=== PATIENT | male | born 1960 | race Caucasian/White ===

== ENCOUNTER 2020-06-13 09:24 | Outpatient (REF) | payer MEDICARE, OTHER, SELFPAY ==
--- NOTE | ~2020-06-13 | US_ITS ---
EXAMINATION: US ABDOMEN COMPLETE CLINICAL INFORMATION: Abnormal findings of blood chemistry. COMPARISON: Renal ultrasound 10/16/2009. Ultrasound abdomen 06/19/2009. TECHNIQUE: Real-time imaging of the abdominal viscera. FINDINGS: PANCREAS: The head and the body of pancreas is homogeneous in echotexture. The tail is obscured by overlying gas. ABDOMINAL AORTA: The abdominal aorta is of normal caliber except for nonvisualization of mid segment. INFERIOR VENA CAVA: Visualized portions are normal. LIVER: The liver is normal in size. The liver contour is normal. There is diffuse increased liver echogenicity with coarse echotexture. No focal hepatic lesion. There is no intrahepatic biliary duct dilatation seen. GALLBLADDER: Normal. The gallbladder is physiologically distended without evidence of stones, sludge, polyps, wall thickening or pericholecystic fluid. COMMON BILE DUCT: Normal in caliber measuring 0.4 cm in diameter. RIGHT KIDNEY: Normal. No hydronephrosis. No renal calculi or focal parenchymal lesions. The kidney measures 12.2 cm in maximum dimension. LEFT KIDNEY: There is an anechoic cyst midpole measuring 10.1 x 8.9 x 9.41 cm. No hydronephrosis or renal calculi. The kidney measures 14.5 cm in maximum dimension. SPLEEN: Normal. The spleen measures 11.8 cm in maximum dimension. FREE FLUID: None. US/US abdomen complete IMPRESSION: Coarse echogenic liver with no focal lesion seen. Anechoic cyst midpole left kidney. Rest of the abdominal ultrasound is unremarkable.
== END 2020-06-13 09:25 | disposition home or self-care (01) ==
LOC: HO.US 09:24
PROVIDERS: PCP Internal Medicine; Visit Provider Internal Medicine
DX: R79.89 Other specified abnormal findings of blood chemistry (principal)
CPT/HCPCS: 76700

== ENCOUNTER 2020-09-27 10:19 | Outpatient (REF) | payer MEDICARE, MEDICAID, SELFPAY ==
[2020-09-27 12:40] LABS: Alanine Aminotransferase 34 U/L (0-40); Albumin Level 4.3 g/dL (3.5-5.0); Alkaline Phosphatase 62 U/L (39-117); Anion Gap 12 (12-20); Aspartate Amino Transferase 28 U/L (5-37); Bilirubin Total 0.9 mg/dL (0.0-1.0); Blood Urea Nitrogen 12 mg/dL (9-16); Calcium 8.8 mg/dL (8.4-10.2); Carbon Dioxide 24 mmol/L (22-29); Chloride 104 mmol/L (96-108); Cholesterol 115 mg/dL; Estimated Glomerular Filt Rate > 60; Glucose Random 101 mg/dL (60-115); HDL Cholesterol 30 mg/dL; LDL Cholesterol Calculated 66 mg/dl; Potassium 3.9 mmol/L (3.3-5.1); Sodium 136 mmol/L (135-145); Total Protein 7.4 g/dL (6.5-8.0); Triglycerides 99 mg/dL
[2020-09-27 13:28] LABS: Creatinine Urine 53.72 mg/dL; Microalbum/Creatinine Ratio Ur 44.6 ug/mg cr
[2020-09-28 07:46] LABS: LDL Cholesterol Direct 59 mg/dL (<100)
== END 2020-09-27 10:20 | disposition home or self-care (01) ==
LOC: HO.LAB 10:19
PROVIDERS: PCP Internal Medicine; Visit Provider Internal Medicine
DX: E11.65 Type 2 diabetes mellitus with hyperglycemia (principal); E78.5 Hyperlipidemia, unspecified; E55.9 Vitamin D deficiency, unspecified; I10 Essential (primary) hypertension; Z79.899 Other long term (current) drug therapy
CPT/HCPCS: 36415; 80053; 80061; 82043; 82947; 83036; 83721; 99202

== ENCOUNTER 2021-07-19 08:19 | Outpatient (REF) | payer MEDICARE, MEDICAID, SELFPAY ==
--- NOTE | 2021-07-19 14:59 | MHC.AU.HAS ---
Hearing Aid Evaluation Date of Visit: 07/19/21 Historical Information: Description of Hearing: Right ear- Normal hearing through 1000 Hz, sloping to a mild to moderately-severe SNHL 4407-7958 Hz. Left ear- Mild HL at 250 Hz, rising to normal 500-1000 Hz, then sloping to a mild to moderately-severe SNHL 5784-0380 Hz. Current personal amplification information, if applicable: None Summary: Demetris was recently seen at [facility] and received medical clearance for hearing aid use in both ears from Dr. Vallejo. Binaural amplification is recommended to help facilitate improved communication. He notes difficulties hearing the TV, in background noise, and often asks for repetition. 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 Discussed hearing aid styles and technologies. He is interested in rechargeable ELLIOTT style hearing aids couple with domes. He is interested in Bluetooth connectivity with his Oravel phone and his PC laptop. Hearing Aid Prescription: Based on the individual?s shared listening needs, communication environments, dexterity, desire for connectivity, and personal preferences, the following prescription for amplification has been made: Right ear: Sourcing Associate: Phonak Model: Audeo P70-R Battery Size: Rechargeable Color: H0- Beige Customer Service Sales Associate: Size 2 M Type of Dome: Open Left ear: Left ear prescription to be same as Right Hearing Aid above: Sourcing Associate: Phonak Model: Audeo P70-R Battery Size: Rechargeable Color: H0- Beige Customer Service Sales Associate: Size 2 M Type of Dome: Open Plan of Care: Hearing aids were ordered today. Hearing aid fitting will be scheduled when hearing aids arrive. Primary Diagnosis: H90.3 Bilateral Sensorineural Hearing Loss Signature: Provider: Elana Galo, [facility]
== END 2021-07-19 08:20 | disposition home or self-care (01) ==
LOC: HO.HAP 08:19
PROVIDERS: Visit Provider Internal Medicine
DX: Z46.1 Encounter for fitting and adjustment of hearing aid (principal); H90.3 Sensorineural hearing loss, bilateral
CPT/HCPCS: 92591

== ENCOUNTER 2021-08-03 15:49 | Outpatient (REF) | payer MEDICARE, MEDICAID, SELFPAY | END 2021-08-03 15:50 | disposition home or self-care (01) | LOC: HO.HAP 15:49 | PROVIDERS: Visit Provider Otolaryngology | DX: Z46.1 Encounter for fitting and adjustment of hearing aid (principal); H90.3 Sensorineural hearing loss, bilateral | CPT/HCPCS: V5011; V5020; V5160; V5261 ==

== ENCOUNTER 2021-08-23 08:14 | Outpatient (REF) | payer MEDICARE, MEDICAID, SELFPAY | END 2021-08-23 08:15 | disposition home or self-care (01) | LOC: HO.HAP 08:14 | PROVIDERS: Visit Provider Internal Medicine | DX: Z13.89 Encounter for screening for other disorder (principal) ==

== ENCOUNTER 2022-02-18 07:31 | Outpatient (REF) | payer MEDICARE, MEDICAID, SELFPAY ==
[2022-02-18 10:04] LABS: Alanine Aminotransferase 87 U/L (0-40); Anion Gap 18 (12-20); Aspartate Amino Transferase 51 U/L (5-37); Bilirubin Total 0.9 mg/dL (0.0-1.0); Blood Urea Nitrogen 16 mg/dL (9-16); Calcium 9.6 mg/dL (8.4-10.2); Carbon Dioxide 22 mmol/L (22-29); Chloride 103 mmol/L (96-108); Estimated Glomerular Filt Rate > 60; Glucose Random 173 mg/dL (60-115); Potassium 3.4 mmol/L (3.3-5.1); Sodium 140 mmol/L (135-145); Total Protein 7.8 g/dL (6.5-8.0)
[2022-02-18 10:05] LABS: Albumin Level 4.4 g/dL (3.5-5.0); Alkaline Phosphatase 63 U/L (39-117); Cholesterol 134 mg/dL; HDL Cholesterol 29 mg/dL; LDL Cholesterol Calculated 48 mg/dl; Triglycerides 286 mg/dL
[2022-02-18 10:06] LABS: Creatinine Urine 49.61 mg/dL; Microalbum/Creatinine Ratio Ur 56.4 ug/mg cr
[2022-02-18 10:26] LABS: Free T4 (Free Thyroxine) 1.04 ng/dL (0.71-1.85); Thyroid Stimulating Hormone 2.38 uIU/mL (0.32-4.0)
[2022-02-19 09:02] LABS: LDL Cholesterol Direct 62 mg/dL (<100)
== END 2022-02-18 07:32 | disposition home or self-care (01) ==
LOC: HO.LAB 07:31
PROVIDERS: PCP Internal Medicine; Visit Provider Internal Medicine
DX: E11.65 Type 2 diabetes mellitus with hyperglycemia (principal); E78.5 Hyperlipidemia, unspecified; I10 Essential (primary) hypertension; E04.9 Nontoxic goiter, unspecified
CPT/HCPCS: 36415; 80053; 80061; 82043; 82947; 83036; 83721; 84439; 84443; 99212

== ENCOUNTER 2022-03-25 12:55 | Outpatient (REF) | payer MEDICARE, MEDICAID, SELFPAY ==
--- NOTE | ~2022-03-25 | US_ITS ---
EXAMINATION: US THYROID CLINICAL INFORMATION: Nontoxic goiter, unspecified. COMPARISON: None TECHNIQUE: Linear transducer grayscale and color Doppler examination with attention to the region of the thyroid. FINDINGS: SIZE: Measurements of the thyroid lobes and nodules are given in sagittal, anteroposterior and transverse dimensions respectively. Right Thyroid Lobe: 4.4 x 2.0 x 1.7 cm, volume 7.8 mL. Parenchyma: The gland echotexture is heterogeneous. Thyroid vascularity is normal. Left Thyroid Lobe: 3.8 x 1.4 x 1.5 cm, volume 4.2 mL. Parenchyma: The gland echotexture is heterogeneous. Thyroid vascularity is normal. Isthmus: 0.4 cm in maximum AP dimension. No focal thyroid nodule is seen. NODES: No lymphadenopathy is seen in the tissue surrounding the thyroid gland. US/US thyroid IMPRESSION: 1. No thyroid nodule, altered vascularity or echotexture are seen. 2. There is heterogeneous thyroid echotexture, which can be associated with thyroiditis. ACR TI-RADS RECOMMENDATION REFERENCE: Ultrasound-guided fine-needle aspiration, followup ultrasound, no further follow up. * TR1 (0 point) and TR 2 (2 points): No FNA or follow up. * TR3 (3 points): FNA if more than or equal to 2.5 cm in maximum dimension, followup ultrasound in 1, 3 and 5 years if 1.5 to 2.4 cm in maximum dimension. * TR4 (4-6 points): FNA if more than or equal to 1.5 cm in maximum dimension, followup ultrasound in 1, 2, 3 and 5 years if 1 to 1.4 cm in maximum dimension. * TR5 (more than or equal to 7 points): FNA if more than or equal to 1 cm in maximum dimension, followup ultrasound every year for 5 years if 0.5 to 0.9 cm in maximum dimension. * TR3, TR4 or TR5 nodules that are below the size threshold for followup receive no follow up.
== END 2022-03-25 12:56 | disposition home or self-care (01) ==
LOC: HO.US 12:55
PROVIDERS: Visit Provider Internal Medicine
DX: E04.9 Nontoxic goiter, unspecified (principal)
CPT/HCPCS: 76536

== ENCOUNTER → 2022-04-01 08:15 | Outpatient (BNVA) | payer MEDICARE, MEDICAID, SELFPAY | PROVIDERS: PCP Internal Medicine; Visit Provider Internal Medicine | DX: E11.65 Type 2 diabetes mellitus with hyperglycemia (principal); E78.5 Hyperlipidemia, unspecified; I10 Essential (primary) hypertension; E66.9 Obesity, unspecified; Z68.42 Body mass index [BMI] 45.0-49.9, adult; Z79.84 Long term (current) use of oral hypoglycemic drugs | CPT/HCPCS: 82947; 99212 ==

== ENCOUNTER → 2022-04-05 14:26 | Outpatient (BNVA) | payer MEDICARE, MEDICAID, SELFPAY | PROVIDERS: PCP Internal Medicine; Visit Provider Registered Nurse Diabetes Educator | DX: E11.65 Type 2 diabetes mellitus with hyperglycemia (principal); I10 Essential (primary) hypertension; E78.5 Hyperlipidemia, unspecified; E55.9 Vitamin D deficiency, unspecified | CPT/HCPCS: 99211 ==

== ENCOUNTER → 2022-04-12 09:25 | Outpatient (BNVA) | payer MEDICARE, MEDICAID, SELFPAY | PROVIDERS: PCP Internal Medicine; Visit Provider Physician Assistant | DX: Z13.89 Encounter for screening for other disorder (principal) ==

== ENCOUNTER → 2022-04-22 08:26 | Outpatient (BNVA) | payer MEDICARE, MEDICAID, SELFPAY | PROVIDERS: PCP Internal Medicine; Visit Provider Surgery | DX: E66.01 Morbid (severe) obesity due to excess calories (principal); E11.65 Type 2 diabetes mellitus with hyperglycemia; E29.1 Testicular hypofunction; E78.5 Hyperlipidemia, unspecified; I10 Essential (primary) hypertension; G47.30 Sleep apnea, unspecified; Z68.42 Body mass index [BMI] 45.0-49.9, adult | CPT/HCPCS: Q3014 ==

== ENCOUNTER 2022-04-23 08:54 | Outpatient (REF) | payer MEDICARE, MEDICAID, SELFPAY ==
--- NOTE | ~2022-04-23 | XR_ITS ---
EXAMINATION: XR CHEST CLINICAL INFORMATION: Morbid obesity COMPARISON: None TECHNIQUE: 2 views of the chest were obtained. FINDINGS: Cardiac and mediastinal silhouette is within normal limits. Mild central vascular prominence. No overt pulmonary edema. No focal consolidation, effusion, or pneumothorax. Mild dorsal spine degeneration. XR/XR chest 2V IMPRESSION: Mild central vascular prominence without overt pulmonary edema.
--- NOTE | ~2022-04-23 | US_ITS ---
EXAMINATION: US COMPLETE ABDOMEN WITH LIVER ELASTOGRAPHY CLINICAL INFORMATION: Obesity ultrasound 06/13/2020 COMPARISON: None. TECHNIQUE: Real-time imaging of the abdominal viscera. Noninvasive ultrasound liver fibrosis assessment is performed using Chuyita ElastPQ point quantification shear wave elastography (2D-SWE) with a C5-2 MHz transducer. Multiple elastography samples are obtained. FINDINGS: PANCREAS: Obscured by bowel gas. Partially visualized neck appears unremarkable. ABDOMINAL AORTA: The proximal, middle, and distal aortic segments are normal in caliber. INFERIOR VENA CAVA: Visualized portions are normal. LIVER: Diffuse increased parenchymal echogenicity. No focal lesion or intrahepatic biliary duct dilatation. The right lobe measures 15.2 cm in length. The left lobe measures 12.8 cm in length. Portal flow is hepatopedal Shear wave liver elastography median stiffness is 1.83 m/s (reference: normal median stiffness is 1.3 m/s or less). IQR/median stiffness to assess sampling precision is 0.2 (reference: good quality data set is IQR/median stiffness of 0.15 or less). GALLBLADDER: Normal. The gallbladder is physiologically distended without evidence of stones, sludge, polyps, wall thickening or pericholecystic fluid. COMMON BILE DUCT: Prominent measuring 0.9 cm in diameter. This previously measured 0.4 cm. RIGHT KIDNEY: Normal. No hydronephrosis. No renal calculi or focal parenchymal lesions. The kidney measures 12.8 cm in maximum dimension. LEFT KIDNEY: Normal. No hydronephrosis. No renal calculi. Mid/lower pole 11.1 x 8.2 x 8.9 cm anechoic cyst. The kidney measures 15.4 cm in maximum dimension. SPLEEN: Normal. The spleen measures 12.5 cm in maximum dimension. FREE FLUID: None. US/US abdomen comp w elastography IMPRESSION: 1. . There is generalized increase in hepatic echotexture, consistent with fatty infiltration or hepatocellular disease. Please correlate clinically. No focal hepatic mass or intrahepatic biliary duct dilatation is seen. 2. CBD is prominent measuring 0.9 cm. Correlate with liver function tests. 3. Liver elastography: Liver stiffness 1.8 m/s. As per the guidelines, this is suggestive of of compensated advanced chronic liver disease but need further test for confirmation. 3. Pancreas obscured by bowel gas. 4. Right renal 11.1 cm cyst. REFERENCE: Society of Radiologists in Ultrasound Liver Stiffness Thresholds (2020): LIVER STIFFNESS THRESHOLDS: *Liver Stiffness equal or less than 1.3 m/s: High probability of being normal. *Liver Stiffness less than 1.7 m/s: In the absence of other known clinical signs, rules out compensated advanced chronic liver disease. *Liver Stiffness 1.7-2.1 m/s: Suggestive of compensated advanced chronic liver disease but need further test for confirmation. *Liver Stiffness over 2.1 m/s: Rules in compensated advanced chronic liver disease. *Liver Stiffness over 2.4 m/s: Suggestive of clinically significant portal hypertension. QUALITY OF DATA SET: *IQR/Median value equal or less than 0.15 implies a quality data set. *IQR/Median value over 0.15 implies a poor quality data set. SIGNIFICANT CHANGE FROM PRIOR EXAM: Significant change if liver stiffness measurement is 10% or greater from prior exam. OTHER CONSIDERATIONS: The stage of liver fibrosis may be overestimated in the setting of acute hepatitis, liver inflammation, elevated liver function tests, hepatic vascular congestion, obstructive cholestasis, non-fasting state, and infiltrative diseases such as amyloidosis and lymphoma. In some patients with NAFLD, the liver stiffness thresholds for compensated advanced chronic liver disease may be lower. In causes other than viral hepatitis and NAFLD, liver stiffness thresholds are not well established.
--- NOTE | 2022-04-23 09:01 | ECG_ITS ---
Test Reason : e66.01 Blood Pressure : / mmHG Vent. Rate : 085 BPM Atrial Rate : 085 BPM P-R Int : 178 ms QRS Dur : 100 ms QT Int : 388 ms P-R-T Axes : 052 -22 018 degrees QTc Int : 461 ms Normal sinus rhythm Minimal voltage criteria for LVH, may be normal variant ( R in aVL ) Inferior infarct , age undetermined Abnormal ECG When compared with ECG of 14-SEP-2013 15:03, inferior infarct present Referred By: Bigg Alvarado Electronically Signed By:Ventura Ramires
[2022-04-23 09:22] LABS: MANUAL DIFF FLAG NO
[2022-04-23 09:25] LABS: Basophils Percent Auto 0.3 % (0-2); Eosinophils Absolute Auto 0.2 X10*3/uL (0.0-0.4); Eosinophils Percent Auto 3.6 % (0-4); Hematocrit 43.2 % (42.0-52.0); Hemoglobin 14.9 g/dl (14.0-18.0); Imm Gran Abs Auto 0.05 X10*3/uL (0.00-0.03); Imm Gran Pct Auto 0.8 % (0.0-0.4); Lymphocytes Absolute Auto 2.2 X10*3/uL (1.2-4.9); Lymphocytes Percent Auto 35.3 % (20-40); Mean Corpuscular HGB Conc 34.5 g/dl (31.0-36.0); Mean Corpuscular Hemoglobin 32.3 pg (27.0-33.0); Mean Corpuscular Volume 93.7 fL (80.0-98.0); Mean Platelet Volume 9.4 fL (9.4-12.4); Monocytes Absolute Auto 0.4 X10*3/uL (0.1-1.2); Monocytes Percent Auto 6.8 % (2-11); Neutrophils Absolute Auto 3.4 x10*3/uL (2.0-8.3); Neutrophils Percent Auto 53.2 % (45-73); Platelet Count 199 X10*3/uL (160-400); Red Blood Count 4.61 X10*6/uL (4.60-5.80); Red Cell Distribution Width 13.4 % (11.0-16.0); White Blood Count 6.3 X10*3/uL (4.8-10.8)
[2022-04-23 09:32] LABS: Estimated Average Glucose 163 mg/dL; Hemoglobin A1c % 7.3 %
[2022-04-23 10:08] LABS: Alanine Aminotransferase 81 U/L (0-40); Albumin Level 4.2 g/dL (3.5-5.0); Alkaline Phosphatase 51 U/L (39-117); Anion Gap 12 (12-20); Aspartate Amino Transferase 62 U/L (5-37); Bilirubin Total 0.7 mg/dL (0.0-1.0); Blood Urea Nitrogen 21 mg/dL (9-16); C Reactive Protein 0.58 mg/dL (< or = 0.50); Calcium 8.9 mg/dL (8.4-10.2); Carbon Dioxide 25 mmol/L (22-29); Chloride 107 mmol/L (96-108); Cholesterol 162 mg/dL; Estimated Glomerular Filt Rate > 60; Glucose Random 131 mg/dL (60-115); HDL Cholesterol 26 mg/dL; Iron 63 mcg/dL (45-160); LDL Cholesterol Calculated 101 mg/dl; Percent Iron Saturation 21 % (15-50); Potassium 3.7 mmol/L (3.3-5.1); Sodium 140 mmol/L (135-145); Total Iron Binding Capacity 294 mcg/dL (228-428); Total Protein 7.3 g/dL (6.5-8.0); Triglycerides 178 mg/dL; Unsaturated Iron Binding 231 ug/dL
[2022-04-23 10:17] LABS: Ferritin 203 ng/mL (20-250); Insulin 17 uU/mL (2-29); TSH reflex Free T4 2.41 uIU/mL (0.32-4.0); Vitamin D 25-OH Total 22.5 ng/mL (>30)
[2022-04-23 10:27] LABS: Folate 13.5 ng/mL (> or = 4.0); Vitamin B12 294 pg/mL (200-900)
[2022-04-24 10:48] LABS: Calcium (PTHI) 8.9 mg/dL (8.6-10.3); PTHI 77 pg/mL (16-77)
[2022-04-26 17:47] LABS: Zinc 70 mcg/dL (60-130)
[2022-04-28 17:19] LABS: Vitamin A 51 mcg/dL (38-98); Vitamin B1 11 nmol/L (8-30)
== END 2022-04-23 08:55 | disposition home or self-care (01) ==
LOC: HO.LAB 08:54
PROVIDERS: PCP Internal Medicine; Visit Provider Surgery
DX: E66.01 Morbid (severe) obesity due to excess calories (principal); I10 Essential (primary) hypertension; E11.65 Type 2 diabetes mellitus with hyperglycemia; E78.5 Hyperlipidemia, unspecified; G47.30 Sleep apnea, unspecified
CPT/HCPCS: 36415; 71046; 76705; 76981; 80053; 80061; 82306; 82607; 82728; 82746; 83036; 83525; 83540; 83970; 84425; 84443; 84590; 84630; 85025; 86140; 93005

== ENCOUNTER → 2022-04-29 09:23 | Outpatient (BNVA) | payer MEDICARE, MEDICAID, SELFPAY | PROVIDERS: PCP Internal Medicine; Visit Provider Physician Assistant Surgical | DX: Z11.0 Encounter for screening for intestinal infectious diseases (principal) | CPT/HCPCS: 99211 ==

== ENCOUNTER 2022-04-29 15:22 | Outpatient (REF) | payer MEDICARE, MEDICAID, SELFPAY ==
[2022-05-01 11:30] LABS: H Pylori Breath Test Negative (Negative)
== END 2022-04-29 15:23 | disposition home or self-care (01) ==
LOC: HO.LNP 15:22
PROVIDERS: Visit Provider Surgery
DX: E11.65 Type 2 diabetes mellitus with hyperglycemia (principal); I10 Essential (primary) hypertension; E66.01 Morbid (severe) obesity due to excess calories; E78.5 Hyperlipidemia, unspecified; G47.30 Sleep apnea, unspecified
CPT/HCPCS: 83013

== ENCOUNTER → 2022-04-30 09:00 | Outpatient (BNVA) | payer OTHER, MEDICARE, MEDICAID, SELFPAY | PROVIDERS: PCP Internal Medicine; Visit Provider Counselor Mental Health | DX: F50.81 Binge eating disorder (principal); E66.9 Obesity, unspecified | CPT/HCPCS: 90791 ==

== ENCOUNTER → 2022-05-08 07:49 | Outpatient (REF) | payer MEDICARE, MEDICAID, SELFPAY ==
--- NOTE | 2022-05-08 07:52 | CA_ITS ---
Transthoracic Echocardiogram Patient (Last, First, Middle): Demetris Byrd D Gender: Male Date of : 1960 Age: 62 Procedure Date: 05/08/2022 Procedure Type: Transthoracic Echocardiogram Location: OP Height: 167.64 cm Weight: 126.1 kg BSA: 2.30 m2 Heart Rate: 76 bpm BP: 156 / 76 mmHg Nurse Educator: SB Referring MD: Bigg Alvarado MD Symptoms: I21.19 - ST elevation (STEMI) myocardial infarction involving other juan... Study Quality: Adequate w contrast ECG Rhythm: Sinus Conclusions: - The left ventricular systolic function is normal. The visually estimated ejection fraction is between 55-60%. - No obvious valvular pathology seen on this study. - There is mild dilatation of the ascending aorta measuring 3.90 cm. Findings Procedure Information Contrast agent, definity, is being given per protocol without apparent complications. Left Ventricle Normal left ventricular cavity size. There is normal left ventricular wall thickness. The left ventricular systolic function is normal. The visually estimated ejection fraction is between 55-60%. There is no evidence of regional wall motion abnormalities. Diastolic function is normal for age. Right Ventricle Normal right ventricular cavity size and systolic function. Atria Both atria are normal in size. Aortic Valve There is a normal trileaflet aortic valve. There is no aortic valve stenosis. There is no aortic valve regurgitation. Mitral Valve The mitral valve appears normal. There is no mitral valve regurgitation. There is no mitral valve stenosis. Pulmonic Valve The pulmonic valve is likely normal. Tricuspid Valve There is no tricuspid valve regurgitation. Tricuspid regurgitation envelope is inadequate for calculation of right ventricular systolic pressure. Great Vessels There is mild dilatation of the ascending aorta measuring 3.90 cm. Venous The inferior vena cava is normal in size and collapses greater than 50% with inspiration. Pericardium/Pleural There is no evidence of pericardial effusion. Prior Study Comparison Changes noted compared to prior study dated: 09/18/2018. Change in aortic dimensions, but could also be technical. Recommendations, Care & Conclusions No obvious valvular pathology seen on this study. Measurements 2D Linear Measurements IVSd: 0.85 0.6-0.9/0.6-1.0 cm LVIDd: 5.29 3.9-5.3/4.2-5.9 cm LVIDd Index: 2.30 2.4-3.2/2.2-3.1 cm/m2 LVIDs: 3.71 2.0-3.6 cm LVPWd: 1.08 0.7-1.1 cm LA Diam: 4.00 2.7-3.8/3.0-4.0 cm LAIDs Index: 1.74 1.5-2.3 cm/m2 LV Mass: 238.12 67-162/88-224 g LV Mass Index: 103.53 43-95/49-115 g/m2 LVOT Diam: 2.00 3.0+(-)1.3 cm 2D Systolic Function EF 4C: 58.20 >55% EF 2C: 67.60 >55% EF BiP: 64.00 >55% Mitral Valve MV Pk E: 0.80 MV PK A: 0.96 MV Decel Time: 230.00 E/A: 0.80 E'Lateral: 9.03 E'Medial: 7.83 E/E' Med: 10.20 E/E' Lat: 8.80 PHT: 67.00 MVA PHT: 3.28 Decel Concordia: 3.46 Aortic Valve AoV Pk Pedro: 1.42 AoV Pk Grad: 8.00 ROGER: 2.86 LVOT LVOT Pk Pedro: 1.33 LVOT Mn Pedro: 0.82 LVOT VTI: 0.26 LVOT Pk Grad: 7.00 LVOT Mn Grad: 3.00 LVOT Diam: 2.00 LVOT Area: 3.14 Diastolic Function MV Pk E: 0.80 MV Pk A: 0.96 E/A: 0.80 E'Medial: 7.83 E/E' Med: 10.20 E' Laterial: 9.03 E/E' Lat: 8.80 Right Ventricle TAPSE (mm): 20.70 TVS' Pedro: 14.40 Tricuspid Valve RA Press: 3.00 Great Vessels Aorta Sinus of Valsalva: 3.20 2.0-3.5 cm Ao Asc: 3.90 2.1-3.4 cm Pulmonary Veins Pulm Vein S/D 1.10 Pulmonary Valve PV Pk Pedro: 1.29 Peak PV Grad: 7.00 Updated in Other Vendor System with Status of Final Gabino Colin MD electronically signed on 05/10/2022 12:14:56 PM with status of Final
== END ==
LOC: HO.CARD 07:49
PROVIDERS: Visit Provider Surgery
DX: Z01.818 Encounter for other preprocedural examination (principal); I21.19 ST elevation (STEMI) myocardial infarction involving other coronary artery of inferior wall; R06.02 Shortness of breath; R94.31 Abnormal electrocardiogram [ECG] [EKG]
CPT/HCPCS: 93306; Q9957

== ENCOUNTER → 2022-05-13 09:04 | Outpatient (REF) | payer MEDICARE, MEDICAID, SELFPAY ==
--- NOTE | ~2022-05-13 | NM_ITS ---
Lexiscan Myocardial perfusion study Indication: Preoperative cardiovascular evaluation Technique: The patient was brought in for a Lexiscan perfusion study on 05/13/2022 and was injected 0.4 mg of Lexiscan intravenously. Within a minute of this injection 45 mCi of sestamibi was given intravenously. Images were obtained using the SPECT gamma camera interlaced with the gating device. Images were obtained in supine position. Resting perfusion study was performed on 05/14/2022. Patient was administered 45 mCi of sestamibi intravenously at rest. Images were then obtained in supine position. Total DLP 195mGy-cm. Images were processed with the software and compared side to side in short axis, horizontal long axis and vertical long axis views. Findings: Raw acquisition reviewed. The stress perfusion study showed diminished tracer uptake in the distal part of inferior wall. With CT attenuation correction, there is significant improvement suggestive of diaphragmatic attenuation artifact. There is also subdiaphragmatic tracer uptake that interferes with inferior wall assessment. The gated study shows normal LV systolic function with calculated LVEF of 60%. LV cavity is normal in size. The gated study shows normal wall thickening and contraction of segments. Resting study shows mildly diminished tracer uptake in the distal part of inferior wall. There is improvement with CT attenuation correction suggestive of diaphragmatic attenuation artifact. There is also subdiaphragmatic tracer uptake that interferes with inferior wall assessment. Gating at rest reveals normal wall motion with ejection fraction at 51%. The findings are consistent with no clear reversible defects. The distal inferior defect with some reversible/fixed components but could be related to diaphragmatic attenuation/subdiaphragmatic uptake. NM/NM manisha perf SPECT rest & str Impression: 1. Myocardial perfusion imaging study shows no clear evidence of any ischemia or infarction. Probably normal perfusion. 2. Gated LVEF is 60% during stress and 51% during rest. 3. Transient ischemic dilatation not present. EKG component of the test reported separately.
--- NOTE | 2022-05-13 09:08 | CA_ITS ---
Acquisition Time: 2022-05-13 09:30:43 Total Exercise Time: 00:02:00 Test Indications: Abnormal ECG Medications: SEE H Protocol: LEXISCAN Max HR: 114 BPM 71% of Pred: 160 BPM Max BP: 148/084 mmHG Max Work Load: 1.0 METS Pharmacological stress test with Lexiscan injection, while sitting and kicking his legs, without anginal symptoms, without arrythmia, with normotensive response to injection, with nondiagnostic EKG for ischemia. Nuclear images pending. Test reviewed with Dr Ramires. Referred By: Bigg Alvarado Overread By: BREEZY REDDY
== END ==
LOC: HO.CARD 09:04
PROVIDERS: Visit Provider Surgery
DX: Z01.818 Encounter for other preprocedural examination (principal); I21.19 ST elevation (STEMI) myocardial infarction involving other coronary artery of inferior wall; R06.02 Shortness of breath; R94.31 Abnormal electrocardiogram [ECG] [EKG]; E66.01 Morbid (severe) obesity due to excess calories; E11.9 Type 2 diabetes mellitus without complications
CPT/HCPCS: 78452; 93017; 97802; A9500; J0280; J2785

== ENCOUNTER → 2022-05-20 09:22 | Outpatient (BNVA) | payer MEDICARE, MEDICAID, SELFPAY | PROVIDERS: PCP Internal Medicine; Visit Provider Surgery | DX: F50.81 Binge eating disorder (principal); E66.01 Morbid (severe) obesity due to excess calories; Z68.41 Body mass index [BMI] 40.0-44.9, adult | CPT/HCPCS: 90834; 99212 ==

== ENCOUNTER 2022-05-24 10:01 | Outpatient (REF) | payer MEDICARE, MEDICAID, SELFPAY ==
--- NOTE | ~2022-05-24 | FL_ITS ---
EXAMINATION: XR FLUOROSCOPY UPPER GI WITH AIR CLINICAL INFORMATION: Morbid (severe) obesity due to excess calories. COMPARISON: None TECHNIQUE: Acute upper GI air-contrast study was performed. FINDINGS: Following oral administration of thick barium and effervescent granules there is normal propagation of bolus from the oral cavity through the pharynx and esophagus without any evidence of obstruction, narrowing or stricture. On placing patient supine and prone lying the course, caliber and peristalsis of the stomach and the duodenal bulb is normal. No gastroesophageal reflux or hiatal hernia seen. FLUOROSCOPY TIME: 1.7 minutes DOSE AREA PRODUCT: 70.304 uGy-m2 (microgray-meter squared) FL/FL upper GI w air IMPRESSION: Unremarkable upper GI air-contrast study.
== END 2022-05-24 10:02 | disposition home or self-care (01) ==
LOC: HO.XRAY 10:01
PROVIDERS: PCP Internal Medicine; Visit Provider Surgery
DX: Z01.818 Encounter for other preprocedural examination (principal); E66.01 Morbid (severe) obesity due to excess calories; G47.30 Sleep apnea, unspecified; E78.5 Hyperlipidemia, unspecified; I10 Essential (primary) hypertension; E11.65 Type 2 diabetes mellitus with hyperglycemia; K21.9 Gastro-esophageal reflux disease without esophagitis
CPT/HCPCS: 74246

== ENCOUNTER → 2022-05-30 11:42 | Outpatient (BNVA) | payer MEDICARE, MEDICAID, SELFPAY | PROVIDERS: PCP Internal Medicine; Visit Provider Dietitian, Registered | DX: E66.01 Morbid (severe) obesity due to excess calories (principal); E11.9 Type 2 diabetes mellitus without complications; Z71.3 Dietary counseling and surveillance | CPT/HCPCS: 97803 ==

== ENCOUNTER → 2022-06-10 08:31 | Outpatient (BNVA) | payer MEDICARE, MEDICAID, SELFPAY | PROVIDERS: PCP Internal Medicine; Visit Provider Surgery | DX: F50.81 Binge eating disorder (principal); E66.01 Morbid (severe) obesity due to excess calories; Z68.41 Body mass index [BMI] 40.0-44.9, adult | CPT/HCPCS: 90834; Q3014 ==

== ENCOUNTER → 2022-06-14 12:58 | Outpatient (BNVA) | payer MEDICARE, MEDICAID, SELFPAY | PROVIDERS: PCP Internal Medicine; Visit Provider Surgery | DX: Z13.89 Encounter for screening for other disorder (principal) ==

== ENCOUNTER → 2022-06-17 09:09 | Outpatient (BNVA) | payer MEDICARE, MEDICAID, SELFPAY | PROVIDERS: PCP Internal Medicine; Visit Provider Surgery | DX: E66.01 Morbid (severe) obesity due to excess calories (principal); Z68.41 Body mass index [BMI] 40.0-44.9, adult; E78.5 Hyperlipidemia, unspecified; I10 Essential (primary) hypertension; E11.65 Type 2 diabetes mellitus with hyperglycemia; K21.9 Gastro-esophageal reflux disease without esophagitis; R11.0 Nausea | CPT/HCPCS: Q3014 ==

== ENCOUNTER → 2022-06-27 11:00 | Outpatient (BNVA) | payer OTHER, MEDICARE, MEDICAID, SELFPAY | PROVIDERS: PCP Internal Medicine; Visit Provider Counselor Mental Health | DX: F50.81 Binge eating disorder (principal); E66.9 Obesity, unspecified | CPT/HCPCS: 90834 ==

== ENCOUNTER 2022-07-02 10:16 | Inpatient (IN) | payer MEDICARE, MEDICAID, SELFPAY ==
[2022-06-24 09:38] LABS: MANUAL DIFF FLAG NO
[2022-06-24 09:56] LABS: Basophils Percent Auto 0.3 % (0-2); Eosinophils Absolute Auto 0.2 X10*3/uL (0.0-0.4); Eosinophils Percent Auto 3.3 % (0-4); Hemoglobin 15.6 g/dl (14.0-18.0); Imm Gran Abs Auto 0.02 X10*3/uL (0.00-0.03); Imm Gran Pct Auto 0.3 % (0.0-0.4); Lymphocytes Absolute Auto 1.8 X10*3/uL (1.2-4.9); Lymphocytes Percent Auto 23.8 % (20-40); Mean Corpuscular HGB Conc 34.7 g/dl (31.0-36.0); Mean Corpuscular Hemoglobin 31.8 pg (27.0-33.0); Mean Corpuscular Volume 91.8 fL (80.0-98.0); Mean Platelet Volume 9.9 fL (9.4-12.4); Monocytes Absolute Auto 0.5 X10*3/uL (0.1-1.2); Monocytes Percent Auto 6.4 % (2-11); Neutrophils Absolute Auto 4.9 x10*3/uL (2.0-8.3); Neutrophils Percent Auto 65.9 % (45-73); Platelet Count 210 X10*3/uL (160-400); Red Cell Distribution Width 12.5 % (11.0-16.0); White Blood Count 7.4 X10*3/uL (4.8-10.8)
[2022-06-24 09:58] LABS: INTERNATIONAL NORM RATIO 1.1 (0.9-1.1); Prothrombin Time 12.9 SEC (10.0-13.1)
[2022-06-24 10:01] LABS: Partial Thromboplastin Time 30.3 SEC (26.0-36.4)
[2022-06-24 10:20] LABS: Estimated Average Glucose 114 mg/dL; Hemoglobin A1c % 5.6 %
[2022-06-24 11:35] LABS: Alanine Aminotransferase 42 U/L (0-40); Albumin Level 4.1 g/dL (3.5-5.0); Alkaline Phosphatase 66 U/L (39-117); Anion Gap 12 (12-20); Aspartate Amino Transferase 30 U/L (5-37); Bilirubin Total 1.2 mg/dL (0.0-1.0); Blood Urea Nitrogen 20 mg/dL (9-16); C Reactive Protein 1.62 mg/dL (< or = 0.50); Calcium 8.9 mg/dL (8.4-10.2); Carbon Dioxide 29 mmol/L (22-29); Chloride 103 mmol/L (96-108); Cholesterol 74 mg/dL; Estimated Glomerular Filt Rate > 60; Glucose Random 99 mg/dL (60-115); HDL Cholesterol 23 mg/dL; LDL Cholesterol Calculated 37 mg/dl; Potassium 3.4 mmol/L (3.3-5.1); Sodium 141 mmol/L (135-145); Total Protein 7.3 g/dL (6.5-8.0); Triglycerides 72 mg/dL
[2022-06-24 11:59] LABS: TSH reflex Free T4 1.33 uIU/mL (0.32-4.0)
[2022-06-24 12:46] LABS: Insulin 12 uU/mL (2-29)
[2022-06-24 13:02] VITALS: BMI 41.9
--- NOTE | 2022-06-27 23:21 | MHC.SHP ---
Pre-Procedural Eval Section A Date of Service: 06/27/22 The patient is an INPATIENT: Yes The History & Physical has been completed within 30 days and I have reviewed it.: Yes Section B Chief Complaint: obesity Relevant Family History (Specify if Yes): No Relevant Social History: None Present Medications: None Medical History: No relevant PMH History of Previous Operations: No relevant previous surgery Allergies: Allergies Allergy/AdvReac Type Severity Reaction Status Date / Time No Known Allergies Allergy Verified 06/24/22 13:00 Review of Systems Sugical H&P ROS: Negative: Constitution, Cardiovascular, Respiratory, Neurological, Psychiatric, Hem-Onc, Allergic/Immunologic, Gastrointestinal, Genitourinary, Musculoskeletal, Integumentary, Endocrine and Eyes/Ears/Nose/Throat Exam Surgical H&P Exam: Normal: HEENT, Normal: Heart, Normal: Lungs, Normal: Extremities, Normal: Abdomen, Normal: Skin and Normal: Neurological Plan Diagnosis/Plan: Unchanged I have reviewed the history and physical and performed a pertinent physical examination on my patient. No changes have occurred unless specified. Time Spent With Patient Time: Total time managing care of this patient today ____ minutes.
--- NOTE | 2022-07-01 09:25 | P.CONAN_ITS ---
Documented by User: Lety Mosquera NP 07/01/22 09:27 HPI - Anesthesia Eval Consult details Narrative: 62yo M for Gastrectomy Sleeve,EGD,Possible diaphragmatic hernia,possible ventral hernia,possible open PMFSH Active Problems Active Problems: All Active Problems (Updated 04/30/22 @ 17:31 by Bigg Alvarado MD) Inferior myocardial infarction (Acute) Vitamin B12 deficiency (Acute) Binge-eating disorder, in partial remission, mild (Acute) DJD (degenerative joint disease) (Acute) Sleep apnea with use of continuous positive airway pressure (CPAP) (Acute) Morbid obesity (Acute) Obesity (Acute) Goiter (Acute) Hypogonadism male (Acute) Vitamin D deficiency (Acute) HLD (hyperlipidemia) (Acute) HTN (hypertension) (Acute) T2DM (type 2 diabetes mellitus) (Acute) Past Medical History Medical History (Updated 07/02/22 @ 10:21 by Bigg Alvarado MD) DJD (degenerative joint disease) Goiter HLD (hyperlipidemia) HTN (hypertension) Hypogonadism male Morbid obesity Obesity Sleep apnea with use of continuous positive airway pressure (CPAP) T2DM (type 2 diabetes mellitus) Vitamin D deficiency Family History Family History Father Coronary artery disease Hypertension Mother Coronary artery disease Hypertension Stroke Brother Cancer Surgical History Surgical History (Updated 07/02/22 @ 10:18 by Cherise Edwards PA-C) H/O arthroscopy of left knee Hx of appendectomy Social History Social History (Updated 06/24/22 @ 13:58 by Shama Leon RN) Household Members: Family Housing: House Are you a primary small animal caretaker to a significant other at home: No Do you presently have visiting nurse or other home services: No Alcohol intake: current Alcohol intake frequency: holidays/special occasions only Alcohol type: wine Patient Tobacco Use Status: Never used Tobacco Use of substances other than those prescribed or required for medical reasons: No Currently Displaying Signs/Symptoms of Drug Intoxication Withdrawal: No Have you been hit, kicked, punched, or otherwise hurt by someone within the past year? If so, by whom?: No Do you feel safe in your current relationship?: Yes Is there a partner from a previous relationship who is making you feel unsafe no w?: No Are you made to feel afraid or neglected: No Are you DNR?: No Advance Directives: No Advance Directives Information Provided: Yes Advance Directives on File: No Do you have thoughts of harming others: None Do you have a plan to hurt others: No Plan Recently lost weight without trying: No Nutrition Risks: No Nutritional Risk Poor oral hygiene: No Meds Allergies Allergy/AdvReac Type Severity Reaction Status Date / Time No Known Allergies Allergy Verified 07/02/22 06:16 Home Medications Medication Instructions Recorded Confirmed Last Taken Type amlodipine 10 mg tablet 10 mg PO DAILY 09/27/20 07/02/22 07/02/22 04:30 History aspirin 81 mg tablet,delayed 81 mg PO DAILY 09/27/20 07/02/22 06/18/22 History release blood pressure test kit-large #1 ea 09/27/20 07/02/22 Unknown History metoprolol succinate 100 mg 100 mg PO DAILY 09/27/20 07/02/22 07/02/22 04:30 History tablet,extended release 24 hr syringe with needle 3 mL 22 gauge #1 ea 09/27/20 07/02/22 Unknown History x 1 syringe with needle 3 mL 25 gauge #1 ea 09/27/20 07/02/22 Unknown History x 1 testosterone cypionate 200 mg/mL 80 mg IM QWEEK 09/27/20 07/02/22 06/18/22 History intramuscular oil tramadol 50 mg tablet 50 mg PO Q8H PRN Pain 09/27/20 07/02/22 07/01/22 History baclofen 10 mg tablet 10 mg PO DAILY PRN Pain 02/18/22 07/02/22 06/18/22 History cetirizine 10 mg tablet 10 mg PO DAILY PRN Allergy Symptoms 02/18/22 07/02/22 05/04/22 History diclofenac sodium 75 mg 75 mg PO BID PRN pain 02/18/22 07/02/22 06/18/22 History tablet,delayed release hydrochlorothiazide 25 mg tablet 25 mg PO DAILY 02/18/22 07/02/22 07/01/22 History lisinopril 40 mg tablet 40 mg PO DAILY 02/18/22 07/02/22 07/02/22 04:30 History dulaglutide 1.5 mg/0.5 mL 1.5 mg subcut Q7D 07/02/22 07/02/22 Unknown History subcutaneous pen injector (Trulicity) metformin 500 mg tablet 2 tab BID 07/02/22 07/02/22 Unknown History ondansetron HCl 4 mg tablet 1 tab PO Q12H PRN nausea/vomiting 07/02/22 07/02/22 Unknown History Exam Exam Date and Time: July 01, 2022 0925 Height,Weight and Vital Signs: Height 5 ft 6 in Weight 117.934 kg Pertinent Lab Results Pertinent Lab Results: Laboratory Tests 06/24/22 06/24/22 06/24/22 09:35 09:35 09:35 WBC 7.4 RBC 4.90 Hgb 15.6 Hct 45.0 MCV 91.8 MCH 31.8 MCHC 34.7 RDW 12.5 Plt Count 210 MPV 9.9 Immature Gran % (Auto) 0.3 Neut % (Auto) 65.9 Lymph % (Auto) 23.8 [place] % (Auto) 6.4 Eos % (Auto) 3.3 Baso % (Auto) 0.3 Lymph # (Auto) 1.8 [place] # (Auto) 0.5 Eos # (Auto) 0.2 Baso # (Auto) 0.0 Abs Immat Gran (auto) 0.02 Absolute Neuts (auto) 4.9 Absolute Nucleated RBC 0.000 Nucleated RBC % (auto) 0.0 PT 12.9 INR 1.1 APTT 30.3 Sodium 141 Potassium 3.4 Chloride 103 Carbon Dioxide 29 Anion Gap 12 BUN 20 H Creatinine 0.94 Estim Creat Clear Calc TNP Estimated GFR > 60 Random Glucose 99 Estimat Average Glucose Hemoglobin A1c % Insulin Level 12 Calcium 8.9 Total Bilirubin 1.2 H AST 30 ALT 42 H Alkaline Phosphatase 66 C-Reactive Protein 1.62 H Total Protein 7.3 Albumin 4.1 Triglycerides 72 Cholesterol 74 LDL Cholesterol, Calc 37 HDL Cholesterol 23 TSH 1.33 Blood Type Antibody Screen 06/24/22 06/24/22 09:35 09:35 WBC RBC Hgb Hct MCV MCH MCHC RDW Plt Count MPV Immature Gran % (Auto) Neut % (Auto) Lymph % (Auto) [place] % (Auto) Eos % (Auto) Baso % (Auto) Lymph # (Auto) [place] # (Auto) Eos # (Auto) Baso # (Auto) Abs Immat Gran (auto) Absolute Neuts (auto) Absolute Nucleated RBC Nucleated RBC % (auto) PT INR APTT Sodium Potassium Chloride Carbon Dioxide Anion Gap BUN Creatinine Estim Creat Clear Calc Estimated GFR Random Glucose Estimat Average Glucose 114 Hemoglobin A1c % 5.6 Insulin Level Calcium Total Bilirubin AST ALT Alkaline Phosphatase C-Reactive Protein Total Protein Albumin Triglycerides Cholesterol LDL Cholesterol, Calc HDL Cholesterol TSH Blood Type A Positive Antibody Screen NEGATIVE Narrative Narrative: EKG 04/2022 Vent. Rate : 085 BPM ? ? Atrial Rate : 085 BPM ?? P-R Int : 178 ms? QRS Dur : 100 ms ? ? QT Int : 388 ms ? ? ? P-R-T Axes : 052 -22 018 degrees ?? QTc Int : 461 ms ? Normal sinus rhythm Minimal voltage criteria for LVH, may be normal variant ( R in aVL ) Inferior infarct , age undetermined Abnormal ECG When compared with ECG of 14-SEP-2013 15:03, inferior infarct present ECHO 04/2022 Conclusions: - The left ventricular systolic function is normal.? The visually estimated ejection fraction is between 55-60%. ? - No obvious valvular pathology seen on this study.? - There is mild dilatation of the ascending aorta measuring 3.90 cm.? ?? NM manisha perf SPECT rest & str 04/2022 Impression: ? 1.? Myocardial perfusion imaging study shows no clear evidence of any ischemia or infarction. Probably normal perfusion. 2.? Gated LVEF is 60% during stress and 51% during rest. 3. Transient ischemic dilatation not present. ? EKG component of the test reported separately. Assessment and Plan Assessment Anesthesia Assessment: Chart Reviewed Documented by User: Gordo Diaz MD 07/02/22 16:23 HPI - Anesthesia Eval Consult details Narrative: 62yo M for Gastrectomy Sleeve,EGD,Possible diaphragmatic hernia,possible ventral hernia,possible open functional status greater than 4 mets [facility] Past Medical History Medical History (Updated 07/02/22 @ 10:21 by Bigg Alvarado MD) DJD (degenerative joint disease) Goiter HLD (hyperlipidemia) HTN (hypertension) Hypogonadism male Morbid obesity Obesity Sleep apnea with use of continuous positive airway pressure (CPAP) T2DM (type 2 diabetes mellitus) Vitamin D deficiency Functional capacity: independent ambulation Family History Family History Father Coronary artery disease Hypertension Mother Coronary artery disease Hypertension Stroke Brother Cancer Family history of problems with anesthesia: No Surgical History Surgical History (Updated 07/02/22 @ 10:18 by Cherise Edwards PA-C) H/O arthroscopy of left knee Hx of appendectomy History of Problems with Anesthesia: No Social History Social History (Updated 06/24/22 @ 13:58 by Shama Leon RN) Household Members: Family Housing: House Are you a primary small animal caretaker to a significant other at home: No Do you presently have visiting nurse or other home services: No Alcohol intake: current Alcohol intake frequency: holidays/special occasions only Alcohol type: wine Patient Tobacco Use Status: Never used Tobacco Use of substances other than those prescribed or required for medical reasons: No Currently Displaying Signs/Symptoms of Drug Intoxication Withdrawal: No Have you been hit, kicked, punched, or otherwise hurt by someone within the past year? If so, by whom?: No Do you feel safe in your current relationship?: Yes Is there a partner from a previous relationship who is making you feel unsafe now?: No Are you made to feel afraid or neglected: No Are you DNR?: No Advance Directives: No Advance Directives Information Provided: Yes Advance Directives on File: No Do you have thoughts of harming others: None Do you have a plan to hurt others: No Plan Recently lost weight without trying: No Nutrition Risks: No Nutritional Risk Poor oral hygiene: No Meds Allergies Allergy/AdvReac Type Severity Reaction Status Date / Time No Known Allergies Allergy Verified 07/02/22 06:16 Home Medications Medication Instructions Recorded Confirmed Last Taken Type amlodipine 10 mg tablet 10 mg PO DAILY 09/27/20 07/02/22 07/02/22 04:30 History aspirin 81 mg tablet,delayed 81 mg PO DAILY 09/27/20 07/02/22 06/18/22 History release blood pressure test kit-large #1 ea 09/27/20 07/02/22 Unknown History metoprolol succinate 100 mg 100 mg PO DAILY 09/27/20 07/02/22 07/02/22 04:30 History tablet,extended release 24 hr syringe with needle 3 mL 22 gauge #1 ea 09/27/20 07/02/22 Unknown History x 1 syringe with needle 3 mL 25 gauge #1 ea 09/27/20 07/02/22 Unknown History x 1 testosterone cypionate 200 mg/mL 80 mg IM QWEEK 09/27/20 07/02/22 06/18/22 History intramuscular oil tramadol 50 mg tablet 50 mg PO Q8H PRN Pain 09/27/20 07/02/22 07/01/22 History baclofen 10 mg tablet 10 mg PO DAILY PRN Pain 02/18/22 07/02/22 06/18/22 History cetirizine 10 mg tablet 10 mg PO DAILY PRN Allergy Symptoms 02/18/22 07/02/22 05/04/22 History diclofenac sodium 75 mg 75 mg PO BID PRN pain 02/18/22 07/02/22 06/18/22 History tablet,delayed release hydrochlorothiazide 25 mg tablet 25 mg PO DAILY 02/18/22 07/02/22 07/01/22 History lisinopril 40 mg tablet 40 mg PO DAILY 02/18/22 07/02/22 07/02/22 04:30 History dulaglutide 1.5 mg/0.5 mL 1.5 mg subcut Q7D 07/02/22 07/02/22 Unknown History subcutaneous pen injector (Trulicity) metformin 500 mg tablet 2 tab BID 07/02/22 07/02/22 Unknown History ondansetron HCl 4 mg tablet 1 tab PO Q12H PRN nausea/vomiting 07/02/22 07/02/22 Unknown History Exam Airway Mallampati Class: III TM Dist: >3cm Neck ROM: Full Loose/Missing/Broken Teeth: Yes (Chipped left upper , poor dentition overall ) Heart: S1,S2 Lungs: distant breath sounds Assessment and Plan Final Anesthetic Review Family History of Problems with Anesthesia: No History of Problems with Anesthesia: No NPO: Yes ASA Class: III Final Preanesthetic Review: Meds/Allgs Chart Reviewed, Consent Obtained/Reviewed and Anes Risks/Benef Reviewed Patient Risk: Intermediate Procedure Risk: Intermediate Anesthetic Plan Anesthetic Plan: GA and Agree w/ Assess. and Plan Disposition: Standard PACU and Inp. Admit - Standard Bed
[2022-07-01 13:39] LABS: COVID-19 Test Negative (Negative); IDNOW Serial# 08D9AD1C
[2022-07-02] VITALS (18 sets, daily range): BP systolic 132–183; BP diastolic 63–94; PULSE 75–97; RESP 13–20; TEMP 36.5–37.4; O2SAT 93–99
[2022-07-02 06:26] LABS: Glucose, Whole Blood 101 mg/dL (60-115)
[2022-07-02] MEDS: Lactated Ringers 1,000 ML 100 ML IVCONT ×3 (06:52→23:16)
[2022-07-02] MEDS: Lactated Ringers 1,000 ML 999 ML IV (06:53)
--- NOTE | 2022-07-02 07:37 | PM.OP ---
Brief Operative Note Date of Service: 07/02/22 Pre-op diagnosis: Morbid obesity with comorbidities (see below) Post-op diagnosis: same Procedure: INITIAL PATIENT BMI ON PRESENTATION AT OUR OFFICE: 47.3 kg/m2 LAST BMI BEFORE SURGERY: 42.5 kg/m2 COMORBIDITIES: sleep apnea on CPAP, hyperlipidemia, non-insulin dependent diabetes, hypertension, DJD, liver steatosis, liver fibrosis, aortic dilation ?The patient presented to the Weight Management Program with significant obesity that was negatively impacting the patient's comorbidities as listed above.? The program is a phased program with a special focus on preoperative medical weight management to promote substantial weight loss and prepare the patients for the second phase of the program: bariatric surgery. The patient participated in an intensive weekly lifestyle ?intervention and exercise program during which the patient ?has lost between the initial office visit and the last preoperative visit 31.6lbs, or 10.79% of initial actual body weight. It was deemed appropriate for the patient to now have bariatric surgery. In light of the current Covid-19 pandemic and the well documented strong association of obesity and increased risk of worse outcomes if infected with Covid-19 (REFERENCES:https://pubmed.ncbi.nlm.nih.gov/24311415/,?https://pubmed.ncbi.nlm.nih.gov/39563033/), any delay in undergoing bariatric surgery may lead to the patient's worsening health condition and increased?risk of more severe Covid-19 disease if infected. In addition a recent?study from [facility] published in [facility] on 04/09/2021 ([email or web address]) found that, among patients with obesity, substantial weight loss achieved with surgery was associated with improved outcomes of COVID-19 infection. The findings suggest that obesity can be a modifiable risk factor for the severity of COVID-19 infection. In addition, the patient met the BMI-criteria for bariatric surgery based on the BMI on initial presentation. The patient should not be penalized for achieving such weight loss because ?it is not sustainable long-term without surgical intervention and it was achieved in preparation for bariatric surgery ?under my direction and based on my published research ([email or web address] and?[email or web address].soard.org/article/[email or web address])27799-X/pdf) ?that a 10% preoperative weight loss improves long-term weight loss after surgery and reduces perioperative complications.? Insurance carriers such as [facility] have endorsed my recommendations ?and have included in their policies criteria to include a 10% preoperative weight loss requirement. PROCEDURE: Esophago-gastroscopy, laparoscopic repair of incarcerated diaphragmatic hernia, laparoscopic lysis of adhesions, laparoscopic sleeve gastrectomy and laparoscopic gastropexy INDICATIONS: This is a 62 year-old male who was electively scheduled for laparoscopic, possibly open sleeve gastrectomy. The risks and complications of the procedure were discussed with the patient in advance, particularly the possibility of ; pulmonary embolism; staple line leak; bleeding; GERD; cardiac, pulmonary, or renal complications; as well as long-term problems such as insufficient weight loss, vitamin deficiency, strictures, or ulcers. The patient understood all the risks, and was in agreement to proceed with surgery. DESCRIPTION OF PROCEDURE: After informed consent was obtained from the patient, the patient was given preoperative antibiotics, and was transferred to the operating room. After successful induction of general anesthesia, pneumatic compression devices were placed on both lower extremities. An upper endoscopy was performed next. The oropharynx and esophagus appeared to be within normal limits. There was a diaphragmatic hernia present of moderate size consistent with the findings of the preoperative upper GI. The stomach was entered. Then after all fluid and air were suctioned and the stomach was fully decompressed, the scope was withdrawn and secured in the mid esophagus. The patient was then prepped and draped in the usual sterile manner, and abdominal access was established at the right upper quadrant with the Lilian technique. A 12 mm blunt port was inserted, and the abdomen was insufflated with CO2 to a pressure of 15 mmHg. Under direct visualization, additional ports were placed, specifically two 5 mm Versi-step ports to the left upper quadrant, and a 5 mm Versi-Step port to the right upper quadrant. 1% lidocaine plain was used to infiltrate all port sites as well as all fascia defects. Following that, the patient was placed in a steep reverse Trendelenburg position. An additional 5 mm port was placed to the right flank for the Mediflex retractor that was used to retract the left lobe of the liver. The gastro-esophageal fat pad was opened with the ultrasonic device (Thunderbeat, Olympus) and the anterior esophagus and hiatus were exposed. The angle of His was opened with the ultrasonic device the fundus of the stomach from any diaphragmatic and splenic attachments. I then opened the gastrocolic ligament between the transverse colon and the greater curvature of the stomach with the ultrasonic device to enter the lesser sac and facilitate the ligation of the short gastric vessels. I started at a mid-point along the greater curvature and using the Thunderbeat, all short gastric vessels were divided all the way to the angle of His until the left oxana was completely dissected at its entirety. I then divided the gastro-colic ligament distally to a distance of about 3-4 cm proximal to the pylorus. The stomach was then divided transversely with one Endo SAMUEL-45 purple, one SAMUEL-45 orange loads and four SAMUEL-60 articulating orange loads using the AEON stapler and loads. Every effort was made that the gastric sleeve had a tubular shape and an even caliber throughout. Once the sleeve resection was completed, the staple line of the gastric sleeve was reinforced with Hemoclips. The resected stomach was retrieved without difficulty from the Lilian port. A gastropexy was then performed in order to prevent postoperative GERD and partial gastric volvulus. Several interrupted 2.0 Surgidac sutures were placed between the sleeve's staple line and the previously divided greater omentum and gastro-colic ligament using the Endo-Stitch device. ?An upper endoscopy was performed. There was no narrowing at the GE junction. The scope was easily advanced all the way to the pylorus which was clearly visualized. There was no narrowing anywhere and the sleeve's caliber was even throughout. The sleeve's staple line was inspected and there was no evidence of ischemia, bleeding or dehiscence. At that point the gastroscope was withdrawn from the patient?s mouth while we were decompressing the bowel and the stomach from any remaining air. I looked into the lesser sac to see how the sleeve was situating and it was situating well. There was no bleeding from the staple line, spleen, or short gastric vessels. The Mediflex retractor was removed, and the undersurface of the liver was inspected and there was no bleeding. The patient was placed in supine position. I closed the fascial defect of the 12 mm port site with a figure of eight #1 Polysorb suture. Then 30cc Ropivacaine plain with 10 mg of Dexamethasone were used to infiltrate the fascial closure as well as all skin incisions. A total of 4ml Zynrelef was applied in the Lilian wound. At this point, the abdomen was deflated, all ports were removed under direct vision, and no bleeding was noted from any of the port sites. The skin incisions were irrigated with saline and were closed with 4-0 absorbable monofilament sutures. Steri-Strips and OpSites were used to cover all incisions. The patient was extubated and was transferred in stable condition to the recovery room for further care. I was present and performed all sheppard parts of the procedure. Jerry was the first sampler. There were no residents to assist with this case. Dmitriy Alvarado MD, PhD, FACS Surgeon: Bigg Alvarado MD Anesthesia: GETA, local and other (TAP block and 4ml Zynrelef) Was an Gold Layer used for this Procedure?: No Gold Layer: Cherise Edwards Estimated blood loss (mL): 10 IV fluids (mL): 2,500 Urine output (mL): 0 (No García to record output) Pathology: other (Stomach) Condition: stable Disposition: PACU
--- NOTE | 2022-07-02 07:42 | PM.PNGS ---
Subjective Subjective Date of Service: 07/03/22 Interval history: Feels well. Mild incisional pain. He is tolerating phase 1 bariatric diet Physical Exam Vital Signs: Vital Signs: Last Vital Signs Temp 98.0 F 07/02/22 06:24 Pulse 75 07/02/22 06:24 Resp 16 07/02/22 06:24 BP 142/76 H 07/02/22 06:24 Pulse Ox 97 07/02/22 06:24 O2 Del Method 07/02/22 06:24 BMI result Body Mass Index 41.9 GI: Inspection: Yes normal to inspection, Yes incision (clean, dry and intact) and Yes obesity Palpation (GI): Soft to palpation Extrem: Right lower extremity: normal to inspection (no calf tenderness) Left lower extremity: normal to inspection (no calf tenderness) Objective Data Active Medications Lactated Ringer's (Lr) 1,000 mls @ 100 mls/hr IVCONT .Q10H STEFFANY Last Admin: 07/02/22 06:52 Dose: 100 mls/hr Documented By: JOSÉ LUIS Lactated Ringer's (Lr) 1,000 mls @ 999 mls/hr IV .Q1H1M STEFFANY Stop: 07/02/22 08:15 Last Admin: 07/02/22 06:53 Dose: 999 mls/hr Documented By: JOSÉ LUIS Labs 06/24/22 09:35 06/24/22 09:35 Labs: Laboratory Results - last 24 hr 07/01/22 07/02/22 13:20 06:23 POC Glucose 101 COVID-19 (ZACH) Negative COVID-19 Clin Com See Note Procedures Date of Service Date of Service: 07/03/22 Progress Note: A&P Assessment and plan (1) Morbid obesity: Status: Acute Assessment and Plan: s/p laparoscopic sleeve gastrectomy and gastropexy Doing well Will check am labs and if OK the patient will be discharged home (2) HLD (hyperlipidemia): Status: Acute (3) HTN (hypertension): Status: Acute (4) T2DM (type 2 diabetes mellitus): Status: Acute (5) Sleep apnea with use of continuous positive airway pressure (CPAP): Status: Acute (6) DJD (degenerative joint disease): Status: Acute (7) Steatosis, liver: Status: Acute (8) Liver fibrosis: Status: Acute (9) Aortic dilatation: Status: Acute (10) S/P laparoscopic sleeve gastrectomy: Status: Acute (11) Hepatomegaly: Status: Acute Time Spent With Patient Time: Total time managing care of this patient today ____ minutes. Quality Stroke Does the patient have a stroke diagnosis?: No VTE Prior VTE?: No VTE Risk Level:: Surgical - moderate VTE Device Contraindication: N/A - Device Ordered VTE Drug Contraindication: Treatment Not Indicated
--- NOTE | 2022-07-02 10:21 | P.DS_ITS ---
DS: Providers Provider Date of Service: 07/03/22 Primary care physician: Christopher Krishnan MD DS: Diagnosis Discharge Diagnosis (1) Morbid obesity: Status: Acute (2) HLD (hyperlipidemia): Status: Acute (3) HTN (hypertension): Status: Acute (4) T2DM (type 2 diabetes mellitus): Status: Acute (5) Sleep apnea with use of continuous positive airway pressure (CPAP): Status: Acute (6) DJD (degenerative joint disease): Status: Acute (7) Steatosis, liver: Status: Acute (8) Liver fibrosis: Status: Acute (9) Aortic dilatation: Status: Acute (10) S/P laparoscopic sleeve gastrectomy: Status: Acute (11) Hepatomegaly: Status: Acute DS: Summary Hospital Course Hospital Course: ADMITTING DIAGNOSIS: morbid obesity, DM, HTN, HLD, VERONICA DISCHARGE DIAGNOSIS: same, s/p laparoscopic sleeve gastrectomy PAST SURGICAL HISTORY: appendectomy PROCEDURE: upper endoscopy, laparoscopic sleeve gastrectomy DISCHARGE SUMMARY: History of Present Illness: The patient is a 62 year-old man with a BMI of 47.2 kg/m2 and associated co- morbidities as described above. The patient had extensive work-up, lost 22.8 lbs preoperatively and was electively scheduled for laparoscopic, possible open sleeve gastrectomy and gastropexy. Risks and complications of the surgery were discussed with the patient in advance, particularly the possibility of , pulmonary embolism, anastomotic leak, bleeding, bowel injury, GERD, cardiac, renal or pulmonary complications. The patient understood all the risks and was in agreement with the surgical plan. Hospital Course: The patient underwent an uneventful laparoscopic sleeve gastrectomy with gastropexy on the day of admission. Postoperatively, the patient was transferred to the surgical floor. The patient received IV Acetaminophen and IV dilaudid for pain control. Patient was started on bariatric phase 1 diet POD #0. On postoperative day one, the patient was feeling well without nausea, vomiting, fevers, or tachycardia. The patient had some mild incisional pain and the abdomen was soft. On the morning of postoperative day one, the patient was continued on 1 ounce of water or ice every half hour. During the day, the patient did fairly well, having some incisional pain, but able to ambulate adequately and to tolerate liquids well. Since the patient is doing well, we decided that the patient was ready to be discharged. The patient was given instructions to follow-up with me next week and to call my office for any fever over 101, persistent abdominal pain, nausea, vomiting, GERD, symptoms of DVT such as calf tenderness, or leg swelling, or pulmonary embolism such as chest pain or shortness of breath. The patient was also instructed to drink 40-60 ounces of liquids per day using the 1-ounce cups. The patient had been given prescriptions for Tylenol for pain, Zofran prn for nausea, and pantoprazole and carafate previously. The patient was encouraged to ambulate and use the incentive spirometer. The patient was allowed to shower, but no baths, and encouraged to stay active at home. All of these instructions were given to the patient personally. All questions were answered and the patient understood all instructions, the instructions were also given to the patient in print. Time Spent with Patient Time attestation: Total time managing care of this patient today ____ minutes. Discharge coordination time: Less than 30 minutes Quality: Safe Use of Opioids Does Pt have an Active Cancer Diagnosis on the Problem List?: No Quality: Stroke Does the patient have a stroke diagnosis?: No Physical Exam Vital Signs: Vital Signs: Last Vital Signs Temp 98.0 F 07/02/22 06:24 Pulse 75 07/02/22 06:24 Resp 16 07/02/22 06:24 BP 142/76 H 07/02/22 06:24 Pulse Ox 97 07/02/22 06:24 O2 Del Method 07/02/22 06:24 BMI result Body Mass Index 41.9 DS: Data Data Completed and Pending Pending studies at discharge: Pending at discharge 07/02/22 09:33 Surgical [PTH] Routine Labs on day of discharge: Laboratory Results - last 24 hr 07/01/22 07/02/22 13:20 06:23 POC Glucose 101 COVID-19 ([facility]) Negative COVID-19 Clin Com See Note Discharge Plan Discharge Anticipated Discharge Date/Time: 07/03/22 08:14 Patient Disposition: Home, Self-Care Discharge Diagnosis: Morbid obesity Referrals: Christopher Boogie MD [Primary Care Provider] - 1 Week Discharge Medications: Continued docusate sodium [Colace] 100 mg capsule 100 mg PO DAILY Qty: 30 2RF ondansetron HCl 4 mg tablet 1 tab PO Q12H PRN (Reason: nausea/vomiting) (DME) blood pressure test kit-large Kit See Rx Instructions .ROUTE DIRECTED Qty: 1 Rx Instructions: As directed (DME) syringe with needle 3 mL 25 gauge x 1 syringe See Rx Instructions .ROUTE QWEEK Qty: 1 Rx Instructions: As directed (DME) syringe with needle 3 mL 22 gauge x 1 syringe See Rx Instructions .ROUTE QWEEK Qty: 1 Rx Instructions: As directed weekly for testosterone administration tramadol 50 mg tablet 50 mg PO Q8H PRN (Reason: Pain) atorvastatin 40 mg tablet 40 mg PO DAILY 30 Days Qty: 30 11RF pantoprazole 40 mg tablet,delayed release (DR/EC) 40 mg PO DAILY Qty: 30 2RF sucralfate 100 mg/mL suspension 10 ml PO BID Qty: 400 2RF cetirizine 10 mg tablet 10 mg PO DAILY PRN (Reason: Allergy Symptoms) Held amlodipine 10 mg tablet 10 mg PO DAILY Hold Instructions: Resume on 07/04/22. Check your blood pressure every evening and send it to Dr. Alvarado. Do not take the medication before you hear from Dr. Alvarado. Do not take the medication if your blood pressure is below 120/70 mmHg. testosterone cypionate 200 mg/mL oil 80 mg IM QWEEK Hold Instructions: Resume on 08/01/22. metoprolol succinate 100 mg tablet extended release 24 hr 100 mg PO DAILY Hold Instructions: Resume on 07/04/22. Check your blood pressure every evening and send it to Dr. Alvarado. Do not take the medication before you hear from Dr. Alvarado. Do not take the medication if your blood pressure is below 120/70 mmHg. hydrochlorothiazide 25 mg tablet 25 mg PO DAILY Hold Instructions: Resume on 07/04/22. Check your blood pressure every evening and send it to Dr. Alvarado. Do not take the medication before you hear from Dr. Alvarado. Do not take the medication if your blood pressure is below 120/70 mmHg. lisinopril 40 mg tablet 40 mg PO DAILY Hold Instructions: Resume on 07/04/22. Check your blood pressure every evening and send it to Dr. Alvarado. Do not take the medication before you hear from Dr. Alvarado. Do not take the medication if your blood pressure is below 120/70 mmHg. Discontinued cholecalciferol (vitamin D3) 125 mcg (5,000 unit) capsule 125 mcg PO DAILY Qty: 30 2RF cyanocobalamin (vitamin B-12) 500 mcg tablet 500 mcg PO DAILY Qty: 30 2RF folic acid 400 mcg tablet 400 mcg PO DAILY Qty: 30 2RF metformin 500 mg tablet 2 tab BID Trulicity 1.5 mg/0.5 mL pen injector 1.5 mg subcut Q7D aspirin 81 mg tablet,delayed release (DR/EC) 81 mg PO DAILY baclofen 10 mg tablet 10 mg PO DAILY PRN (Reason: Pain) diclofenac sodium 75 mg tablet,delayed release (DR/EC) 75 mg PO BID PRN (Reason: pain) Discharge Orders: Discharge Order (Routine); Ordered 07/03/22 Ordered By: Bigg Alvarado Activity on Discharge: No heavy lifting Care Plan Goals: weight loss Health Concerns: none Plan of Treatment: Discharge home Assessment: seen and examined. Ready for discharge Discharge Date/Time: 07/03/22 10:26
[2022-07-02] MEDS: HYDROmorphone HCl 0.5 MG/0.5 ML SYRINGE 0.25 MG IVPUSH ×4 (10:39→11:49)
[2022-07-02 10:42] LABS: Hemoglobin 15.2 g/dl (14.0-18.0)
[2022-07-02] MEDS: Famotidine/PF 20 MG/2 ML VIAL IVPUSH ×2 (10:59→20:56)
[2022-07-02 11:09] LABS: Anion Gap 17 (12-20); Blood Urea Nitrogen 18 mg/dL (9-16); Calcium 8.7 mg/dL (8.4-10.2); Carbon Dioxide 25 mmol/L (22-29); Chloride 102 mmol/L (96-108); Creatinine Clr Calc Pharmacy 91.2; Estimated Glomerular Filt Rate > 60; Glucose Random 158 mg/dL (60-115); Potassium 3.5 mmol/L (3.3-5.1); Sodium 140 mmol/L (135-145)
[2022-07-02] MEDS: Metoclopramide HCl 10 MG/2 ML VIAL IVPUSH (11:50)
[2022-07-02] MEDS: ceFAZolin Sodium/Dextrose,Iso 2 GM/50 ML PIGGYBACK IV (13:46)
[2022-07-02] MEDS: Acetaminophen 1,000 MG/100 ML PIGGYBACK 16.7 MG IV ×2 (14:44→20:55)
[2022-07-02] MEDS: ondansetron HCL 4 MG/2 ML VIAL IVPUSH ×2 (15:47→23:18)
[2022-07-03] MEDS: Acetaminophen 1,000 MG/100 ML PIGGYBACK 16.7 MG IV (02:21)
[2022-07-03 03:40] VITALS: BP 141/69; PULSE 73; RESP 17; TEMP 36.6; O2SAT 95
[2022-07-03 06:12] LABS: MANUAL DIFF FLAG NO
[2022-07-03 06:26] LABS: Basophils Percent Auto 0.1 % (0-2); Hematocrit 40.1 % (42.0-52.0); Hemoglobin 13.8 g/dl (14.0-18.0); Imm Gran Abs Auto 0.02 X10*3/uL (0.00-0.03); Imm Gran Pct Auto 0.3 % (0.0-0.4); Lymphocytes Absolute Auto 1.4 X10*3/uL (1.2-4.9); Lymphocytes Percent Auto 17.9 % (20-40); Mean Corpuscular HGB Conc 34.4 g/dl (31.0-36.0); Mean Corpuscular Hemoglobin 31.9 pg (27.0-33.0); Mean Corpuscular Volume 92.8 fL (80.0-98.0); Mean Platelet Volume 10.1 fL (9.4-12.4); Monocytes Absolute Auto 0.6 X10*3/uL (0.1-1.2); Neutrophils Absolute Auto 5.9 x10*3/uL (2.0-8.3); Neutrophils Percent Auto 74.7 % (45-73); Platelet Count 168 X10*3/uL (160-400); Red Blood Count 4.32 X10*6/uL (4.60-5.80); Red Cell Distribution Width 12.6 % (11.0-16.0); White Blood Count 7.9 X10*3/uL (4.8-10.8)
[2022-07-03] MEDS: lisinopriL 40 MG TABLET PO (06:28)
[2022-07-03] MEDS: ondansetron HCL 4 MG/2 ML VIAL IVPUSH (06:29)
[2022-07-03 06:58] LABS: Anion Gap 13 (12-20); Blood Urea Nitrogen 13 mg/dL (9-16); Calcium 8.4 mg/dL (8.4-10.2); Carbon Dioxide 25 mmol/L (22-29); Chloride 108 mmol/L (96-108); Estimated Glomerular Filt Rate > 60; Glucose Random 111 mg/dL (60-115); Potassium 3.8 mmol/L (3.3-5.1); Sodium 142 mmol/L (135-145)
[2022-07-03] MEDS: Famotidine/PF 20 MG/2 ML VIAL IVPUSH (07:05)
[2022-07-03 07:25] LABS: Glucose, Whole Blood 110 mg/dL (60-115)
--- NOTE | 2022-07-03 07:40 | HO.POSTANES ---
Post Anesthesia Evaluation Post Anesthesia Evaluation Vital Signs: Vital Signs Temp Pulse Resp BP Pulse Ox O2 Del Method 07/03/22 03:40 97.8 F 73 17 141/69 H 95 Room Air 07/02/22 23:38 97.7 F 76 17 132/63 93 Room Air 07/02/22 20:00 99.4 F 97 20 148/75 H 95 Room Air Anesthesia: General Endotracheal-GETA Mental Status: Awake Pain Control: Satisfactory Nausea/Vomiting: None Hydration: Adequate Anesthesia-Related Issues: No Anes. Related Issues
[2022-07-03 07:42] VITALS: BP 145/70; PULSE 75; RESP 16; TEMP 36.7; O2SAT 94
--- NOTE | 2022-07-03 09:31 | MHC.CM.PN ---
pt dcd home no skilled servceis ordered by pt lives with and is independent is not covid vax has own ride home
== END 2022-07-03 10:26 | disposition home or self-care (01) | DRG 621 ==
LOC: HO.SSS 10:19 → HO.S3 14:38
PROVIDERS: Physician Assistant Surgical; Surgery; Admitting Provider Physician Assistant; PCP Internal Medicine; Visit Provider Physician Assistant
PROC: 0DB64Z3 Excision of Stomach, Percutaneous Endoscopic Approach, Vertical (ICD-10-PCS; CPT 43845; principal; 2022-07-02 07:30)
DX: E66.01 Morbid (severe) obesity due to excess calories (principal); E78.5 Hyperlipidemia, unspecified; G47.33 Obstructive sleep apnea (adult) (pediatric); E11.9 Type 2 diabetes mellitus without complications; M19.90 Unspecified osteoarthritis, unspecified site; K76.0 Fatty (change of) liver, not elsewhere classified; K74.00 Hepatic fibrosis, unspecified; I77.819 Aortic ectasia, unspecified site; Z68.41 Body mass index [BMI] 40.0-44.9, adult; Z20.822 Contact with and (suspected) exposure to COVID-19; Z79.899 Other long term (current) drug therapy
CPT/HCPCS: 36415; 80048; 80053; 80061; 82947; 83036; 83525; 84443; 85014; 85018; 85025; 85610; 85730; 86140; 86850; 86900; 86901; 87635; 88307; 88342; A4649; J0131; J0690; J1100; J1170; J2250; J2370; J2405; J2550; J2765; J3010

== ENCOUNTER → 2022-07-09 10:21 | Outpatient (BNVA) | payer MEDICARE, MEDICAID, SELFPAY | PROVIDERS: PCP Internal Medicine; Visit Provider Physician Assistant Surgical ==

== ENCOUNTER → 2022-07-25 11:12 | Outpatient (BNVA) | payer MEDICARE, MEDICAID, SELFPAY | PROVIDERS: PCP Internal Medicine; Visit Provider Physician Assistant ==

== ENCOUNTER → 2022-08-08 10:05 | Outpatient (BNVA) | payer MEDICARE, MEDICAID, SELFPAY | PROVIDERS: PCP Internal Medicine; Referring Provider Internal Medicine; Visit Provider Physician Assistant ==

== ENCOUNTER 2022-08-18 08:17 | Emergency (ER) | payer MEDICARE, MEDICAID, SELFPAY ==
--- NOTE | ~2022-08-18 | XR_ITS ---
EXAMINATION: XR LUMBOSACRAL SPINE CLINICAL INFORMATION: Left hip pain. Herniated disc. COMPARISON: None available. TECHNIQUE: AP and lateral views of the lumbar spine and lateral view of the lumbosacral junction. FINDINGS: Mild multilevel degenerative disc disease throughout the lumbar spine, characterized by loss of intervertebral disc height and endplate osteophytes. More moderate degenerative facet arthropathy is present in the lower lumbar spine, right side greater than left. 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 Vertebral body heights are normal. No fracture or spondylolisthesis. Mild osteoarthritis in the SI joints. Bone mineralization is normal. Cholecystectomy clips. No acute soft tissue findings. XR/XR lumbar spine 2-3V IMPRESSION: 1. Mild multilevel degenerative disc disease in the lumbar spine with more moderate degenerative facet arthropathy in the lower lumbar spine. 2. No acute fracture or malalignment.
[2022-08-18 08:22] VITALS: BP 171/77; PULSE 55; RESP 19; TEMP 36.6; O2SAT 98; BMI 35.9
--- NOTE | 2022-08-18 08:48 | ED_ITS ---
HPI - General Adult General Chief complaint: Extremity Injury, Lower Stated complaint: pain R upper hip area Time Seen by Provider: 08/18/22 08:36 Source: patient Mode of arrival: ambulatory Limitations: no limitations History of Present Illness HPI narrative: Patient is a 62-year-old male with history of DJD, HTN, sleeve gastrectomy 6 weeks ago, has had 70lb weight loss in the past 4 months, complaining of right lateral hip pain radiating to right lateral upper leg for the past 2 days. He reports that he awoke with pain on Friday morning and that throughout the day his pain decreased. He states that his pain worsens with movement but improves when stretching with his 's Pilates machine. We then using a cane which she had at home from a prior knee surgery. States he needs the cane in the morning but by the afternoon is able to ambulate independently without the cane. He has been using tramadol and Tylenol with little relief. He does report mild relief from warm baths. He denies any numbness or tingling to his leg, denies any new weakness. He does report a history of herniated lumbar disc which he believes is at the level of L4/L5. He denies any abdominal pain or urinary symptoms, denies any fevers. He denies any saddle anesthesia or bowel or bladder incontinence. He denies any falls, injury, or trauma. He denies any groin or scrotal pain. Related Data Home Medications Medication Instructions Recorded Confirmed blood pressure test kit-large #1 ea 09/27/20 08/08/22 metoprolol succinate 100 mg 100 mg PO DAILY 09/27/20 08/08/22 tablet,extended release 24 hr syringe with needle 3 mL 22 gauge #1 ea 09/27/20 08/08/22 x 1 syringe with needle 3 mL 25 gauge #1 ea 09/27/20 08/08/22 x 1 testosterone cypionate 200 mg/mL 80 mg IM QWEEK 09/27/20 08/08/22 intramuscular oil tramadol 50 mg tablet 50 mg PO Q8H PRN Pain 09/27/20 08/08/22 hydrochlorothiazide 12.5 mg capsule 25 mg PO DAILY 07/25/22 08/08/22 Previous Rx's Medication Instructions Recorded pantoprazole 40 mg tablet,delayed 40 mg PO DAILY #30 tabs 06/16/22 release sucralfate 100 mg/mL oral 10 ml PO BID #400 mL 06/16/22 suspension doxycycline hyclate 100 mg tablet 100 mg PO BID 7 days #14 tabs 08/08/22 cyclobenzaprine 5 mg tablet 5 mg PO TID PRN muscle spasm #10 08/18/22 tabs lidocaine 5 % topical patch 1 patch topical DAILY #15 ea 08/18/22 Allergies Allergy/AdvReac Type Severity Reaction Status Date / Time No Known Allergies Allergy Verified 08/18/22 08:22 Review of Systems Review of Systems: As per HPI Yes all other systems are reviewed and are negative Constitutional: Constitutional: Reports as per HPI [facility] Past Medical History Medical History (Updated 08/18/22 @ 10:30 by Raisa Reddy NP) DJD (degenerative joint disease) Goiter HLD (hyperlipidemia) HTN (hypertension) Hypogonadism male Morbid obesity Obesity Sleep apnea with use of continuous positive airway pressure (CPAP) T2DM (type 2 diabetes mellitus) Vitamin D deficiency Surgical History H/O arthroscopy of left knee Hx of appendectomy Family History Family History Father Coronary artery disease Hypertension Mother Coronary artery disease Hypertension Stroke Brother Cancer Social History Social History Household Members: Family Housing: House Are you a primary child care nurse to a significant other at home: No Do you presently have visiting nurse or other home services: No Alcohol intake: current Alcohol intake frequency: holidays/special occasions only Alcohol type: wine Patient Tobacco Use Status: Never used Tobacco Advance Directives: Yes Advance Directives on File: Yes Advance Directives Date on File: 07/04/22 service: No Physical Exam ED Vital Signs: Vital Signs - 24 hr 08/18/22 08:22 Temperature 98 F Pulse Rate 55 Respiratory Rate 19 Blood Pressure 171/77 H Pulse Oximetry 98 Oxygen Delivery Method Room Air BMI result Body Mass Index 35.9 Const General: cooperative, healthy appearing and no acute distress Orientation/consciousness: oriented to person, oriented to place, oriented to time and patient oriented x3 Limitations: no limitations HENMT Head: Yes normocephalic and Yes atraumatic Ears: external ears normal General nose exam: Normal external nose present Face and sinus: Yes face symmetric Mouth: oropharynx normal and moist mucous membranes Throat: Yes uvula midline Eyes Pupils: Equal, round and reactive pupils present Neck Neck: Yes normal visual inspection and Yes supple Resp Effort & Inspection: normal respiratory effort and able to speak in complete sentences Auscultation: clear to auscultation bilaterally Cardio Rate: regular rate Rhythm: regular rhythm Heart sounds: S1 normal heart sound present and S2 normal heart sound present GI Palpation (GI): Soft to palpation, nontender and no hernias Auscultation: normoactive bowel sounds General: Yes no CVA tenderness Back/Spine/Pelvis Back: no CVA tenderness Cervical Spine: No Cervical spine tenderness Thoracic/Lumbar Spine: thoracic and lumbar spine normal to inspection, thoraco- lumbar ROM normal, straight leg raise negative bilaterally, thoraco-lumbar spasm on the right in the lower lumbar, No thoracic spinal tenderness and No lumbar spinal tenderness Pelvis: no pain with anterior-posterior compression, no pain with lateral compression and sciatic notch tenderness on the left Sacroiliac joints: bilaterally nontender Skin General skin exam: elasticity normal and turgor normal Trauma: no lacerations or abrasions Wounds: no wounds Neuro General: oriented to person, oriented to place, oriented to time, patient oriented x3, moves all extremities, no focal motor deficits, CN's II-XI intact bilaterally and deep tendon reflexes 2+ bilaterally Cranial nerves: Yes Equal, round and reactive pupils present Cognition (Neuro): normal cognition Motor exam (neuro): 5/5 motor strength present throughout Extrem General: Yes full ROM, Yes no pedal edema and Yes no calf tenderness Right lower extremity: normal to inspection, full ROM, normal capillary refill and hip/thigh Details: normal to inspection and normal ROM; no tenderness, no swelling, no ecchymosis, no crepitus, no deformity and no unusual warmth; no edema and joint enlargement noted Psych Mental Status: mental status grossly normal Affect: normal affect Thought process: Normal thought process present Course Course Course Narrative: 10:39 FINDINGS: Mild multilevel degenerative disc disease throughout the lumbar spine, characterized by loss of intervertebral disc height and endplate osteophytes. More moderate degenerative facet arthropathy is present in the lower lumbar spine, right side greater than left. 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 Vertebral body heights are normal. No fracture or spondylolisthesis. Mild osteoarthritis in the SI joints. Bone mineralization is normal. Cholecystectomy clips. No acute soft tissue findings. XR/XR lumbar spine 2-3V IMPRESSION: 1.? Mild multilevel degenerative disc disease in the lumbar spine with more moderate degenerative facet arthropathy in the lower lumbar spine. 2.? No acute fracture or malalignment. Discussed results of x-ray with patient, fell pain is likely related to lumbar radiculopathy which is likely related to his DDD. Feel patient is safe to discharge home. Prescribed Flexeril as needed and topical lidocaine patches, continue with Tylenol. Instructed patient to follow-up with PCP as well as bariatric surgeon for further management of his discomfort. Return precautions discussed at bedside. Medications Administered Discontinued Medications Generic Name Dose Route Start Last Admin Trade Name Freq PRN Reason Stop Dose Admin Ketorolac Tromethamine 30 mg 08/18/22 09:01 08/18/22 09:29 Ketorolac Tromethamine 30 Mg/Ml Vial IM 08/18/22 09:02 30 mg ONCE ONE Administration Lidocaine 1 patch 08/18/22 09:01 08/18/22 09:31 Lidocaine 4 % Patch Adh..Patch TRANSDERMA 08/18/22 09:02 1 patch ONCE ONE Administration Protocol Medical Decision Making Medical Decision Making MDM Narrative: Patient is a 62-year-old male with history of sleeve gastrectomy 6 weeks ago, has had 70lb weight loss in the past 4 months, complaining of right lateral hip pain radiating to right lateral upper leg for the past 2 days. On exam patient is nontoxic appearing, BP elevated, VS otherwise WNL, is afebrile, is without midline thoracic or lumbar tenderness to palpation, has full ROM of right hip and knee. Concern for disc herniation, muscle strain, osteoarthritis, Lower concern for osteomyelitis or septic arthritis, fracture, or neurovascular compromise. Unlikely abscess or cellulitis, DVT, gout. Plan: Will obtain x-ray, pain control Differential Diagnosis Differential Diagnoses: The differential diagnosis associated with the presentation includes As above. Independent Interpretation I performed an independent interpretation of an: Plain X-Ray Interpretation: I independently reviewed the x-ray and agree with the radiologist's interpretation. Radiology Impression Discussion of test interpretation with radiology: I have reviewed the radiologist's reading. Radiologist Impression: FINDINGS: Mild multilevel degenerative disc disease throughout the lumbar spine, characterized by loss of intervertebral disc height and endplate osteophytes. More moderate degenerative facet arthropathy is present in the lower lumbar spine, right side greater than left. 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 Vertebral body heights are normal. No fracture or spondylolisthesis. Mild osteoarthritis in the SI joints. Bone mineralization is normal. Cholecystectomy clips. No acute soft tissue findings. XR/XR lumbar spine 2-3V IMPRESSION: 1.? Mild multilevel degenerative disc disease in the lumbar spine with more moderate degenerative facet arthropathy in the lower lumbar spine. 2.? No acute fracture or malalignment. External Record Review External record reviewed: Inpatient record, Office record and Outpatient record Prescription Management I considered prescription management with: Pain Medication Discharge Plan Discharge Clinical Impression: Degenerative joint disease (DJD) of lumbar spine, Acute lumbar radiculopathy Patient Disposition: Home, Self-Care Instructions: Osteoarthritis (DC), Lumbar Radiculopathy (ED), Lower Back Exercises (ED), Cyclobenzaprine (By mouth), Lidocaine Patch (On the skin) Additional Instructions: You were evaluated in the emergency department today for your right hip and right leg pain. Your x-ray shows evidence of degenerative disc disease and arthritis in your lumbar spine. This is likely causing inflammation to your nerves, causing your pain. You should continue using Tylenol 650 mg every 6 hours as needed for pain. You are also being prescribed 5% topical lidocaine patches which you can wear for up to 12 hours in a 24 hour period. Do not apply heat directly over the patches. You are also being prescribed a muscle relaxer, Flexeril, which you can take every 8 hours as needed for muscle spasms. You should continue to take warm baths and can add Epsom salt for additional relief. Continue performing gentle stretching exercises, avoiding any exercises that cause or increased ear pain. Please schedule a follow-up appointment with your primary care provider this week for further evaluation of your symptoms. Return to the emergency department if you experience worsening pain, difficulty walking, fever, numbness, tingling, incontinence or any other concerning symptoms. Prescriptions: New lidocaine 5 % adhesive patch,medicated 1 patch topical DAILY Qty: 15 0RF Rx Instructions: leave on most painful area for up to 12 hrs cyclobenzaprine 5 mg tablet 5 mg PO TID PRN (Reason: muscle spasm) Qty: 10 0RF No Action testosterone cypionate 200 mg/mL oil 80 mg IM QWEEK Hold Instructions: Resume on 08/01/22. (DME) blood pressure test kit-large Kit See Rx Instructions .ROUTE DIRECTED Qty: 1 Rx Instructions: As directed (DME) syringe with needle 3 mL 25 gauge x 1 syringe See Rx Instructions .ROUTE QWEEK Qty: 1 Rx Instructions: As directed (DME) syringe with needle 3 mL 22 gauge x 1 syringe See Rx Instructions .ROUTE QWEEK Qty: 1 Rx Instructions: As directed weekly for testosterone administration metoprolol succinate 100 mg tablet extended release 24 hr 100 mg PO DAILY Hold Instructions: Resume on 07/04/22. Check your blood pressure every evening and send it to Dr. Alvarado. Do not take the medication before you hear from Dr. Alvarado. Do not take the medication if your blood pressure is below 120/70 mmHg. tramadol 50 mg tablet 50 mg PO Q8H PRN (Reason: Pain) pantoprazole 40 mg tablet,delayed release (DR/EC) 40 mg PO DAILY Qty: 30 2RF sucralfate 100 mg/mL suspension 10 ml PO BID Qty: 400 2RF doxycycline hyclate 100 mg tablet 100 mg PO BID 7 Days Qty: 14 0RF hydrochlorothiazide 12.5 mg capsule 25 mg PO DAILY
[2022-08-18] MEDS: Ketorolac Tromethamine 30 MG/ML VIAL IM (09:29)
[2022-08-18] MEDS: Lidocaine 4 % Patch ADH..PATCH 1 PATCH TRANSDERMA (09:31)
== END 2022-08-18 10:59 | disposition home or self-care (01) ==
PROVIDERS: Emergency Provider Emergency Medicine
DX: M47.896 Other spondylosis, lumbar region (principal); M54.16 Radiculopathy, lumbar region; Z79.899 Other long term (current) drug therapy
CPT/HCPCS: 72100; 96372; 99283; 99284; J1885

== ENCOUNTER → 2022-09-05 09:47 | Outpatient (BNVA) | payer MEDICARE, MEDICAID, SELFPAY | PROVIDERS: PCP Internal Medicine; Visit Provider Physician Assistant | DX: Z48.815 Encounter for surgical aftercare following surgery on the digestive system (principal); Z98.84 Bariatric surgery status | CPT/HCPCS: 99212 ==

== ENCOUNTER 2022-09-25 10:15 | Outpatient (REF) | payer MEDICARE, MEDICAID, SELFPAY ==
--- NOTE | ~2022-09-25 | XR_ITS ---
EXAMINATION: XR HIP, RIGHT CLINICAL INFORMATION: Pain COMPARISON: None available. TECHNIQUE: AP pelvis and 2 views of the right hip. FINDINGS: AP film of the pelvis does not demonstrate any fracture or diastases. Changes of enthesopathy seen. Hip joint spaces appear maintained with some calcifications about both superior labrum. No evidence of widening or fusion of the sacroiliac joints with some mild sclerosis bilaterally. There is facet arthropathy L5-S1. There is a 7 mm low-density lesion seen about the superior aspect of the left pubic bone which may represent subchondral cyst formation. No cortical break is identified. 2 views of the right hip do not demonstrate any evidence of acute fracture or dislocation. Right hip joint space is maintained. There is mild spurring present. No abnormal lytic or sclerotic lesions are identified within the femoral head and there is no evidence of femoral head collapse. There is mild spurring about the greater trochanter. XR/XR hip RT w PEL1V IMPRESSION: Changes of enthesopathy. 7 mm low-density lesion without cortical disruption superior left pubis. Mild degenerative change of the right hip.
== END 2022-09-25 10:16 | disposition home or self-care (01) ==
LOC: HO.XRAY 10:15
PROVIDERS: Visit Provider Physician Assistant
DX: M25.551 Pain in right hip (principal)
CPT/HCPCS: 73502

== ENCOUNTER → 2022-10-03 10:59 | Outpatient (BNVA) | payer MEDICARE, MEDICAID, SELFPAY | PROVIDERS: PCP Internal Medicine; Visit Provider Physician Assistant | DX: E66.9 Obesity, unspecified (principal); Z68.35 Body mass index [BMI] 35.0-35.9, adult; Z98.84 Bariatric surgery status | CPT/HCPCS: 99212 ==

== ENCOUNTER 2022-10-07 15:07 | Outpatient (REF) | payer MEDICARE, MEDICAID, SELFPAY ==
--- NOTE | ~2022-10-07 | MR_ITS ---
EXAMINATION: MR LUMBAR SPINE WITHOUT CONTRAST CLINICAL INFORMATION: Acute right-sided low back pain COMPARISON: Lumbar spine radiographs 08/18/2022 TECHNIQUE: MRI of the lumbar spine was obtained using routine sequences without contrast. FINDINGS: Normal lumbar lordosis is preserved. No significant spondylolisthesis. There is mild chronic height loss of the L5 vertebral body with posterior wedging. Multilevel disc desiccation with preserved disc height. Multilevel degenerative changes with level by level detail as follows: L1-L2: Mild to moderate bilateral facet arthrosis with ligamentum flavum thickening and annular disc bulge. Mild spinal canal narrowing. No significant neural foraminal stenosis. L2-L3: Mild to moderate bilateral facet arthrosis with ligamentum flavum thickening, annular disc bulge with a superimposed superiorly and inferiorly migrated central disc extrusion spanning approximately 1.4 cm in craniocaudal dimension. Moderate to severe spinal canal stenosis with mass effect along the cauda equina nerve roots. Mild to moderate bilateral neural foraminal stenosis with mass effect along the extraforaminal left L2 nerve root. L3-L4: Annular disc bulge with superimposed broad-based paracentral disc protrusion and moderate bilateral facet arthrosis with ligamentum flavum thickening. Mild spinal canal stenosis and asymmetric left subarticular zone narrowing with mass effect along the traversing left L4 nerve root. Encroachment upon the traversing right L4 nerve root. Mild to moderate left and mild right neural foraminal stenosis with mass effect along the extraforaminal left L3 nerve root. L4-L5: Disc osteophyte complex with superimposed broad-based right paracentral disc protrusion with annular fissure, right lateral disc osteophyte, and moderate bilateral facet arthrosis. No spinal canal stenosis, noting asymmetric right subarticular zone narrowing and mass effect along the traversing right L5 nerve root. Moderate right and mild left neural foraminal stenosis. L5-S1: Annular disc bulge with moderate to advanced right greater than left facet arthrosis. No spinal canal stenosis. Moderate bilateral neural foraminal stenosis with mass effect upon the exiting L5 nerve roots. The conus medullaris terminates at the level of L1. The distal spinal cord is normal in appearance. . No epidural fluid collection, hematoma, or mass. No significant abnormalities of the paraspinal musculature. 9.9 cm exophytic left renal cyst as seen on prior abdominal ultrasound. The abdominal aorta is of normal contour and caliber. Ventral osteophytic spurring across the sacroiliac joints. MR/MR lumbar spine wo con IMPRESSION: 1. At L2-L3, a superimposed superiorly and inferiorly migrated central disc extrusion spanning 1.4 cm in craniocaudal dimension contributes to moderate to severe spinal canal stenosis with mass effect along the cauda equina nerve roots. 2. At L3-L4, there is mild spinal canal stenosis and asymmetric left subarticular zone narrowing with mass effect along the traversing left L4 nerve root. 3. At L4-L5, a broad-based right paracentral disc protrusion with annular fissure contributes to asymmetric right subarticular zone narrowing and mass effect on the traversing right L5 nerve root. 4. Additional level by level as above.
== END 2022-10-07 15:08 | disposition home or self-care (01) ==
LOC: HO.MRI 15:07
PROVIDERS: PCP Internal Medicine; Visit Provider Internal Medicine
DX: M54.41 Lumbago with sciatica, right side (principal)
CPT/HCPCS: 72148

== ENCOUNTER → 2022-10-22 09:51 | Outpatient (BNVA) | payer MEDICARE, MEDICAID, SELFPAY | PROVIDERS: PCP Internal Medicine; Visit Provider Dietitian, Registered | DX: E66.01 Morbid (severe) obesity due to excess calories (principal); Z68.33 Body mass index [BMI] 33.0-33.9, adult | CPT/HCPCS: 97803 ==

== ENCOUNTER 2022-11-11 15:17 | Outpatient (AMB) | payer OTHER, MEDICARE, MEDICAID, SELFPAY ==
--- NOTE | 2022-11-19 17:05 | MHC.WMTHER ---
Intake Intake Visit Reasons: (OV) PO LSG 07/02/22 Allergies No Known Allergies Allergy (Verified 10/03/22 11:08) PFSH Medical History (Updated 08/19/22 @ 00:08 by Ely Meraz) DJD (degenerative joint disease) Goiter HLD (hyperlipidemia) HTN (hypertension) Hypogonadism male Morbid obesity Obesity Sleep apnea with use of continuous positive airway pressure (CPAP) T2DM (type 2 diabetes mellitus) Vitamin D deficiency Surgical History H/O arthroscopy of left knee Hx of appendectomy Family History Father Coronary artery disease Hypertension Mother Coronary artery disease Hypertension Stroke Brother Cancer Social History Household Members: Family Housing: House Are you a primary patient care provider to a significant other at home: No Do you presently have visiting nurse or other home services: No Alcohol intake: current Alcohol intake frequency: holidays/special occasions only Alcohol type: wine Patient Tobacco Use Status: Never used Tobacco Advance Directives Date on File: 07/04/22 service: No Behavioral Health Assessment Weight Management Therapy Therapy Notes Details Pt is now a few months post surgery. He was concerned about some old habits coming back. we discussed all the progress he has made and being mindful of what he is eating and why. the 'snacking he described seemed to be healthy choices. Previous session: Pt reported doing well generally. Discussed how he is off of all diabetes medication and A1C is 5.6. Positive reinforcement and motivational interviewing used. Also blood pressure has been improving. he is struggling with back and knee pain since being off anit inflammatory due to surgery scheduled next week. Also head hunger . He talked about using meditation in the past for pain and it had helped me. We discussed some different ones combined with healing frequencies and breathing. Demetris already has some great coping mechanisms and listens to music in that frequency. Assessment & Plan Assessment & Plan (1) Binge-eating disorder, in partial remission, mild: Code(s): F50.81 - Binge eating disorder (2) Obesity: Code(s): E66.9 - Obesity, unspecified Qualifiers: Obesity type: due to excess calories Plan Patient is a pleasent 62 year old male who was joined by his during initial assessment. His expressed concerns about his emotional eating and believes it stems from unresolved issues from childhood. Patient became tearful when talking about his dad and brother. He has used food to cope with often and also has other healthy coping skills that he identified today. He is doing well in the program,motivated, consistent, and is interested in additional therapy to help resolve core issues. He is cleared for surgery and will be seen again. Pt has made great progress since starting the program and does very well in sessions. We disucssed different coping mechanisms that help with healing and dealing with head hunger. He will be seen again after surgery. Coding Level of Care Code Psytx 45 mins (27660) Diagnoses Binge-eating disorder, in partial remission, mild F50.81 Obesity E66.9 Obesity type: due to excess calories Time Spent (min) 45
== END 2022-11-19 17:05 | disposition home or self-care (01) ==
PROVIDERS: PCP Internal Medicine; Visit Provider Counselor Mental Health
DX: F50.81 Binge eating disorder (principal); E66.9 Obesity, unspecified
CPT/HCPCS: 90834

== ENCOUNTER → 2022-11-11 15:17 | Outpatient (BNVA) | payer MEDICARE, MEDICAID, SELFPAY | PROVIDERS: PCP Internal Medicine; Visit Provider Counselor Mental Health ==

== ENCOUNTER 2022-11-25 13:51 | Outpatient (AMB) | payer MEDICARE, MEDICAID, SELFPAY ==
--- NOTE | 2022-11-25 13:05 | A.OFFVIS_ITS ---
Intake VS Expanded 11/25/22 14:03 Height 5 ft 6 in Weight 214 lb 3.2 oz BMI 34.6 BP 154/80 H Blood Pressure Location Rt brachial Blood Pressure Position Sitting Pulse 91 Pulse Source Pulse Oximeter Temp 98.0 F Temperature Source Tympanic Pulse Oximetry 96 Oxygen Delivery Method Room Air Body Fat 57.8 Body Fat Percentage 27.0 Free Fat Mass 156.4 Muscle Mass 148.6 Visceral Mass 16.0 Water Mass 116.6 BMR 2,078 Intake Visit Reasons: (OV) PO LSG 07/02/22 Allergies No Known Allergies Allergy (Verified 11/25/22 14:05) HPI HPI Comments History of Present Illness Details Pt is now 4.5months s/p LSG. [employer] weight of 292.8, weighed 209 at last appt last month with Cynthia, has gained 5 lbs since then. TBWL of 78.6 lbs. Still recovering from injury from a few months ago - can not use treadmill at this time- lifting weights 3-4 d/week only. Had cortsione injection in hip 2 weeks ago and will have another in spine later this month Saw Cynthia on 10/22 - gave him plan but he changed it to: 8am - Celebrate 4:1 - 1 scoop mixed with almond milk (didn't mention option to change to cows milk? at this appt) 11 am - 2 scoops of 4in1 with almond milk 5-6pm - 4 oz protein, and 6oz vegetables? 7-9 pm -? 1 scoops of 4:1 with almond milk 10pm 2 perfect protein bar?- each over 10 minutes [facility] Medical History (Updated 08/19/22 @ 00:08 by Ely Meraz) DJD (degenerative joint disease) Goiter HLD (hyperlipidemia) HTN (hypertension) Hypogonadism male Morbid obesity Obesity Sleep apnea with use of continuous positive airway pressure (CPAP) T2DM (type 2 diabetes mellitus) Vitamin D deficiency Surgical History H/O arthroscopy of left knee Hx of appendectomy Family History Father Coronary artery disease Hypertension Mother Coronary artery disease Hypertension Stroke Brother Cancer Social History (Reviewed 06/22/23 @ 11:08 by VALENTE Alex Household Members: Family Housing: House Are you a primary home care chaplain to a significant other at home: No Do you presently have visiting nurse or other home services: No Alcohol intake: current Alcohol intake frequency: holidays/special occasions only Alcohol type: wine Patient Tobacco Use Status: Never used Tobacco Advance Directives Date on File: 07/04/22 service: No Assessment & Plan Assessment & Plan (1) S/P laparoscopic sleeve gastrectomy: Code(s): Z98.84 - Bariatric surgery status Plan: Post op with 5 lb weigh gain over last month. Continue weights and start sitting Da Clif or TBP 30 minute -5d/ week exercises until can stand and do cardio again. 8am - 4:1 2 scoop 12 p m - - 4:1 shake 1 scoop 3pm - 4:1 1 scoop 6pm - 3 oz protein and 3 oz veg 9pm - bar in 10 pieces Post labs to be done in mid Dec with me. Will continue to see Sheryl and will join peer support group for help with emotional eating next aptp with me in 6 weeks. Patient is obese and is not considered stable at this time. I spent 30 minutes in total with patient reviewing/updating records, examining the patient and counseling the patient on weight management as detailed above. (2) Obesity: Code(s): E66.9 - Obesity, unspecified Qualifiers: Obesity type: due to excess calories (3) Sleep apnea with use of continuous positive airway pressure (CPAP): Code(s): G47.30 - Sleep apnea, unspecified Orders: Orders Vitamin B12 and Folate Today K74.00 - Hepatic fibrosis, unspecified, Z98.84 - Bariatric surgery status Comprehensive Met. Panel Today K74.00 - Hepatic fibrosis, unspecified, Z98.84 - Bariatric surgery status C Reactive Protein Today K74.00 - Hepatic fibrosis, unspecified, Z98.84 - Bariatric surgery status Ferritin Today K74.00 - Hepatic fibrosis, unspecified, Z98.84 - Bariatric surgery status Hemoglobin A1c Today K74.00 - Hepatic fibrosis, unspecified, Z98.84 - Bariatric surgery status Insulin Today K74.00 - Hepatic fibrosis, unspecified, Z98.84 - Bariatric surgery status IRON PROFILE Today K74.00 - Hepatic fibrosis, unspecified, Z98.84 - Bariatric surgery status Lipid Panel Today K74.00 - Hepatic fibrosis, unspecified, Z98.84 - Bariatric surgery status PTHI Today K74.00 - Hepatic fibrosis, unspecified, Z98.84 - Bariatric surgery status TSH reflex Free T4 Today K74.00 - Hepatic fibrosis, unspecified, Z98.84 - Bariatric surgery status Vitamin A Today K74.00 - Hepatic fibrosis, unspecified, Z98.84 - Bariatric surgery status Vitamin B1 Today K74.00 - Hepatic fibrosis, unspecified, Z98.84 - Bariatric surgery status Vitamin D 25-OH Total Today K74.00 - Hepatic fibrosis, unspecified, Z98.84 - Bariatric surgery status Zinc Today K74.00 - Hepatic fibrosis, unspecified, Z98.84 - Bariatric surgery status Complete Blood Count Auto Diff Today K74.00 - Hepatic fibrosis, unspecified, Z98.84 - Bariatric surgery status Coding Level of Care Code Est Pt Level 4 (60689) Diagnoses S/P laparoscopic sleeve gastrectomy Z98.84 Obesity E66.9 Obesity type: due to excess calories Sleep apnea with use of continuous positive airway pressure (CPAP) G47.30
[2022-11-25 14:03] VITALS: BP 154/80; PULSE 91; TEMP 36.7; O2SAT 96; BMI 34.6
== END 2022-11-25 14:37 | disposition home or self-care (01) ==
PROVIDERS: PCP Internal Medicine; Visit Provider Physician Assistant
DX: E66.9 Obesity, unspecified (principal); Z68.34 Body mass index [BMI] 34.0-34.9, adult; Z90.3 Acquired absence of stomach [part of]; Z98.84 Bariatric surgery status
CPT/HCPCS: 99214

== ENCOUNTER → 2022-11-25 13:51 | Outpatient (BNVA) | payer MEDICARE, MEDICAID, SELFPAY | PROVIDERS: PCP Internal Medicine; Visit Provider Physician Assistant | DX: E66.01 Morbid (severe) obesity due to excess calories (principal); G47.30 Sleep apnea, unspecified; Z68.34 Body mass index [BMI] 34.0-34.9, adult; Z98.84 Bariatric surgery status; Z99.89 Dependence on other enabling machines and devices | CPT/HCPCS: 99212 ==

== ENCOUNTER → 2022-12-09 10:15 | Outpatient (BNVA) | payer OTHER, MEDICARE, MEDICAID, SELFPAY | PROVIDERS: PCP Internal Medicine; Visit Provider Counselor Mental Health ==

== ENCOUNTER → 2022-12-09 12:50 | Outpatient (AMB) | payer OTHER, MEDICAID, SELFPAY ==
--- NOTE | 2022-12-09 12:50 | A.OFFWM_ITS ---
Intake Intake Visit Reasons: VIDEO PO LSG 07/02/22 Allergies No Known Allergies Allergy (Verified 11/25/22 14:05) PFSH Medical History (Updated 08/19/22 @ 00:08 by Ely Meraz) DJD (degenerative joint disease) Goiter HLD (hyperlipidemia) HTN (hypertension) Hypogonadism male Morbid obesity Obesity Sleep apnea with use of continuous positive airway pressure (CPAP) T2DM (type 2 diabetes mellitus) Vitamin D deficiency Surgical History H/O arthroscopy of left knee Hx of appendectomy Family History Father Coronary artery disease Hypertension Mother Coronary artery disease Hypertension Stroke Brother Cancer Social History Household Members: Family Housing: House Are you a primary child care centre director to a significant other at home: No Do you presently have visiting nurse or other home services: No Alcohol intake: current Alcohol intake frequency: holidays/special occasions only Alcohol type: wine Patient Tobacco Use Status: Never used Tobacco Advance Directives Date on File: 07/04/22 service: No Behavioral Health Assessment Weight Management Therapy Therapy Notes Details Pt is now a few months post surgery. He was concerned about some old habits coming back. we discussed all the progress he has made and being mindful of what he is eating and why. the 'snacking he described seemed to be healthy choices. Talked about the differences between feeling empty and being hungry, also trying to sit with how he is feeling, going to sleep earlier and getting out of the habit of snacking out of boredome. Previous session: Pt reported doing well generally. Discussed how he is off of all diabetes medication and A1C is 5.6. Positive reinforcement and motivational interviewing used. Also blood pressure has been improving. he is struggling with back and knee pain since being off anit inflammatory due to surgery scheduled next week. Also head hunger . He talked about using meditation in the past for pain and it had helped me. We discussed some different ones combined with healing frequencies and breathing. Demetris already has some great coping mechanisms and listens to music in that frequency. Assessment & Plan Assessment & Plan (1) Binge-eating disorder, in partial remission, mild: Code(s): F50.81 - Binge eating disorder (2) Obesity: Code(s): E66.9 - Obesity, unspecified Qualifiers: Obesity type: due to excess calories Plan Patient is a pleasent 62 year old male who was joined by his during initial assessment. His expressed concerns about his emotional eating and believes it stems from unresolved issues from childhood. Patient became tearful when talking about his dad and brother. He has used food to cope with often and also has other healthy coping skills that he identified today. He is doing well in the program,motivated, consistent, and is interested in additional therapy to help resolve core issues. He is cleared for surgery and will be seen again. Pt has made great progress since starting the program and does very well in sessions. We disucssed different coping mechanisms that help with healing and dealing with head hunger. He will be seen again after surgery. Telehealth Telehealth Location of provider rendering services: other Location of patient: address on file Patient Identification confirmed using: Name, : Yes Telehealth method: voice only Patient verbally consented to treatment: Yes Patient verbally consented to billing insurance company: Yes Patient informed of any privacy concerns related to visit: Yes Minutes spent on Phone/Video with Pt.: 30 Coding Level of Care Code Tele Psytx 30 mins (36610) Diagnoses Binge-eating disorder, in partial remission, mild F50.81 Obesity E66.9 Obesity type: due to excess calories Time Spent (min) 30
== END | disposition home or self-care (01) ==
LOC: HO.HBST 10:15
PROVIDERS: PCP Internal Medicine; Visit Provider Counselor Mental Health
DX: F50.81 Binge eating disorder (principal); E66.9 Obesity, unspecified
CPT/HCPCS: 90832

== ENCOUNTER → 2023-01-27 11:16 | Outpatient (BNVA) | payer OTHER, MEDICARE, MEDICAID, SELFPAY | PROVIDERS: PCP Internal Medicine; Visit Provider Counselor Mental Health ==

== ENCOUNTER 2023-01-27 11:17 | Outpatient (AMB) | payer OTHER, MEDICARE, MEDICAID, SELFPAY ==
--- NOTE | 2023-02-10 11:32 | A.OFFWM_ITS ---
Intake Intake Visit Reasons: (OV) BH F/U Allergies No Known Allergies Allergy (Verified 02/10/23 10:15) PFSH Medical History (Updated 08/19/22 @ 00:08 by Ely Meraz) DJD (degenerative joint disease) Sleep apnea with use of continuous positive airway pressure (CPAP) Morbid obesity Obesity Goiter Hypogonadism male Vitamin D deficiency HLD (hyperlipidemia) HTN (hypertension) T2DM (type 2 diabetes mellitus) Surgical History H/O arthroscopy of left knee Hx of appendectomy Family History Father Coronary artery disease Hypertension Mother Coronary artery disease Hypertension Stroke Brother Cancer Social History Household Members: Family Housing: House Are you a primary care specialist to a significant other at home: No Do you presently have visiting nurse or other home services: No Alcohol intake: current Alcohol intake frequency: holidays/special occasions only Alcohol type: wine Patient Tobacco Use Status: Never used Tobacco Advance Directives Date on File: 07/04/22 service: No Behavioral Health Assessment Weight Management Therapy Therapy Notes Details Pt stated that he is frustrated to have hit a plateau. he discussed snacking behavior, asked multiple questions, and was encouraged to follow up with his provider. He is doing well overall. Previous session: Pt reported doing well generally. Discussed how he is off of all diabetes medication and A1C is 5.6. Positive reinforcement and motivational interviewing used. Also blood pressure has been improving. he is struggling with back and knee pain since being off anit inflammatory due to surgery scheduled next week. Also head hunger . He talked about using meditation in the past for pain and it had helped me. We discussed some different ones combined with healing frequencies and breathing. Demetris already has some great coping mechanisms and listens to music in that frequency. Assessment & Plan Assessment & Plan (1) Binge-eating disorder, in partial remission, mild: Code(s): F50.81 - Binge eating disorder (2) Obesity: Code(s): E66.9 - Obesity, unspecified Qualifiers: Obesity type: due to excess calories Plan Patient is a pleasent 62 year old male who was joined by his during initial assessment. His expressed concerns about his emotional eating and believes it stems from unresolved issues from childhood. Patient became tearful when talking about his dad and brother. He has used food to cope with often and also has other healthy coping skills that he identified today. He is doing well in the program,motivated, consistent, and is interested in additional therapy to help resolve core issues. He is cleared for surgery and will be seen again. Pt has made great progress since starting the program and does very well in sessions. We disucssed different coping mechanisms that help with healing and dealing with head hunger. He will be seen again after surgery. Coding Level of Care Code Psytx 45 mins (41459) Diagnoses Binge-eating disorder, in partial remission, mild F50.81 Obesity E66.9 Obesity type: due to excess calories Time Spent (min) 40
== END 2023-01-27 14:30 | disposition home or self-care (01) ==
PROVIDERS: PCP Internal Medicine; Visit Provider Counselor Mental Health
DX: F50.81 Binge eating disorder (principal); E66.9 Obesity, unspecified
CPT/HCPCS: 90834

== ENCOUNTER 2023-02-04 08:33 | Outpatient (REF) | payer OTHER, MEDICARE, MEDICAID, SELFPAY ==
[2023-02-04 09:01] LABS: MANUAL DIFF FLAG NO
[2023-02-04 09:26] LABS: Basophils Percent Auto 0.5 % (0-2); Eosinophils Absolute Auto 0.2 X10*3/uL (0.0-0.4); Hematocrit 47.1 % (42.0-52.0); Hemoglobin 16.2 g/dl (14.0-18.0); Imm Gran Abs Auto 0.01 X10*3/uL (0.00-0.03); Imm Gran Pct Auto 0.2 % (0.0-0.4); Lymphocytes Absolute Auto 1.9 X10*3/uL (1.2-4.9); Lymphocytes Percent Auto 33.4 % (20-40); Mean Corpuscular HGB Conc 34.4 g/dl (31.0-36.0); Mean Corpuscular Hemoglobin 32.6 pg (27.0-33.0); Mean Corpuscular Volume 94.8 fL (80.0-98.0); Mean Platelet Volume 9.5 fL (9.4-12.4); Monocytes Absolute Auto 0.4 X10*3/uL (0.1-1.2); Monocytes Percent Auto 6.4 % (2-11); Neutrophils Absolute Auto 3.2 x10*3/uL (2.0-8.3); Neutrophils Percent Auto 56.5 % (45-73); Platelet Count 166 X10*3/uL (160-400); Red Blood Count 4.97 X10*6/uL (4.60-5.80); Red Cell Distribution Width 12.8 % (11.0-16.0); White Blood Count 5.7 X10*3/uL (4.8-10.8)
[2023-02-04 10:02] LABS: Estimated Average Glucose 88 mg/dL; Hemoglobin A1c % 4.7 % (<6.0)
[2023-02-04 10:06] LABS: Alanine Aminotransferase 54 U/L (0-40); Alkaline Phosphatase 46 U/L (39-117); Anion Gap 14 (12-20); Aspartate Amino Transferase 37 U/L (5-37); Bilirubin Total 0.8 mg/dL (0.0-1.0); Blood Urea Nitrogen 29 mg/dL (9-16); C Reactive Protein 0.26 mg/dL (< or = 0.50); Calcium 8.9 mg/dL (8.4-10.2); Carbon Dioxide 24 mmol/L (22-29); Chloride 107 mmol/L (96-108); Cholesterol 121 mg/dL (<200); Estimated Glomerular Filt Rate > 60; Glucose Random 92 mg/dL (60-115); HDL Cholesterol 36 mg/dL (>40); Iron 74 mcg/dL (45-160); LDL Cholesterol Calculated 77 mg/dL (<100); Percent Iron Saturation 27 % (15-50); Potassium 3.6 mmol/L (3.3-5.1); Sodium 141 mmol/L (135-145); Total Iron Binding Capacity 273 mcg/dL (228-428); Total Protein 7.2 g/dL (6.5-8.0); Triglycerides 40 mg/dL (<150); Unsaturated Iron Binding 199 ug/dL
[2023-02-04 10:25] LABS: Ferritin 111 ng/mL (20-250); Insulin 4 uU/mL (2-29); TSH reflex Free T4 2.46 uIU/mL (0.32-4.0); Vitamin D 25-OH Total 41.4 ng/mL (>30)
[2023-02-04 10:38] LABS: Vitamin B12 779 pg/mL (200-900)
[2023-02-04 10:50] LABS: Folate 12.5 ng/mL (> or = 4.0)
[2023-02-05 16:34] LABS: Calcium (PTHI) 8.9 mg/dL (8.6-10.3); PTHI 52 pg/mL (16-77)
[2023-02-07 14:39] LABS: Zinc 65 mcg/dL (60-130)
[2023-02-09 06:18] LABS: Vitamin B1 16 nmol/L (8-30)
[2023-02-10 04:14] LABS: Vitamin A 45 mcg/dL (38-98)
== END 2023-02-04 08:34 | disposition home or self-care (01) ==
LOC: HO.LAB 08:33
PROVIDERS: PCP Internal Medicine; Visit Provider Physician Assistant
DX: K74.00 Hepatic fibrosis, unspecified (principal); Z98.84 Bariatric surgery status
CPT/HCPCS: 36415; 80053; 80061; 82306; 82607; 82728; 82746; 83036; 83525; 83540; 83970; 84425; 84443; 84590; 84630; 85025; 86140

== ENCOUNTER 2023-02-10 10:05 | Outpatient (AMB) | payer MEDICARE, MEDICAID, SELFPAY ==
--- NOTE | 2023-02-10 10:12 | MHC.OFFVISWM ---
Intake VS Expanded 02/10/23 10:16 BP 158/83 H Blood Pressure Location Rt brachial Blood Pressure Position Sitting Pulse 72 Pulse Source Pulse Oximeter Temp 97.6 F Temperature Source Tympanic Pulse Oximetry 97 Oxygen Delivery Method Room Air Height 5 ft 6 in Weight 218 lb 3.2 oz BMI 35.2 Body Fat % 27.0 Body Fat Mass 58.8 Fat Free Mass 159.2 Visceral Fat Rating 16.0 Body Water % 54.8 Body Water Mass 119.4 Muscle Mass/Score 151.2 Basal Metabolic Rate/Score 2,119 Intake Visit Reasons: (OV) PO LSG 07/02/22 Allergies No Known Allergies Allergy (Verified 02/10/23 10:15) Medication List - Last Reconciled 02/10/23 by Cherise Edwards PA-C blood pressure test kit-large As directed hydrochlorothiazide 25 mg PO DAILY hydrocodone-acetaminophen 5-325 mg 1 tab PO TID PRN metoprolol succinate ER 100 mg PO DAILY syringe with needle As directed weekly for testosterone administration syringe with needle As directed testosterone cypionate 80 mg IM QWEEK tramadol 50 mg PO Q8H PRN HPI HPI Comments History of Present Illness Details Pt is now 7 months s/p LSG.[employer] weight of 292.8, weight at last appt in November was 214.1 - 4 lb weight gain. TBWL of 74.6 lbs or 25.4%. Exercise - now starting stationary bike - every day for 300 calories. Stopped losing weigth about 2 months ago. Meal plan: wakes at 6am 7am - Premier RTD shake with 4 oz coffee - over 30 minutes 1pm - 2 pieces of meat - 2 oz snacks on protein in afternoon 6 pm - 3 oz of meat and 3 of vegetable after dinner second shake Post op complications: none VERONICA: still on CPAP DM resolved HTN: still on meds Hyperlipidemia: none GERD: 0 Satisfaction with present condition - satisfied [facility] Medical History (Updated 08/19/22 @ 00:08 by Ely Meraz) DJD (degenerative joint disease) Sleep apnea with use of continuous positive airway pressure (CPAP) Morbid obesity Obesity Goiter Hypogonadism male Vitamin D deficiency HLD (hyperlipidemia) HTN (hypertension) T2DM (type 2 diabetes mellitus) Surgical History H/O arthroscopy of left knee Hx of appendectomy Family History Father Coronary artery disease Hypertension Mother Coronary artery disease Hypertension Stroke Brother Cancer Social History Household Members: Family Housing: House Are you a primary manager wound care to a significant other at home: No Do you presently have visiting nurse or other home services: No Alcohol intake: current Alcohol intake frequency: holidays/special occasions only Alcohol type: wine Patient Tobacco Use Status: Never used Tobacco Advance Directives Date on File: 07/04/22 service: No Assessment & Plan Assessment & Plan (1) S/P laparoscopic sleeve gastrectomy: Code(s): Z98.84 - Bariatric surgery status Plan: Pt has gained 4 lbs over last few months, he was not exercising and drinking artificial ly sweetened vitamin waater all day long. He will stop this drink, start exercising regualryl bike for 300 caloreis every other day now and increase to daily for 2,000 rafal burned per day. Meal plan 4 oz cofee 7a 9am - shake 1pm - 2 oz and 2 oz 6pm 3 oz and 3 oz shake at night. Labs done - all wnl. Next appt with me in 2 months, ecouraged to text me weekly wweight.s Patient is obese and is not considered stable at this time. I spent minutes in total with patient reviewing/updating records, examining the patient and counseling the patient on weight management as detailed above. Orders: Orders ECG 12 lead EKG Today - Bariatric surgery status FL upper GI w air Today - Bariatric surgery status US abdomen comp w elastography Today - Bariatric surgery status XR chest 2V Today - Bariatric surgery status Referrals Behavioral Health Referral - Bariatric surgery status Nutrition/Dietitian Referral - Bariatric surgery status Coding Level of Care Code Est Pt Level 4 (18118) Diagnoses S/P laparoscopic sleeve gastrectomy Z
[2023-02-10 10:16] VITALS: BP 158/83; PULSE 72; TEMP 36.4; O2SAT 97; BMI 35.2
== END 2023-02-10 10:57 | disposition home or self-care (01) ==
PROVIDERS: PCP Internal Medicine; Visit Provider Physician Assistant
DX: E66.09 Other obesity due to excess calories (principal); Z68.35 Body mass index [BMI] 35.0-35.9, adult; Z90.3 Acquired absence of stomach [part of]; Z98.84 Bariatric surgery status
CPT/HCPCS: 99214

== ENCOUNTER → 2023-02-10 10:05 | Outpatient (BNVA) | payer MEDICARE, MEDICAID, SELFPAY | PROVIDERS: PCP Internal Medicine; Visit Provider Physician Assistant | DX: E66.9 Obesity, unspecified (principal); Z98.84 Bariatric surgery status; Z68.35 Body mass index [BMI] 35.0-35.9, adult | CPT/HCPCS: 99212 ==

== ENCOUNTER 2023-02-24 11:11 | Outpatient (AMB) | payer MEDICARE, MEDICAID, SELFPAY ==
--- NOTE | 2023-02-24 15:05 | A.OFFWM_ITS ---
Intake Intake Visit Reasons: (OV) BH F/U Allergies No Known Allergies Allergy (Verified 02/10/23 10:15) PFSH Medical History (Updated 08/19/22 @ 00:08 by Ely Meraz) DJD (degenerative joint disease) Sleep apnea with use of continuous positive airway pressure (CPAP) Morbid obesity Obesity Goiter Hypogonadism male Vitamin D deficiency HLD (hyperlipidemia) HTN (hypertension) T2DM (type 2 diabetes mellitus) Surgical History H/O arthroscopy of left knee Hx of appendectomy Family History Father Coronary artery disease Hypertension Mother Coronary artery disease Hypertension Stroke Brother Cancer Social History Household Members: Family Housing: House Are you a primary school child care attendant to a significant other at home: No Do you presently have visiting nurse or other home services: No Alcohol intake: current Alcohol intake frequency: holidays/special occasions only Alcohol type: wine Patient Tobacco Use Status: Never used Tobacco Advance Directives Date on File: 07/04/22 service: No Behavioral Health Assessment Weight Management Therapy Therapy Notes Details Pt stated his recent struggles and last appointment progress. He stated that he often snacks on night but on salad with dressing or meat. Previous session: Pt reported doing well generally. Discussed how he is off of all diabetes medication and A1C is 5.6. Positive reinforcement and motivational interviewing used. Also blood pressure has been improving. he is struggling with back and knee pain since being off anit inflammatory due to surgery scheduled next week. Also head hunger . He talked about using meditation in the past for pain and it had helped me. We discussed some different ones combined with healing frequencies and breathing. Demetris already has some great coping mechanisms and listens to music in that frequency. Assessment & Plan Assessment & Plan (1) Binge-eating disorder, in partial remission, mild: Code(s): F50.81 - Binge eating disorder (2) Obesity: Code(s): E66.9 - Obesity, unspecified Qualifiers: Obesity type: due to excess calories Plan Patient is a pleasent 62 year old male who was joined by his during initial assessment. His expressed concerns about his emotional eating and believes it stems from unresolved issues from childhood. Patient became tearful when talking about his dad and brother. He has used food to cope with often and also has other healthy coping skills that he identified today. He is doing well in the program,motivated, consistent, and is interested in additional therapy to help resolve core issues. He is cleared for surgery and will be seen again. Pt has made great progress since starting the program and does very well in sessions. We disucssed different coping mechanisms that help with healing and dealing with head hunger. He will be seen again after surgery. Coding Level of Care Code Psytx 45 mins (71658) Diagnoses Binge-eating disorder, in partial remission, mild F50.81 Obesity E66.9 Obesity type: due to excess calories Time Spent (min) 40
== END 2023-02-24 15:05 | disposition home or self-care (01) ==
PROVIDERS: PCP Internal Medicine; Visit Provider Counselor Mental Health
DX: F50.81 Binge eating disorder (principal); E66.9 Obesity, unspecified
CPT/HCPCS: 90834

== ENCOUNTER → 2023-02-24 11:11 | Outpatient (BNVA) | payer OTHER, MEDICARE, MEDICAID, SELFPAY | PROVIDERS: PCP Internal Medicine; Visit Provider Counselor Mental Health ==

== ENCOUNTER → 2023-03-12 09:19 | Outpatient (BNVA) | payer MEDICARE, MEDICAID, SELFPAY | PROVIDERS: PCP Internal Medicine; Visit Provider Physician Assistant ==

== ENCOUNTER 2023-03-24 11:13 | Outpatient (AMB) | payer OTHER, MEDICARE, MEDICAID, SELFPAY ==
--- NOTE | 2023-03-24 13:04 | MHC.WMTHER ---
Intake Intake Visit Reasons: (OV) PO LSG 07/02/22 Allergies No Known Allergies Allergy (Verified 03/12/23 09:28) PFSH Medical History (Updated 03/13/23 @ 10:02 by Jazlyn Cristobal PA-C) DJD (degenerative joint disease) Sleep apnea with use of continuous positive airway pressure (CPAP) Morbid obesity Obesity Goiter Hypogonadism male Vitamin D deficiency HLD (hyperlipidemia) HTN (hypertension) T2DM (type 2 diabetes mellitus) Surgical History H/O arthroscopy of left knee Hx of appendectomy Family History Father Coronary artery disease Hypertension Mother Coronary artery disease Hypertension Stroke Brother Cancer Social History Household Members: Family Housing: House Are you a primary career center director to a significant other at home: No Do you presently have visiting nurse or other home services: No Alcohol intake: current Alcohol intake frequency: holidays/special occasions only Alcohol type: wine Patient Tobacco Use Status: Never used Tobacco Advance Directives Date on File: 07/04/22 service: No Behavioral Health Assessment Weight Management Therapy Therapy Notes Details Pt stated his recent struggles and last appointment progress. He stated that he often snacks on night but on salad with dressing or meat. He feels comfortable with his weight/body at its current state but understands that he should loose a little but more weight. He does not understand why he is not as he is eating a low calorie diet. He would like to exercise more but cannot because of his hip and back. Recently went to salt water float and sauna which helped and might go back to chiropractor. Previous session: Pt reported doing well generally. Discussed how he is off of all diabetes medication and A1C is 5.6. Positive reinforcement and motivational interviewing used. Also blood pressure has been improving. he is struggling with back and knee pain since being off anit inflammatory due to surgery scheduled next week. Also head hunger . He talked about using meditation in the past for pain and it had helped me. We discussed some different ones combined with healing frequencies and breathing. Demetris already has some great coping mechanisms and listens to music in that frequency. Assessment & Plan Assessment & Plan (1) Binge-eating disorder, in partial remission, mild: Code(s): F50.81 - Binge eating disorder (2) Obesity: Code(s): E66.9 - Obesity, unspecified Qualifiers: Obesity type: due to excess calories Plan Patient is a pleasent 62 year old male who was joined by his during initial assessment. His expressed concerns about his emotional eating and believes it stems from unresolved issues from childhood. Patient became tearful when talking about his dad and brother. He has used food to cope with often and also has other healthy coping skills that he identified today. He is doing well in the program,motivated, consistent, and is interested in additional therapy to help resolve core issues. He is cleared for surgery and will be seen again. Pt has made great progress since starting the program and does very well in sessions. We disucssed different coping mechanisms that help with healing and dealing with head hunger. He will be seen again after surgery. Coding Level of Care Code Psytx 45 mins (45637) Diagnoses Binge-eating disorder, in partial remission, mild F50.81 Obesity E66.9 Obesity type: due to excess calories Time Spent (min) 40
== END 2023-03-24 13:03 | disposition home or self-care (01) ==
PROVIDERS: PCP Internal Medicine; Visit Provider Counselor Mental Health
DX: F50.81 Binge eating disorder (principal); E66.9 Obesity, unspecified
CPT/HCPCS: 90834

== ENCOUNTER → 2023-03-24 11:13 | Outpatient (BNVA) | payer OTHER, MEDICARE, MEDICAID, SELFPAY | PROVIDERS: PCP Internal Medicine; Visit Provider Counselor Mental Health ==

== ENCOUNTER 2023-04-29 13:11 | Outpatient (REF) | payer MEDICARE, OTHER, MEDICAID, SELFPAY ==
[2023-04-29 14:44] LABS: MANUAL DIFF FLAG NO
[2023-04-29 14:48] LABS: Basophils Percent Auto 0.3 % (0-2); Eosinophils Absolute Auto 0.1 X10*3/uL (0.0-0.4); Hemoglobin 17.2 g/dl (14.0-18.0); Imm Gran Abs Auto 0.03 X10*3/uL (0.00-0.03); Imm Gran Pct Auto 0.4 % (0.0-0.4); Lymphocytes Absolute Auto 2.6 X10*3/uL (1.2-4.9); Lymphocytes Percent Auto 36.8 % (20-40); Mean Corpuscular HGB Conc 35.1 g/dl (31.0-36.0); Mean Corpuscular Hemoglobin 32.8 pg (27.0-33.0); Mean Corpuscular Volume 93.5 fL (80.0-98.0); Mean Platelet Volume 9.8 fL (9.4-12.4); Monocytes Absolute Auto 0.4 X10*3/uL (0.1-1.2); Monocytes Percent Auto 6.2 % (2-11); Neutrophils Absolute Auto 3.8 x10*3/uL (2.0-8.3); Neutrophils Percent Auto 54.3 % (45-73); Platelet Count 206 X10*3/uL (160-400); Red Blood Count 5.24 X10*6/uL (4.60-5.80); Red Cell Distribution Width 12.7 % (11.0-16.0)
[2023-04-29 15:00] LABS: Estimated Average Glucose 94 mg/dL; Hemoglobin A1c % 4.9 % (<6.0)
[2023-04-29 15:08] LABS: Alanine Aminotransferase 52 U/L (0-40); Alkaline Phosphatase 46 U/L (39-117); Anion Gap 11 (12-20); Aspartate Amino Transferase 33 U/L (5-37); Bilirubin Total 0.9 mg/dL (0.0-1.0); Blood Urea Nitrogen 36 mg/dL (9-16); Carbon Dioxide 28 mmol/L (22-29); Chloride 103 mmol/L (96-108); Estimated Glomerular Filt Rate > 60; Glucose Random 98 mg/dL (60-115); Potassium 3.2 mmol/L (3.3-5.1); Sodium 139 mmol/L (135-145); Total Protein 7.5 g/dL (6.5-8.0)
[2023-04-29 15:23] LABS: TSH reflex Free T4 2.77 uIU/mL (0.32-4.0)
[2023-04-30 08:20] LABS: ~HepC Num1 0.13 S/CO (0.00-0.79); ~Hepatitis C Antibody Nonreactive (Nonreactive)
[2023-05-01 19:44] LABS: HIV RNA PCR Qn Copies Not Detected Copies/mL; HIV RNA PCR Qn Log Copies Not Detected Log cps/mL
== END 2023-04-29 13:12 | disposition home or self-care (01) ==
LOC: HO.CHCLDS 13:11
PROVIDERS: Visit Provider Internal Medicine
DX: I10 Essential (primary) hypertension (principal)
CPT/HCPCS: 36415; 80053; 83036; 84443; 85025; 86803; 87536; 87900

== ENCOUNTER 2023-05-01 09:59 | Outpatient (AMB) | payer MEDICARE, MEDICAID, SELFPAY ==
--- NOTE | 2023-05-01 10:03 | A.OFFVIS_ITS ---
Intake VS Expanded 05/01/23 10:08 BP 144/81 H Blood Pressure Location Rt brachial Blood Pressure Position Sitting Pulse 85 Pulse Source Pulse Oximeter Temp 98.6 F Temperature Source Tympanic Pulse Oximetry 94 Oxygen Delivery Method Room Air Height 5 ft 4 in Weight 218 lb 9.6 oz BMI 37.5 Body Fat % 33.9 Body Fat Mass 74.0 Fat Free Mass 144.4 Visceral Fat Rating 11.0 Body Water % 46.8 Body Water Mass 102.2 Muscle Mass/Score 137.2 Basal Metabolic Rate/Score 1,945 Intake Visit Reasons: (OV) PO LSG 07/02/22 Allergies No Known Allergies Allergy (Verified 03/12/23 09:28) Medication List - Last Reconciled 05/01/23 by Cherise Edwards PA-C bisacodyl (Dulcolax (bisacodyl)) 20 mg (4 x 5 mg) PO ONCE 1 day blood pressure test kit-large As directed cetirizine 10 mg PO DAILY diclofenac sodium 1% 2 ea topical BID PRN diclofenac sodium 75 mg PO BID PRN docusate sodium (Colace) 200 mg (2 x 100 mg) PO BEDTIME hydrochlorothiazide 25 mg PO DAILY losartan 50 mg PO DAILY metoprolol succinate ER 100 mg PO DAILY syringe with needle As directed weekly for testosterone administration syringe with needle As directed testosterone cypionate 80 mg IM QWEEK tramadol 50 mg PO Q8H PRN HPI HPI Comments History of Present Illness Details Now 10 months s/p LSG, [employer] weight of 292.8 lbs, weight at appt 02/10 - 218 lbs (had regained 4 lbs). No weight loss since then, TBWL is 78 lbs. We had discussed meal plan of 2 shakes and 2 meals of 3/2 oz per day and regular exercise. Now has new med for HTN follow up with PCP. Had labs with PCP yesterday - all reviewed does not repeat in 2 months. Exercise- this week had nerve block for back pain. Treadmill - 3 d/week - speed 3, incline 6 - ?calories burned. Meal plan: 6am - Premier RTD adds 4 oz coffee and i ce = over 30 minutes 12 pm - another shake 6pm - yesterday 1 pork chop (4-6 oz) and 1/2 vegetables After dinner 3 rd shake 1 hour later protein bar Has cut back on splenda - now monk fruit Second coffee with half and half. [facility] Medical History (Updated 03/13/23 @ 10:02 by Jazlyn Cristobal PA-C) DJD (degenerative joint disease) Sleep apnea with use of continuous positive airway pressure (CPAP) Morbid obesity Obesity Goiter Hypogonadism male Vitamin D deficiency HLD (hyperlipidemia) HTN (hypertension) T2DM (type 2 diabetes mellitus) Surgical History H/O arthroscopy of left knee Hx of appendectomy Family History Father Coronary artery disease Hypertension Mother Coronary artery disease Hypertension Stroke Brother Cancer Social History Household Members: Family Housing: House Are you a primary career center director to a significant other at home: No Do you presently have visiting nurse or other home services: No Alcohol intake: current Alcohol intake frequency: holidays/special occasions only Alcohol type: wine Patient Tobacco Use Status: Never used Tobacco Advance Directives Date on File: 07/04/22 service: No Physical Exam Vital Signs: BMI result Body Mass Index 37.5 Assessment & Plan Assessment & Plan (1) Obesity: Code(s): E66.9 - Obesity, unspecified Qualifiers: Obesity type: due to excess calories Plan: no weight loss in 6 months, still not exercising. I recommend the same thisn at eaach visit and he does not do it. Meal plan 2 sahkes 1 meal of 4 oz nad 4 oz bar at night -- no more snakcing Exercise - start now with 250 rafal -- treadmill 10 rafal/minute - goal of 300 rafal 7 d/ week Does not need labs at 12 months. Next appt end of June with me Patient is obese and is not considered stable at this time. I spent 30 minutes in total with patient reviewing/updating records, examining the patient and counseling the patient on weight management as detailed above. (2) S/P laparoscopic sleeve gastrectomy: Code(s): Z98.84 - Bariatric surgery status Plan see above Coding Level of Care Code Est Pt Level 4 (62045) Diagnoses Obesity E66.9 Obesity type: due to excess calories S/P laparoscopic sleeve gastrectomy Z98.84
[2023-05-01 10:08] VITALS: BP 144/81; PULSE 85; TEMP 37; O2SAT 94; BMI 37.5
== END 2023-05-01 10:47 | disposition home or self-care (01) ==
PROVIDERS: PCP Internal Medicine; Referring Provider Internal Medicine; Visit Provider Physician Assistant
DX: E66.9 Obesity, unspecified (principal); Z98.84 Bariatric surgery status
CPT/HCPCS: 99214

== ENCOUNTER → 2023-05-01 09:59 | Outpatient (BNVA) | payer OTHER, MEDICARE, MEDICAID, SELFPAY | PROVIDERS: PCP Internal Medicine; Visit Provider Physician Assistant | DX: E66.9 Obesity, unspecified (principal); Z68.37 Body mass index [BMI] 37.0-37.9, adult; Z98.84 Bariatric surgery status | CPT/HCPCS: 99212 ==

== ENCOUNTER → 2023-05-05 10:53 | Outpatient (BNVA) | payer OTHER, MEDICARE, MEDICAID, SELFPAY | PROVIDERS: PCP Internal Medicine; Visit Provider Counselor Mental Health ==

== ENCOUNTER → 2023-05-05 10:53 | Outpatient (BNVA) | payer MEDICARE, OTHER, MEDICAID, SELFPAY | PROVIDERS: PCP Internal Medicine; Visit Provider Counselor Mental Health ==

== ENCOUNTER 2023-07-07 11:33 | Outpatient (AMB) | payer MEDICARE, MEDICAID, SELFPAY ==
--- NOTE | 2023-07-07 11:35 | A.OFFVIS_ITS ---
Intake VS Expanded 07/07/23 11:48 BP 150/75 H Blood Pressure Location Rt brachial Blood Pressure Position Sitting Pulse 96 Pulse Source Pulse Oximeter Temp 97.6 F Temperature Source Tympanic Pulse Oximetry 96 Oxygen Delivery Method Room Air Height 5 ft 6 in Weight 225 lb BMI 36.3 Body Fat % 31.7 Body Fat Mass 71.2 Fat Free Mass 153.6 Visceral Fat Rating 20.0 Body Water % 51.9 Body Water Mass 116.6 Muscle Mass/Score 146.2 Basal Metabolic Rate/Score 2,064 Intake Visit Reasons: (OV) PO LSG 07/02/22 Allergies No Known Allergies Allergy (Verified 03/12/23 09:28) Medication List - Last Reconciled 07/07/23 by Cherise Edwards PA-C blood pressure test kit-large As directed cetirizine 10 mg PO DAILY docusate sodium (Colace) 200 mg (2 x 100 mg) PO BEDTIME hydrochlorothiazide 25 mg PO DAILY losartan 100 mg PO DAILY metoprolol succinate ER 100 mg PO DAILY polyethylene glycol 3350 (Miralax) 17 grams PO DAILY syringe with needle As directed weekly for testosterone administration syringe with needle As directed testosterone cypionate 80 mg IM QWEEK tramadol 50 mg PO Q8H PRN HPI HPI Comments History of Present Illness Details 63 yo man now 1 year s/p LSG, 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 He has now had a 24 lb weight regain. Now suing a cane for ambulation. Has R hip worsening pain and now has L sided hip pain. He is still not exercising. I recommend the same things at each visit but he does not make these necessary changes. Meal plan - wakes a t5 - 5:30 am. Started this plan 3 weeks ago and has lost 2 lbs. 6am - Celebrate 4:1 2 scoops with UAM, w mi balck coffee 1-2 pm - 4 oz meat and 6 forks vegetable 5pm - same as earlier meal 7:30 am - Premeir shake Exercise - was using recumbent bike with out knee pain, none for 6 weeks due to hip pain. Post op complications: none VERONICA: still using CPAP, SS ordered DM: resolved HTN: still on meds Hyperlipidemia: none GERD: 0, Satisfaction with present condition - satisfied PENDING SALE TO [facility] Medical History (Updated 03/13/23 @ 10:02 by Jazlyn Cristobal PA-C) DJD (degenerative joint disease) Sleep apnea with use of continuous positive airway pressure (CPAP) Morbid obesity Obesity Goiter Hypogonadism male Vitamin D deficiency HLD (hyperlipidemia) HTN (hypertension) T2DM (type 2 diabetes mellitus) Surgical History (Updated 07/07/23 @ 11:45 by Crystal Veliz CMA) Hx of laparoscopic partial gastrectomy H/O arthroscopy of left knee Hx of appendectomy Family History Father Coronary artery disease Hypertension Mother Coronary artery disease Hypertension Stroke Brother Cancer Social History Household Members: Family Housing: House Are you a primary care assistant to a significant other at home: No Do you presently have visiting nurse or other home services: No Alcohol intake: current Alcohol intake frequency: holidays/special occasions only Alcohol type: wine Patient Tobacco Use Status: Never used Tobacco Advance Directives Date on File: 07/04/22 service: No Physical Exam GI Inspection: Yes incision (all completely healed) Palpation (GI): Soft to palpation, nontender, not rigid, no hernias and no masses Assessment & Plan Assessment & Plan (1) Obesity: Code(s): E66.9 - Obesity, unspecified Qualifiers: Obesity type: due to excess calories Plan: Pt plans is to go back to basics with fmela plan to stop and gaining - and continue to lose weight. We discussed that he must maje significanct changes to his lifestyle now or he will gain all of his weight back. Will have either two 4: shakes or Premeir shake with MVI per dya. 6am - shake with psyllium powder 10 am - shake 2pm- yogurt 5pm - 8 forks fo protienaand 6 forks of vegetables if needed at night - will have some raw vegetables - 1/2 cup Exercise - will make appt with Orthopedist. Follow up labs ordered through PCP I have added vitamin levels - Will have next appt cat MADERA in 6 weeks - to make sure that he is losing weight. Patient is obese and is not considered stable at this time. I spent 30 minutes in total with patient reviewing/updating records, examining the patient and counseling the patient on weight management as detailed above. Orders: Orders Vitamin B12 and Folate Today Z98.84 - Bariatric surgery status Vitamin D 25-OH Total Today Z90.3 - Acquired absence of stomach [part of] Vitamin A Today Z98.84 - Bariatric surgery status Vitamin B1 Today Z98.84 - Bariatric surgery status Coding Level of Care Code Est Pt Level 4 (55777) Diagnoses Obesity E66.9 Obesity type: due to excess calories
[2023-07-07 11:48] VITALS: BP 150/75; PULSE 96; TEMP 36.4; O2SAT 96; BMI 36.3
== END 2023-07-07 12:21 | disposition home or self-care (01) ==
PROVIDERS: PCP Internal Medicine; Visit Provider Physician Assistant
DX: E66.9 Obesity, unspecified (principal)
CPT/HCPCS: 99214

== ENCOUNTER → 2023-07-07 11:33 | Outpatient (BNVA) | payer OTHER, MEDICARE, MEDICAID, SELFPAY | PROVIDERS: PCP Internal Medicine; Visit Provider Physician Assistant | DX: E66.9 Obesity, unspecified (principal); Z68.36 Body mass index [BMI] 36.0-36.9, adult; Z98.84 Bariatric surgery status | CPT/HCPCS: 99212 ==

== ENCOUNTER 2023-07-25 06:07 | Outpatient (REF) | payer MEDICARE, SELFPAY ==
[2023-07-25 07:48] LABS: Cholesterol 113 mg/dL (<200); HDL Cholesterol 32 mg/dL (>40); LDL Cholesterol Calculated 69 mg/dL (<100); Potassium 3.9 mmol/L (3.3-5.1); Triglycerides 61 mg/dL (<150)
[2023-07-25 08:31] LABS: Vitamin D 25-OH Total 43.6 ng/mL (>30)
[2023-07-25 08:34] LABS: Vitamin B12 1009 pg/mL (200-900)
[2023-07-30 05:58] LABS: Vitamin A 44 mcg/dL (38-98)
[2023-07-30 20:08] LABS: Testosterone, Free 353.8 pg/mL (35.0-155.0); Testosterone, Total 1330 ng/dL (250-1100)
[2023-07-30 20:48] LABS: Venous Lead 4.3 mcg/dL (<3.5)
[2023-07-31 16:28] LABS: Vitamin B1 28 nmol/L (8-30)
[2023-08-01 09:23] LABS: Follicle Stimulating Hormone <0.7 mIU/mL (1.4-12.8); Lutenizing Hormone <0.2 mIU/mL (1.6-15.2); Prolactin Undiluted 6.3 ng/mL (2.0-18.0)
== END 2023-07-25 06:08 | disposition home or self-care (01) ==
LOC: HO.LAB 06:07
PROVIDERS: Absent Provider Physician Assistant; PCP Internal Medicine; Visit Provider Internal Medicine
DX: Z77.011 Contact with and (suspected) exposure to lead (principal); E87.6 Hypokalemia; I10 Essential (primary) hypertension; R79.89 Other specified abnormal findings of blood chemistry; Z90.3 Acquired absence of stomach [part of]; Z98.84 Bariatric surgery status
CPT/HCPCS: 36415; 80061; 82306; 82607; 82746; 83001; 83002; 83655; 84132; 84146; 84402; 84403; 84425; 84590

== ENCOUNTER 2023-08-18 11:39 | Outpatient (AMB) | payer MEDICARE, MEDICAID, SELFPAY ==
--- NOTE | 2023-08-18 11:41 | MHC.OFFVISWM ---
VS Expanded 08/18/23 11:48 BP 172/84 H Blood Pressure Location Rt brachial Blood Pressure Position Sitting Pulse 66 Pulse Source Pulse Oximeter Temp 97.2 F Temperature Source Temporal Artery Scan Pulse Oximetry 96 Oxygen Delivery Method Room Air Height 5 ft 6 in Weight 221 lb 6.4 oz BMI 35.7 Body Fat % 28.9 Body Fat Mass 64.0 Fat Free Mass 157.4 Visceral Fat Rating 18.0 Body Water % 53.0 Body Water Mass 117.2 Muscle Mass/Score 149.6 Basal Metabolic Rate/Score 2,103 Intake Visit Reasons: (OV) PO LSG 07/02/22 Chief Meteorologist Required: No Allergies No Known Allergies Allergy (Verified 08/18/23 11:57) Medication List - Last Reconciled 08/18/23 by CASSY Ellsworth blood pressure test kit-large As directed cetirizine 10 mg PO DAILY docusate sodium (Colace) 200 mg (2 x 100 mg) PO BEDTIME hydrochlorothiazide 25 mg PO DAILY losartan 100 mg PO DAILY metoprolol succinate ER 100 mg PO DAILY polyethylene glycol 3350 (Miralax) 17 grams PO DAILY syringe with needle As directed weekly for testosterone administration syringe with needle As directed testosterone cypionate 80 mg IM QWEEK tramadol 50 mg PO Q8H PRN HPI Comments Details: This?a?63?yo male who is s/p LSG without hiatal hernia repair on?07/02/2022. Presents for 1 year 2 month post op visit. Weight today is 221.4 pounds, with a BMI of 35.7. There has been a 71.4 pound weight loss,(initial weight 292.8 pounds) since starting the program on 04/22/2022 reflecting a 24.3 % total body weight loss and a weight loss of 37.9 pounds since surgery (operative weight 259.3 pounds) reflecting a 14.6 % TBWL since surgery. No complaints of nausea, emesis, abdominal pain or reflux. Reports infrequent but normal bowel movements every [] days and uses stool softeners regularly. Present meal plan includes: 6am celebrate 4 in 1, 2 scoops in 6 oz almond milk and black coffee 10am premier protein RTD 2pm 3-4 forks protein 6pm 6-7 forks protein and 6-7 veg 9pm czech yogurt, another shake Drinking 80 oz water ? Exercise routine includes: [employer] gym 3 x per week treadmill 30 min, 250 calories. [facility] Medical History (Updated 03/13/23 @ 10:02 by Jazlyn Cristobal PA-C) DJD (degenerative joint disease) Sleep apnea with use of continuous positive airway pressure (CPAP) Morbid obesity Obesity Goiter Hypogonadism male Vitamin D deficiency HLD (hyperlipidemia) HTN (hypertension) T2DM (type 2 diabetes mellitus) Surgical History (Updated 07/07/23 @ 11:45 by Crystal Veliz CMA) Hx of laparoscopic partial gastrectomy H/O arthroscopy of left knee Hx of appendectomy Family History Father Coronary artery disease Hypertension Mother Coronary artery disease Hypertension Stroke Brother Cancer Social History Household Members: Family Housing: House Are you a primary career coach to a significant other at home: No Do you presently have visiting nurse or other home services: No Alcohol intake: current Alcohol intake frequency: holidays/special occasions only Alcohol type: wine Patient Tobacco Use Status: Never used Tobacco Advance Directives Date on File: 07/04/22 service: No Physical Exam Const General: healthy appearing and no acute distress Resp Effort & Inspection: normal respiratory effort Auscultation: clear to auscultation bilaterally Cardio Rate: regular rate Rhythm: regular rhythm GI Auscultation: normal bowel sounds Extrem General: Yes normal to inspection Assessment & Plan Assessment & Plan (1) S/P laparoscopic sleeve gastrectomy: Code(s): Z98.84 - Bariatric surgery status Category: Surgical Plan: Change meal plan and exercise plan Premier protein, ready to drink, +12 oz of unsweetened almond milk to equal 24 oz of liquid split in half 12 oz 69 12 oz 10-1 2 pm 3 forks protein 6 pm 6 forks protein 6 forks veggies 9pmGreek yogurt Gym, [employer], 5 days per week Weight is 20 minutes Swim 6 laps increasing by 1 lap weekly Stationary bike 250 calories Treadmill 150 calories Return to clinic 4 weeks Add bariatric fusion multivitamin chew, 2 daily and calcium chew, 1 daily
[2023-08-18 11:48] VITALS: BP 172/84; PULSE 66; TEMP 36.2; O2SAT 96; BMI 35.7
== END 2023-08-18 12:12 | disposition home or self-care (01) ==
PROVIDERS: PCP Internal Medicine; Referring Provider Internal Medicine; Visit Provider Physician Assistant Surgical
DX: E66.9 Obesity, unspecified (principal); Z68.35 Body mass index [BMI] 35.0-35.9, adult; Z90.3 Acquired absence of stomach [part of]; Z98.84 Bariatric surgery status
CPT/HCPCS: 99213

== ENCOUNTER → 2023-08-18 11:39 | Outpatient (BNVA) | payer MEDICARE, SELFPAY | PROVIDERS: PCP Internal Medicine; Visit Provider Physician Assistant Surgical | DX: Z98.84 Bariatric surgery status (principal) | CPT/HCPCS: 99212 ==

== ENCOUNTER → 2023-09-22 11:25 | Outpatient (BNVA) | payer MEDICARE, SELFPAY | PROVIDERS: PCP Internal Medicine; Visit Provider Physician Assistant Surgical ==

== ENCOUNTER 2024-06-03 08:04 | Outpatient (REF) | payer MEDICARE, SELFPAY ==
--- OUTSIDE RECORDS SUMMARY | 2024-06-03 08:08 | XMS_ITS | Encounter Summary ---
Author Organization [employer] Address [address] [place] [address] Care Team Providers Care Ornamental Iron Erector Name Role Phone Christopher Boogie MD Primary Care Prov ider Encounter Details Date Type Department Care Team (Late st Contact Info) Description 05/07/2024 Telephone [facility] [address], [place] [phone] Christopher Boogie MD [address] [place], [place] [phone] Social History Tobacco Use Types Packs/Day Years Used Date Smoking Tobacco: Never Smokeless Tobacco: Never Alcohol Use Standard Drinks/Week Comments Never 0 (1 standard drink = 0.6 oz pur e alcohol) Depression Answer Date Recorded Patient Health Questionnaire-9 Score 0 07/30/2022 Housing Stability Answer Date Recorded What is your housing situation today? I have devicory rutherford 01/29/[address] you li ve. Do you have problems with any of the following? None of the above 01/29/2023 Food Insecurity Answer Date Recorded Within the past 12 months, y ou worried that your food would run out before you got money to buy more: Never True 01/29/2023 Within the past 12 months,th e food you bought just didn't last and you didn't have enough money to get more: Never True Transportation Answer Date Recorded In the past 12 months, has l ack of transportation kept you from medical appts, meetings, work or from getting things needed for daily living? No 01/29/2023 Utilities Answer Date Recorded In the past 12 months, has t he electric, gas, oil or water company threatened to shut off services in your home? No 01/29/2023 Depression Answer Date Recorded Patient Health Questionnaire-2 Score 0 04/21/2023 Sex and Gender Information Value Date Recorded Sex Assigned at Male 02/11/2022 10:21 AM EDT Legal Sex Male 10:21 AM EDT Gender Identity Choose not to disclose 10:21 AM EDT Sexual Orientation Choose not to disclose 2021 10:21 AM EDT documented as of this encounter Miscellaneous Notes * Telephone Encounter - Lamar Haynes [place] - 05/07/2024 10:35 AM EST Called pt to schedule fu bp appt with Dr. Garcia in may. Pt didn't answer, lvm to call office back. documented in this encounter Plan of Treatment Not on file documented as of this encounter Visit Diagnoses Not on filedocumented in this encounter Additional Health Concerns Assessment Noted Time PHQ-9 Depression Total Score: 0 07/31/19 23 9:56 AM EDT documented as of this encounter Care Teams Ornamental Iron Erector Relationship Specialty Start Date End Date Christopher Boogie MD [address] [place] [address] [place] [address] PCP - General Internal Medicine 09/07/19 documented as of this encounter
--- OUTSIDE RECORDS SUMMARY | 2024-06-03 08:08 | XMS_ITS | Encounter Summary ---
Author Organization [employer] Address [address] [place] [address] Care Team Providers Care Telemetry Registered Nurse Name Role Phone Christopher Boogie MD Primary Care Prov ider Encounter Details Date Type Department Care Team (Latest Contact Info) Description 05/24/2024 Travel Social History Tobacco Use Types Packs/Day Years Used Date Smoking Tobacco: Never Smokeless Tobacco: Never Alcohol Use Standard Drinks/Week Comments Never 0 (1 standard drink = 0.6 oz pur e alcohol) Depression Answer Date Recorded Patient Health Questionnaire-9 Score 0 07/30/2022 Housing Stability Answer Date Recorded What is your housing situation today? I have devi rutherford 05/17/[address] you li ve. Do you have problems with any of the following? None of the above 05/17/2024 Food Insecurity Answer Date Recorded Within the past 12 months, y ou worried that your food would run out before you got money to buy more: Never True 05/17/2024 Within the past 12 months,th e food you bought just didn't last and you didn't have enough money to get more: Never True 06/2024 Transportation Answer Date Recorded In the past 12 months, has l ack of transportation kept you from medical appts, meetings, work or from getting things needed for daily living? No 05/17/2024 Utilities Answer Date Recorded In the past 12 months, has t he electric, gas, oil or water company threatened to shut off services in your home? No 05/17/2024 Depression Answer Date Recorded Patient Health Questionnaire-2 Score 0 04/21/2023 Internet Access Answer Date Recorded Internet Access Q1 Yes 05/17/2024 Internet Access Q2 Not on file 05/17/2024 Sex and Gender Information Value Date Recorded Sex Assigned at Male 02/11/2022 10:21 AM EDT Legal Sex Male 10:21 AM EDT Gender Identity Choose not to disclose 10:21 AM EDT Sexual Orientation Choose not to disclose 2021 10:21 AM EDT documented as of this encounter Plan of Treatment Not on file documented as of this encounter Visit Diagnoses Not on filedocumented in this encounter Additional Health Concerns Assessment Noted Time PHQ-9 Depression Total Score: 0 07/31/19 23 9:56 AM EDT documented as of this encounter Care Teams Telemetry Registered Nurse Relationship Specialty Start Date End Date Christopher Boogie MD [address] [place] [id number] PCP - General Internal Medicine 09/07/19 documented as of this encounter
--- OUTSIDE RECORDS SUMMARY | 2024-06-03 08:08 | XMS_ITS | Encounter Summary ---
Author Organization [employer] Address [address] [facility] [address] [place] [address] Care Team Providers Care Sports Editor Name Role Phone Christopher Boogie MD Primary Care Prov ider Encounter Details Date Type Department Care Team ([facility] st Contact Info) Description 08/20/2022 Orders Only [facility] [address] [place], [place] [phone] Christopher Boogie MD [address] [place], [place] [phone] Chronic midline low back pain with bilateral sciatica (Primary Dx) Social History Tobacco Use Types Packs/Day Years Used Date Smoking Tobacco: Never Assessed Depression Answer Date Recorded Patient Health Questionnaire-9 Score 0 07/30/2022 Depression Answer Date Recorded Patient Health Questionnaire-2 Score 0 07/30/2022 Sex and Gender Information Value Date Recorded Sex Assigned at Male 02/11/2022 10:21 AM EDT Legal Sex Male 10:21 AM EDT Gender Identity Choose not to disclose 10:21 AM EDT Sexual Orientation Choose not to disclose 2021 10:21 AM EDT COVID-19 Exposure Response Date Recorded In the last 10 days, have yo u been in contact with someone who was confirmed or suspected to have Coronavirus/COVID-19? No / Unsure 08/21/2022 8:36 AM EDT documented as of this encounter Plan of Treatment Not on file documented as of this encounter Visit Diagnoses Diagnosis Chronic midline low back pain with bilateral sciatica- Primary documented in this encounter Additional Health Concerns Assessment Noted Time PHQ-9 Depression Total Score: 0 07/31/19 23 9:56 AM EDT documented as of this encounter Care Teams Sports Editor Relationship Specialty Start Date End Date GarciaChristopher Kurtz MD [address] [place] [id number] PCP - General Internal Medicine 09/07/19 documented as of this encounter
--- OUTSIDE RECORDS SUMMARY | 2024-06-03 08:08 | XMS_ITS | Encounter Summary ---
Author Organization [employer] Address [address] [facility] [address] [place] [address] Care Team Providers Care Admissions Assistant Name Role Phone Christopher Boogie MD Primary Care Prov ider Encounter Details Date Type Department Care Team (Latest Contact Info) Description 05/24/2024 9:30 AM EST Office Visit [facility] [address] [place], [place] [phone] Christopher Boogie MD [address] [place] [address] Mixed hyperlipidemia (Primary Dx); Primary hypertension; Dietary counseling; Exercise counseling; Obesity, morbid (CMS/HCC); Uncontrolled type 2 diabetes mellitus with hyperglycemia (CMS/[facility]); Vitamin D deficiency Social History Tobacco Use Types Packs/Day Years [...] AM EDT documented as of this encounter Last Filed Vital Signs Vital Sign Reading Time Taken Comments Blood Pressure 148/92 05/24/2024 9:55 AM EST Pulse 68 05/24/2024 9:55 AM EST Temperature 37.1 ??C (98.7 ??F) 05/24/2024 9:55 AM ES T Respiratory Rate 16 05/24/2024 9:55 AM EST Oxygen Saturation - - Inhaled Oxygen Concentration - - Weight 105 kg (232 lb) 05/24/2024 9:55 AM EST Height 170.2 cm (5' 7 ) 05/24/2024 9:55 AM EST Body Mass Index 36.34 05/24/2024 9:55 AM EST documented in this encounter Progress Notes * Christopher Krishnan MD - 05/24/2024 9:30 AM EST Subjective Patient ID: Demetris Byrd is a 64 y.o. adult who presents for No chief complaint on file.. Hypertension This is a chronic problem. The problem is controlled. Pertinent negatives include no chest pain, headaches, palpitations, peripheral edema or shortness of breath. Review of Systems Respiratory: Negative for shortness of breath. Cardiovascular: Negative for chest pain and palpitations. Neurological: Negative for headaches. Objective Physical Exam Constitutional: Appearance: Normal appearance. Cardiovascular: Rate and Rhythm: Normal rate. Heart sounds: No murmur heard. Pulmonary: Effort: Pulmonary effort is normal. No respiratory distress. Breath sounds: No stridor. No wheezing or rhonchi. Abdominal: General: Abdomen is flat. There is no distension. Tenderness: There is no abdominal tenderness. There is no rebound. Neurological: General: No focal deficit present. Mental Status: He is alert and oriented to person, place, and time. Psychiatric: Mood and Affect: Mood normal. Behavior: Behavior normal. Assessment/Plan Problem List Items Addressed This Visit Hyperlipidemia - Primary RESOLVED: Uncontrolled type 2 diabetes mellitus with hyperglycemia (CMS/HCC) Resolved, he underwent sleeve gastrectomy, his A1c is 5.5%, keep low carb/no sugar diet, continue healthy diet as instructed, Hypertension Above target, but he refers has been off hydrochlorothiazide for the past 3 days, will send new refill, keep bp log, keep low sodium diet, exercise as tolerated, Relevant Medications hydroCHLOROthiazide (HYDRODiuril) 25 MG tablet Other Relevant Orders CBC auto differential Comprehensive Metabolic Panel Iron And Total Iron Binding Capacity Vitamin B12 (Cobalamin) and Folate Panel, Serum Vitamin D, 25-Hydroxy, Total, Immunoassay Lead, Venous TSH W/Reflex to FT4 Testosterone, Free (Dialysis) And Total, MS Lipid Panel, Standard HIV-1/2 Antigen and Antibodies, Fourth Generation, with Reflexes Vitamin D deficiency Obesity, morbid (CMS/HCC) Anish has been stuck in the same weight, he wants to try phentermine with topamax, risk vs benefits discussed, will send rx Other Visit Diagnoses Dietary counseling Exercise counseling documented in this encounter Miscellaneous Notes * Assessment & Plan Note - Christopher Krishnan MD - 05/24/2024 10:37 AM ESTAssociated Problem(s): Obesity, morbid (CMS/HCC) Anish has been stuck in the same weight, he wants to try phentermine with topamax, risk vs benefits discussed, will send rx * Assessment & Plan Note - Christopher Krishnan MD - 05/24/2024 10:37 AM ESTAssociated Problem(s): Uncontrolled type 2 diabetes mellitus with hyperglycemia (CMS/HCC) (Resolved05/24/2024) Resolved, he underwent sleeve gastrectomy, his A1c is 5.5%, keep low carb/no sugar diet, continue healthy diet as instructed, * Assessment & Plan Note - Christopher Krishnan MD - 05/24/2024 10:36 AM ESTAssociated Problem(s): Hypertension Above target, but he refers has been off hydrochlorothiazide for the past 3 days, will send new refill, keep bp log, keep low sodium diet, exercise as tolerated, documented in this encounter Plan of Treatment Scheduled Orders Name Type Priority Associated Diagnoses Orde r Schedule CBC auto differential Lab Routine Primary hypertension Expected: 05/24/2024 (Approximate), Expires: 05/24/2025 Comprehensive Metabolic Panel Lab Routine Primary hypertension Expected: 05/24/2024 (Approximate), Expires: 05/24/2025 Iron And Total Iron Binding Capacity Lab Routine Primary hypertension Expected: 05/24/2024, Expires: 05/24/2025 Vitamin B12 (Cobalamin) and Folate Panel, Serum Lab Routine Primary hypertension Expected: 05/24/2024 (Approximate), Expires: 05/24/2025 Vitamin D, 25-Hydroxy, Total, Immunoassay Lab Routine Primary hypertension Expected: 05/24/2024 (Approximate), Expires: 05/24/2025 Lead, Venous Lab Routine Primary hypertension Expected: 05/24/2024 (Approximate), Expires: 05/24/2025 TSH W/Reflex to FT4 Lab Routine Primary hypertension Expected: 05/24/2024 (Approximate), Expires: 05/24/2025 Testosterone, Free (Dialysis) And Total, MS Lab Routine Primary hypertension Expected: 05/24/2024 (Approximate), Expires: 05/24/2025 Lipid Panel, Standard Lab Routine Primary hypertension Expected: 05/24/2024 (Approximate), Expires: 05/24/2025 HIV-1/2 Antigen and Antibodies, Fourth Generation, with Reflexes Lab Routine Primary hypertension Expected: 05/24/2024 (Approximate), Expires: 05/24/2025 documented as of this encounter Visit Diagnoses Diagnosis Mixed hyperlipidemia- Primary Primary hypertension Unspecified essential hypertension Dietary counseling Dietary surveillance and counseling Exercise counseling Obesity, morbid ([facility]) Morbid obesity Uncontrolled type 2 diabetes mellitus with hyperglycemia ([facility]) Vitamin D deficiency documented in this encounter Additional Health Concerns Assessment Noted Time PHQ-9 Depression Total Score: 0 07/31/19 23 9:56 AM EDT documented as of this encounter Care Teams Admissions Assistant Relationship Specialty Start Date End Date Christopher Boogie MD [address] [place] [id number] PCP - General Internal Medicine 09/07/19 documented as of this encounter
--- OUTSIDE RECORDS SUMMARY | 2024-06-03 08:08 | XMS_ITS | Clinical Summary ---
Author Organization [employer] Address [address] [facility] 7t [place] [address] Care Team Providers Care Employee Adviser Name Role Phone Christopher Boogie MD Primary Care Prov ider Allergies No known active allergies Medications fluticasone (Flonase) 50 MCG/ACT nasal spray inhale 1 spray by intranasal route every day in each nostril as needed for allergies 020 Active traMADol (Ultram) 50 MG tablet take 1 Tablet by Oral route every 6 hours Active Blood Pressure Monitor [facility] Check blood pressure on arm as directed 022 Active pantoprazole (ProtoNix) 40 MG EC tablet TAKE ONE TABLET DAILY 023 Active sucralfate (Carafate) 1 GM/10ML suspension TAKE 10 ml's BY MOUTH TWICE DAILY 023 Active clotrimazole (Lotrimin) 1 % cream apply by topical route 2 times every day to the affected and surrounding areas of skin in the morning and evening as needed for foot rash 60 g 1 024 Active losartan (Cozaar) 100 MG tablet Take 1 tablet (100 mg) by mouth in the morning. 90 tablet 3 024 Active Bisacodyl EC 5 MG EC tablet TAKE FOUR TABLETS BY MOUTH upon awakening followed by large GLASS of WATER ON DAY ONE FOR COLONOSCOPY prep 023 Active cyclobenzaprine (Flexeril) 5 MG tablet TAKE 1 TABLET BY MOUTH 3 TIMES A DAY NEEDED MUSCLE SPASM 023 Active diclofenac (Voltaren) 75 MG EC tablet Take 75 mg by mouth if needed in the morning and at bedtime. 024 Active Diclofenac Sodium 1 % gel APPLY 1 APPLICATION ON THE SKIN TWICE A DAY NEEDED APPLY 2 GRAMS 023 Active docusate sodium (Colace) 100 MG capsule TAKE TWO CAPSULES AT BEDTIME Active polyethylene glycol, PEG, 3350 (Glycolax) 17 GM/SCOOP powder STIR 17GM INTO 8 OUNCES OF WATER, OR JUICE, AND DRINK DAILY NEEDED / DIRECTED 024 Active topiramate (Topamax) 25 MG tablet Take 25 mg by mouth if needed each day. 023 Active cetirizine (ZyrTEC) 10 MG tablet Take 1 tablet (10 mg) by mouth Once per day. 90 tablet 2 024 Active B-D 3CC LUER-ALLYN SYR 22GX1 22G X 1 3 ML misc Use weekly for testosterone administration 14 each Active metoprolol succinate XL (Toprol-XL) 100 MG 24 hr tablet TAKE ONE TABLET EVERY MORNING, DO NOT BREAK, CRUSH, DISSOLVE OR CHEW 90 tablet 3 Active phentermine 15 MG capsule Take 1 capsule (15 mg) by mouth before breakfast. 30 capsule 025 2024 Active topiramate (Topamax) 50 MG tablet Take 1 tablet (50 mg) by mouth 2 times daily. 60 tablet 1 025 Active hydroCHLOROthia zide (HYDRODiuril) 25 MG tabletIndicatio ns:Primary hypertension Take 1 tablet (25 mg) by mouth in the morning. 90 tablet 3 025 Active testosterone cypionate (Depo-Testoster one) 200 MG/ML injectionIndica tions:Hypogonad ism in male INJECT 0.5 ML INTO THE MUSCLES EVERY 14 DAYS 2 mL 2 025 Active testosterone cypionate (Depo-Testoster one) 200 MG/ML injectionIndica tions:Hypogonad ism in male INJECT 0.5 ML INTO THE MUSCLES EVERY 14 DAYS 2 mL 2 024 2024 Discontinued hydroCHLOROthia zide (HYDRODiuril) 25 MG tabletIndicatio ns:Primary hypertension TAKE ONE TABLET EVERY MORNING 90 tablet 3 025 2024 Discontinued(R eorder (will not trigger notification to Pharmacy)) Active Problems Problem Noted Date Diagnosed Date Obesity, morbid 05/24/2024 Assessment & Plan (05/24/2024 10:37 AM EST): Anish has been stuck in the same weight, he wants to try phentermine with topamax, risk vs benefits discussed, will send rx Chronic right shoulder pain 06/10/2023 Overview (06/10/2023): Written consent obtained for ear acupuncture. Ears prepped with alcohol pad. Five ear points needled bilaterally: Sympathetic, Coreas Men, Kidney, Liver and Lung. Treatment duration: 30 minutes. Good hemostasis. Patient tolerated well. Follow up weekly for repeat acupuncture treatments as desired. Hypokalemia 05/29/2023 Assessment & Plan (05/29/2023 10:24 PM EST): Will order new blood work Acute recurrent maxillary sinusitis 04/21/2023 Assessment & Plan (04/21/2023 2:54 PM EST): Will provide augmentin no recent episode of fever, call back if not improving Vaccination refused by patient 04/21/2023 Physical exam 04/21/2023 Assessment & Plan (04/21/2023 2:57 PM EST): Will place new labs order Eye exam scheduled for this week Colonoscopy scheduled for 07/2023 COVID 10/21/2022 Assessment & Plan (10/21/2022 11:14 AM EDT): Symptoms started last Friday, denied shortness of breath, current symptoms are coughing, headache, congestion, itchy throat. Offered paxlovid, risk vs benefits discussed/side effects. Call back or visit er in case of worsening symptoms. Acute cough 10/21/2022 Acute right-sided low back pain with right-sided sciatica 08/21/2022 Assessment & Plan (08/21/2022 9:22 AM EDT): Pain started last , he is chronically on tramadol for his knee, he recently had gastric bypass, denied trauma, no neurologic deficit, no urinary retention/incontinence. Will avoid NSAID/steroids due to recent abdominal surgery, started on oxycodone #15 pills, told to hold tramadol, he has follow up with knee specialist tomorrow. Told to rest apply cold pads. Will order a MRI and will refer to ortho for evaluation Screening for colon cancer 07/30/2022 Assessment & Plan (04/21/2023 2:53 PM EST): Refers has appointment on 07/2023 Assessment & Plan (07/30/2022 10:29 AM EDT): Will refer for screening colonoscopy, no alarm signs Pain 04/04/2022 Hypertension 03/27/2022 Assessment & Plan (05/24/2024 10:36 AM EST): Above target, but he refers has been off hydrochlorothiazide for the past 3 days, will send new refill, keep bp log, keep low sodium diet, exercise as tolerated, Assessment & Plan (05/29/2023 10:23 PM EST): Not at target,, at home has been running above 140/90, will increase losartan to 100mg, follow up in 1 month Assessment & Plan (04/21/2023 2:53 PM EST): Not controlled, will start on losartan 50mg, continue hydrochlorothiazide and metoprolol, will follow up in 1 month Assessment & Plan (07/30/2022 10:31 AM EDT): Controlled, currently on hydrochlorothiazide and metoprolol, target <140/90, no reported chest pain/shorthness of breath episode Assessment & Plan (05/12/2022 7:35 PM EST): Not controlled, he is on multiple antihypertensive medication, referred previously to nephrology, phone number provided for follow up, Will follow up in office in may Vitamin D deficiency 03/27/2022 Sprain of unspecified site of right knee, initia l encounter 03/18/2022 Chronic back pain 01/02/2018 Decreased testosterone level 01/02/2018 Assessment & Plan (05/29/2023 10:23 PM EST): Will order new testosterone levels, Hyperlipidemia 01/02/2018 Assessment & Plan (07/30/2022 10:32 AM EDT): Controlled, off statin therapy, will follow up in 3 months Nonalcoholic steatohepatitis 01/02/2018 Obstructive sleep apnea syndrome 01/02/2018 Assessment & Plan (04/21/2023 2:52 PM EST): Patient has lost almost 90lbs since sleeve gastrectomy, will order new sleep study test to evaluate if cpap still needed and adjustment of parameter if needed Seasonal allergies 01/02/2018 Resolved Problems Problem Noted Date Diagnosed Date Resolved Date Opioid dependence 01/02/2018 05/24/2024 Uncontrolled type 2 diabetes mellitus with hyperglycemia 01/02/2018 05/24/2024 Assessment & Plan (05/24/2024 10:37 AM EST): Resolved, he underwent sleeve gastrectomy, his A1c is 5.5%, keep low carb/no sugar diet, continue healthy diet as instructed, Assessment & Plan (07/30/2022 10:31 AM EDT): Controlled, off DM medications, continue diet and exercise as tolerated, will follow up in 3 months Encounters Date Type Department Care Team Description 05/31/2024 Refill [facility] [address] [place] [address] Christopher Boogie MD Hypogonadism in male 05/24/2024 9:30 AM EST Office Visit [facility] [address] [place] [address] Christopher Boogie MD Mixed hyperlipidemia (Primary Dx); Primary hypertension; Dietary counseling; Exercise counseling; Obesity, morbid (CMS/HCC); Uncontrolled type 2 diabetes mellitus with hyperglycemia (CMS/HCC); Vitamin D deficiency 05/24/2024 Travel 05/17/2024 Patient Outreach [facility] [address] [place] [address] Christopher Boogie MD Pre-visit Planning (SDOH negative, Tobacco screening negative/) 05/07/2024 Telephone [facility] [address] [place] [address] Christopher Boogie MD 05/04/2024 Refill [facility] [address] [place], [place] [phone] Christopher Boogie MD Primary hypertension 03/03/2024 Refill [facility] [address] [place], [place] [phone] Christopher Boogie MD Hypogonadism in male from Last 3 Months Immunizations Name Administration Dates Next Due Influenza, IIV3, injectable 04/16/2011 Influenza, Split (incl. purified surface antigen ) 03/24/2012 Influenza, Unspecified 04/16/2011 Pneumococcal Polysaccharide PPSV23 06/30/2009 TD (adult), 2 Lf tetanus tox oid, preservative free, adsorbed 06/30/2009 Tdap 10/22/2021 Social History Tobacco Use Types Packs/Day Years Used Date Smoking Tobacco: Never Smokeless Tobacco: Never Tobacco Cessation:Counseling Given: Not Answered Alcohol Use Standard Drinks/Week Comments Never 0 (1 standard drink = 0.6 oz pur e alcohol) Depression Answer Date Recorded Patient Health Questionnaire-9 Score 0 07/30/2022 Housing Stability Answer Date Recorded What is your housing situation today? I have devicory rutherford 05/17/[address] you [...] not to disclose 2021 10:21 AM EDT Last Filed Vital Signs Vital Sign Reading [...] Mass Index 36.34 05/24/2024 9:55 AM EST Plan of Treatment Health Maintenance Due Date Last Done Comments CT Colonography 1962 Colonoscopy 1962 Colorectal Cancer Screening 1962 FIT DNA/Cologuard 1962 FIT 1962 FOBT 1962 HIV Screening 1962 Sigmoidoscopy 1962 Diabetes: Foot Exam 02/25/1972 Eye Exam 02/25/1972 Alcohol/Substance Use Screening 1974 Hepatitis A Vaccines (1 of 2 - Risk 2-dose series) 1981 Pneumococcal Vaccine: 50+ Years (2 of 2 - PCV) 06/30/2010 06/30/2009 Zoster Vaccines (1 of 2) 02/25/2012 Hepatitis B Vaccines (1 of 3 - Risk 3-dose series) 2022 RSV Patients and Patients Aged 60 years or older (1 - Risk 60-74 years 1-dose series) 2022 Diabetes: Urine Protein Screening 02/18/2023 02/18/2022, 10/22/2021, 09/27/2020, Additional history exists Diabetes: Hemoglobin A1C 10/28/2023 024, 02/04/2023, 07/30/2022, Additional history exists COVID-19 Vaccine ( season) 2023 Influenza Vaccine (#1) 2023 2, 04/16/2011, 04/16/2011 Depression Screening 04/21/2024 04/21/2023, 07/31/19 23 Tobacco Screening 06/10/2024 06/10/2023 Lipid Panel 07/24/2024 07/25/2023, 01/13, 04/23/2022, Additional history exists SDOH Screening 05/17/2025 05/17/2024 DTaP/Tdap/Td Vaccines (2 - Td or Tdap) 10/23/2031 10/22/2021, 06/30/2009 Hepatitis C Screening Completed 04/29/2023 HIB Vaccines Aged Out No longer eligi ble based on patient's age to complete this topic HPV Vaccines Aged Out No longer eligi ble based on patient's age to complete this topic IPV Vaccines Aged Out No longer eligi ble based on patient's age to complete this topic Meningococcal Vaccine Aged Out No betty kimberlee eligible based on patient's age to complete this topic RSV under 20 months Aged Out No longe r eligible based on patient's age to complete this topic Rotavirus Vaccines Aged Out No longer eligible based on patient's age to complete this topic Procedures Procedure Name Priority Date/Time Associated Diagnosis Comments LIPID PANEL, STANDARD Routine 07/25/2023 6:35 AM EDT Primary hypertension HEMOGLOBIN A1C Routine 04/29/2023 1:17 PM EST Primary hypertension HEPATITIS C AB W/REFL TO HCV RNA, QN, PCR Routine 04/29/2023 1:00 PM EST Primary hypertension ZZZ HISTORICAL MICROALBUMIN/CREATI NINE RATIO, RANDOM URINE Routine 02/18/2022 9:05 AM EST from Last 3 Months or Most Recently Relevant to Health Maintenance Results * (ABNORMAL) Lipid Panel, Standard (07/25/2023 6:35 AM EDT) Triglycerides 61 <150 mg/dL [facility] Comment:Desirable Triglyceri de: less than 150 mg/dLBorderline High Triglyceride 150-199 mg/dLHigh Triglyceride: 200-499 mg/dLVery High Triglyceride: greater than or equal to 5OO mg/dL Cholesterol 113 <200 mg/dL [facility] Comment:Desirable Cholestero l: less than 200 mg/dLBorderline High Cholesterol: 200-239 mg/dLHigh Cholesterol: greater than 239 mg/dL LDL Cholesterol Calculated 69 <100 mg/dL [facility] Comment:Desirable LDL: less than 100 mg/dLNear Optimal/Above Optimal LDL: 110- 129 mg/dLBorderline High LDL: 130-159 mg/dLHigh LDL: 160-189 mg/dLVery High LDL: greater than or equal to 190 mg/dL HDL Cholesterol 32(L) >40 mg/dL [facility] Comment:Desirable HDL: great er than 40 mg/dL Note: This HDL assay may give artificially low results in patients with liver disease. Blood Venous blood specimen / Unknown 07/25/2023 6:35 AM EDT 07/25/2023 6:35 AM EDT us Christopher Krishnan MD LAB BLOOD ORDERABL ES Final Result [facility] [address] [place] [phone] * Hemoglobin A1c (04/29/2023 1:17 PM EST) Hemoglobin A1c 4.9 <6.0 % [facility] Comment:Hemoglobin A1C Refer ence Range Adults: 4.8 - 6.0 % Non diabetic: < 6.0 % Goal: < 7.0 %Additional Action Suggested: > 8.0 %Note: Hemoglobin A1c results are invalid for patients with abnormal amounts of HbF. Blood transfusions may impact the HbA1c concentration in the patient sample. Estimated Average Glucose 94 mg/dL [facility] Comment:eAG = Estimated ave rage glucose which is %A1C expressed asaverage glucose, using the formula of the G6M-HzbjolsNuvihou Glucose study (ADAG), Diabetes Care, Vol.31,#8,2007 Blood Venous blood specimen / Unknown 04/29/2023 1:17 PM EST 04/29/2023 2:42 PM EST Christopher Krishnan MD LAB BLOOD ORDERABL ES Final Result Performing Organization Address [facility] Co de Phone Number [facility] [address] [place] [phone] * Hepatitis C Antibody with Reflex to HCV, RNA, Quantitative, Real-Time PCR (04/29/2023 1:00 PM EST) Hepatitis C Antibody Nonreactive Nonreactive [facility] Comment:Antibodies to HCV no t detected; does not exclude early acuteHCV infection. Blood Venous blood specimen / Unknown 04/29/2023 1:00 PM EST 04/29/2023 2:42 PM EST Christopher Krishnan MD LAB BLOOD ORDERABL ES Final Result Performing Organization Address [facility] de Phone Number [facility] [address] [place] [phone] * MICROALBUMIN/CREATININE RATIO, RANDOM URINE (02/18/2022 9:05 AM EST) Creatinine Urine 49.61 mg/dL [facility] Microalbum/Creati nine Ratio Ur 56.4 ug/mg cr [facility] Comment: ?Albumin/Creatinine Ratio Reference Ranges: ? Normal: < 30 ug/mg creatinine ? Microalbuminuria: ??30 - 300 ug/mg creatinine Clinical Albuminuria: ??> 300 ug/mg creatinine Microalbumin Urine 28.0 mg/L [facility] 02/18/2022 9:05 AM EST us Historical Provider HISTORICAL/NON ORDERABLE LABS Final Result [facility] from Last 3 Months or Most Recently Relevant to Health Maintenance Insurance [facility] MEDICARE ADVANTAGE HMO [facility] Care Teams Employee Adviser Relationship Specialty Start Date End Date Christopher Boogie MD [address] [place] [phone] PCP - General Internal Medicine 09/07/19
--- OUTSIDE RECORDS SUMMARY | 2024-06-03 08:08 | XMS_ITS | Encounter Summary ---
Author Organization [employer] Address [address] [facility] 7[address] [place] [address] Care Team Providers Care Marshmallow Machine Worker Name Role Phone Christopher Boogie MD Primary Care Prov ider Reason for Visit * Reason Comments Pre-visit Planning SDOH negative, Tobac co screening negative Encounter Details Date Type Department Care Team ([facility] st Contact Info) Description 05/17/2024 Patient Outreach [facility] [address] [place], [place] [phone] Christopher Boogie MD [address] [place] [address] Pre-visit Planning (SDOH negative, Tobacco screening negative/) Social History Tobacco Use Types Packs/Day Years [...] AM EDT documented as of this encounter Progress Notes * Maame Gabriel - 05/17/2024 3:33 PM EST CC Maame Ventura placed successful outbound call to patient for pre-visit planning. Patient name and confirmed. Patient confirms appt date and time, and has transportation arrangements. Biggest concern for appointment at this time is no concerns. Appropriate screenings completed in anticipation ofappointment. documented in this encounter Plan of Treatment Not on file documented as of this encounter Visit Diagnoses Not on filedocumented in this encounter Additional Health Concerns Assessment Noted Time PHQ-9 Depression Total Score: 0 07/31/19 23 9:56 AM EDT documented as of this encounter Care Teams Marshmallow Machine Worker Relationship Specialty Start Date End Date Christopher Boogie MD [address] [place] [phone] PCP - General Internal Medicine 09/07/19 documented as of this encounter
--- OUTSIDE RECORDS SUMMARY | 2024-06-03 08:08 | XMS_ITS | Encounter Summary ---
Author Organization [employer] Address [address] [facility] 7t [place] [address] Care Team Providers Care Production Machinist Name Role Phone Christopher Boogie MD Primary Care Prov ider Reason for Visit * Reason Comments Med Refill Encounter Details Date Type Department Care Team ([facility] Contact Info) Description 05/31/2024 Refill [facility] [address] [place], [place] [phone] Christopher Boogie MD [address] [place] [address] Hypogonadism in male Social History Tobacco Use Types Packs/Day Years [...] the past 12 months, has t he [employer], gas, oil or water company threatened to [...] as of this encounter Visit Diagnoses Diagnosis Hypogonadism in male documented in this encounter Additional Health Concerns Assessment Noted Time PHQ-9 Depression Total Score: 0 07/31/19 23 9:56 AM EDT documented as of this encounter Care Teams Production Machinist Relationship Specialty Start Date End Date Christopher Boogie MD [address] [place] [phone] PCP - General Internal Medicine 09/07/19 documented as of this encounter
--- OUTSIDE RECORDS SUMMARY | 2024-06-03 08:08 | XMS_ITS | Encounter Summary ---
Author Organization [employer] Address [address] [facility] 7[address] [place] [address] Care Team Providers Care Tap Builder Name Role Phone Christopher Boogie MD Primary Care Prov ider Encounter Details Date Type Department Care Team (Late st Contact Info) Description 12/05/2022 Orders Only [facility] [address] [place] [address] Christopher Boogie MD [address] [place] [address] Social History Tobacco Use Types Packs/Day Years [...] documented as of this encounter Care Teams Tap Builder Relationship Specialty Start Date End Date Christopher Boogie MD [address] [place] [address] PCP - General Internal Medicine 09/07/19 documented as of this encounter
--- OUTSIDE RECORDS SUMMARY | 2024-06-03 08:08 | XMS_ITS | Encounter Summary ---
Author Organization [employer] Address [address] [facility] [address] [place] [address] Care Team Providers Care Silk Winding Machine Operator Name Role Phone Christopher Boogie MD Primary Care Prov ider Reason for Visit * Reason Comments Med Refill Encounter Details Date Type Department Care Team ([facility] st Contact Info) Description 05/04/2024 Refill [facility] [address] [place], [place] [phone] Christopher Boogie MD [address] [place] [address] Primary hypertension Social History Tobacco Use Types Packs/Day Years [...] t he electric, gas, oil or water [employer] threatened to shut off services in your [...] as of this encounter Visit Diagnoses Diagnosis Primary hypertension Unspecified essential hypertension documented in this encounter Additional Health Concerns Assessment Noted Time PHQ-9 Depression Total Score: 0 07/31/19 23 9:56 AM EDT documented as of this encounter Care Teams Silk Winding Machine Operator Relationship Specialty Start Date End Date Christopher Boogie MD [address] [place] [address] PCP - General Internal Medicine 09/07/19 documented as of this encounter
--- OUTSIDE RECORDS SUMMARY | 2024-06-03 08:08 | XMS_ITS | Encounter Summary ---
Author Organization [employer] Address [address] [facility] 7t [place] [address] Care Team Providers Care Interactive Graphic Designer Name Role Phone Christopher Boogie MD Primary Care Prov ider Reason for Visit * Reason Onset Date Comments Med Refill 08/26/2022 Encounter Details Date Type Department Care Team (Late st Contact Info) Description 08/26/2022 Telephone [facility] [address] [place] [address] Christopher Boogie MD [address] [place], [place] [phone] Med Refill Social History Tobacco Use Types Packs/Day Years [...] encounter Miscellaneous Notes * Telephone Encounter - Jovani Mueller - 08/27/2022 9:45 AM EDT Pt called in irate about not getting his oxycodone . Pt was advised about protocol but did states I dont care I want to speak with a manager product marketing. * Telephone Encounter - Brandon Palmer - 08/26/2022 8:33 AM EDT Tc from pt requesting a refill for oxycodone 5 mg documented in this encounter Plan of Treatment Not on file documented as of this encounter Visit Diagnoses Not on filedocumented in this encounter Additional Health Concerns Assessment Noted Time PHQ-9 Depression Total Score: 0 07/31/19 23 9:56 AM EDT documented as of this encounter Care Teams Interactive Graphic Designer Relationship Specialty Start Date End Date Christopher Boogie MD [address] [place] [phone] PCP - General Internal Medicine 09/07/19 documented as of this encounter
[2024-06-03 14:12] LABS: MANUAL DIFF FLAG NO
[2024-06-03 14:19] LABS: Basophils Percent Auto 0.7 % (0-2); Eosinophils Absolute Auto 0.2 X10*3/uL (0.0-0.4); Eosinophils Percent Auto 4.1 % (0-4); Hematocrit 44.4 % (42.0-52.0); Hemoglobin 15.8 g/dl (14.0-18.0); Imm Gran Abs Auto 0.02 X10*3/uL (0.00-0.03); Imm Gran Pct Auto 0.4 % (0.0-0.4); Lymphocytes Absolute Auto 2.2 X10*3/uL (1.2-4.9); Lymphocytes Percent Auto 39.2 % (20-40); Mean Corpuscular HGB Conc 35.6 g/dl (31.0-36.0); Mean Corpuscular Hemoglobin 33.8 pg (27.0-33.0); Mean Corpuscular Volume 95.1 fL (80.0-98.0); Mean Platelet Volume 10.2 fL (9.4-12.4); Monocytes Absolute Auto 0.4 X10*3/uL (0.1-1.2); Monocytes Percent Auto 6.2 % (2-11); Neutrophils Absolute Auto 2.8 x10*3/uL (2.0-8.3); Neutrophils Percent Auto 49.4 % (45-73); Platelet Count 177 X10*3/uL (160-400); Red Blood Count 4.67 X10*6/uL (4.60-5.80); Red Cell Distribution Width 12.7 % (11.0-16.0); White Blood Count 5.6 X10*3/uL (4.8-10.8)
[2024-06-03 14:35] LABS: Alanine Aminotransferase 34 U/L (0-40); Albumin Level 4.4 g/dL (3.5-5.0); Alkaline Phosphatase 47 U/L (39-117); Anion Gap 13 (12-20); Aspartate Amino Transferase 30 U/L (5-37); Bilirubin Total 1.2 mg/dL (0.0-1.0); Blood Urea Nitrogen 36 mg/dL (9-16); Calcium 9.5 mg/dL (8.4-10.2); Carbon Dioxide 21 mmol/L (22-29); Chloride 110 mmol/L (96-108); Cholesterol 148 mg/dL (<200); Estimated Glomerular Filt Rate > 60; Glucose Random 104 mg/dL (60-115); HDL Cholesterol 34 mg/dL (>40); Iron 114 mcg/dL (45-160); LDL Cholesterol Calculated 94 mg/dL (<100); Percent Iron Saturation 40 % (15-50); Potassium 3.5 mmol/L (3.3-5.1); Sodium 140 mmol/L (135-145); Total Iron Binding Capacity 286 mcg/dL (228-428); Total Protein 8.4 g/dL (6.5-8.0); Triglycerides 100 mg/dL (<150); Unsaturated Iron Binding 172 ug/dL
[2024-06-03 14:53] LABS: TSH reflex Free T4 1.97 uIU/mL (0.32-4.0); Vitamin D 25-OH Total 133.9 ng/mL (>30)
[2024-06-03 15:01] LABS: Folate 15.1 ng/mL (> or = 4.0); Vitamin B12 770 pg/mL (200-900)
[2024-06-04 08:35] LABS: HIV AB/AG Nonreactive (Nonreactive); HIV Num 1 0.05 S/CO (0.00-0.99)
[2024-06-07 03:08] LABS: Venous Lead 3.3 mcg/dL (<3.5)
[2024-06-09 17:37] LABS: Testosterone, Total 455 ng/dL (250-1100)
== END 2024-06-03 08:05 | disposition home or self-care (01) ==
LOC: HO.CHCLDS 08:04
PROVIDERS: Visit Provider Internal Medicine
DX: I10 Essential (primary) hypertension (principal)
CPT/HCPCS: 36415; 80053; 80061; 82306; 82607; 82746; 83540; 83655; 84402; 84403; 84443; 85025; 87389

== ENCOUNTER 2024-09-03 09:26 | Outpatient (AMB) | payer MEDICARE, MEDICAID, SELFPAY ==
--- NOTE | 2024-09-03 09:28 | MHC.OFFVISWM ---
VS Expanded 09/03/24 09:41 BP 168/85 H Blood Pressure Location Rt brachial Blood Pressure Position Sitting Pulse 70 Pulse Source Pulse Oximeter Temp 97.8 F Temperature Source Temporal Artery Scan Pulse Oximetry 98 Oxygen Delivery Method Room Air Height 5 ft 6 in Weight 239 lb BMI 38.6 Body Fat % 33.5 Body Fat Mass 80.0 Fat Free Mass 159.0 Visceral Fat Rating 21.0 Body Water % 49.3 Body Water Mass 117.8 Muscle Mass/Score 151.0 Basal Metabolic Rate/Score 2,150 Intake Visit Reasons: (OV) PO LSG 07/02/22 Shadow Graph Weight Operator Required: No Allergies No Known Allergies Allergy (Verified 09/03/24 09:34) Medication List - Last Reconciled 09/03/24 by CASSY Ellsworth azelastine intranasal bisacodyl (Dulcolax (bisacodyl)) 20 mg (4 x 5 mg) PO ONCE 1 day blood pressure test kit-large As directed hydrochlorothiazide 25 mg PO DAILY losartan 100 mg PO DAILY metoprolol succinate ER 100 mg PO DAILY qqenpiokarqv-rzx-huqa-FA-vit K 45 mg iron- 800 mcg-120 mcg (Bariatric Multivitamins) caps PO syringe with needle As directed weekly for testosterone administration syringe with needle As directed testosterone cypionate 80 mg IM QWEEK tramadol 50 mg PO Q8H PRN HPI Comments Details: This?a?64?yo male who is s/p LSG without hiatal hernia repair on?07/02/2022. Presents for 2 year 2 month post op visit. Weight today is 239 pounds, with a BMI of 38.6. There has been a 53.8 pound weight loss,(initial weight 292.8 pounds) since starting the program on 04/22/2022 reflecting a 18.3 % total body weight loss and a weight loss of 20.3 pounds since surgery (operative weight 259.3 pounds) reflecting a 7.8 % TBWL since surgery. No complaints of nausea, emesis, abdominal pain or reflux. Reports infrequent but normal bowel movements every 2-3 days and uses stool softeners regularly. He has not been seen in approximately a year. He states that he has resumed a meal plan but did not communicate in the last year or so. He has been very busy helping his , work, taking care of things around the house. He would have 2-3 premier protein RTD shakes per day and a 2 meals w 4-5 forks chicken or pork and salad and fried onion rings Drinking 80 oz water ? Exercise routine includes: [employer] gym 3 x per week treadmill speed 3, incline 6-12, 40 min, 250 calories. Any post op complications: none VERONICA: continues DM: resolved HTN: continues Hyperlipidemia: never GERD:?0-5 scale ??0 = no symptoms ??1 = symptoms noticeable but not bothersome 2 =symptoms bothersome but not daily ? 3 = symptoms bothersome and daily 4 = symptoms affect daily activities 5 = symptoms are incapacitating, unable to do daily activities ? How bad is the heartburn: 0 ? Heartburn while lying down: 0 ? Heartburn when standing up: 0 ? Heartburn after meals: 0 ? Does heartburn change your diet: 0 ? Does heartburn wake you up from sleep: 0 ? Do you have difficulty swallowin ? Do you have pain with swallowin ? If you take medicine for your reflux, does this affect your daily life: 0 Satisfaction with present condition - satisfied or not satisfied: dissatisfied [facility] Medical History DJD (degenerative joint disease) Sleep apnea with use of continuous positive airway pressure (CPAP) Morbid obesity Obesity Goiter Hypogonadism male Vitamin D deficiency HLD (hyperlipidemia) HTN (hypertension) T2DM (type 2 diabetes mellitus) Surgical History History of sleeve gastrectomy H/O arthroscopy of left knee Hx of appendectomy Family History Father Coronary artery disease Hypertension Mother Coronary artery disease Hypertension Stroke Brother Cancer Social History Household Members: Family Housing: House Are you a primary career representative to a significant other at home: No Do you presently have visiting nurse or other home services: No Alcohol intake: current Alcohol intake frequency: holidays/special occasions only Alcohol type: wine Patient Tobacco Use Status: Never used Tobacco Advance Directives Date on File: 07/04/22 service: No Physical Exam Vital Signs: Last Vital Signs Temp 97.8 F 09/03/24 09:41 Pulse 70 09/03/24 09:41 BP 168/85 H 09/03/24 09:41 Pulse Ox 98 09/03/24 09:41 Oxygen Delivery Method Room Air 09/03/24 09:41 BMI result Body Mass Index 38.6 Const General: cooperative and no acute distress Orientation/consciousness: patient oriented x3 Resp Effort & Inspection: normal respiratory effort Auscultation: clear to auscultation bilaterally Cardio Rate: regular rate Rhythm: regular rhythm GI Inspection: Yes normal to inspection and Yes incision (well healed) Palpation (GI): Soft to palpation and no masses Neuro General: patient oriented x3 Assessment & Plan Assessment & Plan (1) S/P laparoscopic sleeve gastrectomy: Code(s): Z98.84 - Bariatric surgery status Category: Surgical Plan: Patient given information regarding right BMI. He recently had blood work done 2 months ago and this looked okay. He was instructed to increase his exercise. He does have an exercise bike at home, so he may use the gym 3 days a week, exercise bike at home 3 days a week and walking outside 1 day a week. Goal of burning 2000 calories per week. With a structured meal plan and structured exercise plan, expectation is at weight loss of 2-3 lb per week. Should he have persistent difficulty, consideration for GLP 1 medications. We will have him return to the office in a proximally 1 month.
--- OUTSIDE RECORDS SUMMARY | 2024-09-03 09:37 | XMS_ITS | Clinical Summary ---
Author Organization [employer] Address [address] [place] [address] Care Team Providers Care Painter Supervisor Name Role Phone Christopher Boogie MD Primary Care Prov ider Allergies No known active allergies Medications fluticasone (Flonase) 50 MCG/ACT nasal spray inhale 1 spray by intranasal route every day in each nostril as needed for allergies 020 Active traMADol (Ultram) 50 MG tablet take 1 Tablet by Oral route every 6 hours Active Blood Pressure Monitor [facility] Check blood pressure on arm as directed [...] foot rash 60 g 1 024 Active Bisacodyl EC 5 MG EC [...] MG capsule TAKE TWO CAPSULES AT BEDTIME 023 Active polyethylene glycol, PEG, 3350 (Glycolax) 17 GM/SCOOP powder STIR 17GM INTO 8 OUNCES OF WATER, OR JUICE, AND DRINK DAILY NEEDED / DIRECTED 024 Active B-D 3CC LUER-ALLYN SYR 22GX1 22G X 1 3 ML misc Use weekly for testosterone administration 14 each 024 Active metoprolol succinate XL (Toprol-XL) 100 MG 24 hr tablet TAKE ONE TABLET EVERY MORNING, DO NOT BREAK, CRUSH, DISSOLVE OR CHEW 90 tablet 3 024 Active hydroCHLOROthia zide (HYDRODiuril) 25 MG tabletIndicatio ns:Primary hypertension Take 1 tablet (25 mg) by mouth in the morning. 90 tablet 3 025 Active azelastine (Astelin) 0.1 % nasal spray Administer 1 spray into each nostril 2 times daily. Use in each nostril as directed 30 mL 12 025 2025 Active Tirzepatide-Jarek ght Management (Zepbound) 2.5 MG/0.5ML solution auto-injector Inject 0.5 mL (2.5 mg) under the skin 1 (one) time per week. 3 mL 025 Active cetirizine (ZyrTEC) 10 MG tablet TAKE ONE TABLET DAILY 90 tablet 2 025 Active phentermine 15 MG capsule Take 1 capsule (15 mg) by mouth before breakfast. 30 capsule 025 Active losartan (Cozaar) 100 MG tablet TAKE ONE TABLET EVERY MORNING 90 tablet 3 025 Active topiramate 50 MG tablet TAKE TWO TABLETS TWICE DAILY 60 tablet 1 025 Active testosterone cypionate (Depo-Testoster one) 200 MG/ML injectionIndica tions:Hypogonad ism in male INJECT 0.5 ML INTO THE MUSCLES EVERY 14 DAYS 2 mL 2 025 Active testosterone cypionate (Depo-Testoster one) 200 MG/ML injectionIndica tions:Hypogonad ism in male INJECT 0.5 ML INTO THE MUSCLES EVERY 14 DAYS 2 mL 2 025 2024 Discontinued topiramate (Topamax) 50 MG tablet Take 2 tablets (100 mg) by mouth 2 times daily. 60 tablet 1 025 2024 Discontinued Active Problems Problem Noted Date Diagnosed Date Obesity, morbid 05/24/2024 Assessment & Plan (07/02/2024 1:24 PM EDT): Patient tried phentermine without major weight loss and side effects, will send zepbound for insurance approval Reviewed indications for pharmacotherapy with patient, which is treatment for patient w/ obesity or a patient with a BMI > 27 w/ CV risk factors who have failed lifestyle modifications alone. These are always prescribed in combination with ongoing lifestyle modification; and will be titrated up from the lowest dose. Will start patient on Zepbound, given know efficacy and proven benefits to reduce the risk of cardiovascular events in patients who are overweight or obese and have cardiovascular disease, following of the SELECT trial results. Reviewed mechanism of action with patient. Discussed side effects with patient: nausea, vomiting, diarrhea & risk of pancreatitis. No contraindications identified: , hx of pancreatitis, hx of medullary thyroid cancer or MEN 2. Discussed calorie deficit, recommended reduction of 20-30% of maintenance calories; morgue attendant referral offered. Recommended to decrease soda and sugary beverage consumption. Recommended at least 20 g per meal of protein to assist with satiety. Recommended at least 150 min/week of moderate intensity exercise. Assessment & Plan (05/24/2024 10:37 AM EST): [...] Encounters Date Type Department Care Team Description 08/18/2024 Refill [facility] [address] [place] [phone] Christopher Boogie MD Hypogonadism in male 08/11/2024 Telephone [facility] [address] [place] [address] Christopher Boogie MD Prior Authorization 08/05/2024 Refill [facility] [address] [place] [address] Christopher Boogie MD 07/31/2024 Refill [facility] [address] [place] [address] Christopher Boogie MD 07/26/2024 Refill [facility] [address] [place] [address] Christopher Boogie MD 07/02/2024 11:30 AM EDT Office Visit [facility] [address] [place] [address] Christopher Boogie MD Uncontrolled type 2 diabetes mellitus with hyperglycemia ([facility]) (Primary Dx); Acute non-recurrent maxillary sinusitis; Obesity, morbid ([facility]/H[facility]) 07/02/2024 Refill [facility] [address] [place] [address] Christopher Boogie MD 07/02/2024 Travel 07/02/2024 Telephone [facility] [address] [place] [address] [phone] Christopher Boogie MD Nurse Triage 06/18/2024 Refill [facility] [address] [place] [address] Christopher Boogie MD from Last 3 Months Immunizations Immunization Administration Dates Next Due Influenza, IIV3, injectable [...] Sign Reading Time Taken Comments Blood Pressure 132/77 07/02/2024 11:35 AM EDT Pulse 63 07/02/2024 11:35 AM EDT Temperature 36.9 ??C (98.4 ??F) 07/02/2024 11:35 AM E DT Respiratory Rate 20 07/02/2024 11:35 AM EDT Oxygen Saturation - - Inhaled Oxygen Concentration - - Weight 104 kg (230 lb) 07/02/2024 11:35 AM EDT Height 170.2 cm (5' 7 ) 07/02/2024 11:35 AM EDT Body Mass Index 36.02 07/02/2024 11:35 AM EDT Plan of Treatment Health Maintenance Due Date Last Done Comments CT Colonography 1962 Colonoscopy 1962 Colorectal Cancer Screening 1962 FIT DNA/Cologuard 1962 FIT 1962 FOBT 1962 Sigmoidoscopy 1962 Disability Screening 1962 Diabetes: Foot Exam 02/25/1972 Eye Exam [...] 02/18/2023 02/18/2022, 10/22/2021, 09/27/2020, Additional history exists COVID-19 Vaccine ( season) 2023 Influenza Vaccine (#1) 2023 2, 04/16/2011, 04/16/2011 Depression Screening 04/21/2024 04/21/2023, 07/31/19 23 Diabetes: Hemoglobin A1C 01/02/2025 025, 04/29/2023, 02/04/2023, Additional history exists SDOH Screening 05/17/2025 05/17/2024 Tobacco Screening 05/17/2025 05/17/2024 Lipid Panel 06/03/2025 06/03/2024, 04/05/2023, 02/04/2023, Additional history exists DTaP/Tdap/Td Vaccines (2 - Td or Tdap) 10/23/2031 10/22/2021, 06/30/2009 Hepatitis C Screening Completed 04/29/2023 HIV Screening Completed 06/03/2024 HIB Vaccines Aged Out No longer eligi ble based on patient's age to complete this topic HPV Vaccines Aged Out No longer eligi ble based on patient's age to complete this topic IPV Vaccines Aged Out No longer eligi ble based on patient's age to complete this topic Meningococcal B Vaccine Aged Out No l onger eligible based on patient's age to complete [...] Procedure Name Priority Date/Time Associated Diagnosis Comments POCT GLYCATED HEMOGLOBIN, TOTAL Routine 07/02/2024 11:47 AM EDT Uncontrolled type 2 diabetes mellitus with hyperglycemia (CMS/HCC) POCT GLUCOSE Routine 07/02/2024 11:47 AM EDT Uncontrolled type 2 diabetes mellitus with hyperglycemia (CMS/HCC) HIV 1/2 ANTIGEN/ANTIBODY, FOURTH GENERATION W/RFL Routine 06/03/2024 8:06 AM EST Primary hypertension LIPID PANEL, STANDARD Routine 06/03/2024 8:06 AM EST Primary hypertension HEPATITIS C AB W/REFL TO HCV RNA, QN, PCR Routine 04/29/2023 1:00 PM EST Primary hypertension ZZZ HISTORICAL MICROALBUMIN/CREATI NINE RATIO, RANDOM URINE Routine 02/18/2022 9:05 AM EST from Last 3 Months or Most Recently Relevant to Health Maintenance Results * POCT HGB A1C (07/02/2024 11:47 AM EDT) Hemoglobin A1C 5.7 4.0 - 6.0 % QC Media Lot # [id number] Lot# Expiration Date Blood 07/02/2024 11:4 7 AM EDT us Christopher Krishnan MD POINT OF CARE TEST ENTER/EDIT ORDERABLES Final Result * POCT Glucose (07/02/2024 11:47 AM EDT) Glucose Blood, POC 120 60 - 200 mg/dL QC Media Lot # [id number] Lot# Expiration Date Blood Capillary blood specimen / Unknown 07/02/2024 11:47 AM EDT us Christopher Krishnan MD POINT OF CARE TEST ENTER/EDIT ORDERABLES Final Result * HIV-1/2 Antigen and Antibodies, Fourth Generation, with Reflexes (06/03/2024 8:06 AM EST) Pathologist [facility] HIV AB/AG Nonreactive Nonreactive [facility] Comment:HIV-1 p24 Ag and/or HIV-1/HIV-2 Ab not detected.A test result that is nonreactive does not exclude thepossibility of exposure to or infection with HIV-1 and/orHIV-2. Nonreactive results in this assay for individualswith prior exposure to HIV-1 and/or HIV-2 may be due toantigen and antibody levels that are below the limit ofdetection of this assay.The [employer] HIV Ag/Ab Combo assay result andsupplemental assay results should be interpreted inconjunction with the patient's clinical presentation,history and other laboratory results. If the results areinconsistent with clinical evidence, additional testing issuggested to confirm the result. Blood Venous blood specimen / Unknown 06/03/2024 8:06 AM EST 06/03/2024 2:06 PM EST us Christopher Krishnan MD LAB BLOOD ORDERABL ES Final Result Performing Organization Address [facility] Co de Phone Number [facility] [address] [place] [address] [phone] * (ABNORMAL) Lipid Panel, Standard (06/03/2024 8:06 AM EST) Triglycerides 100 <150 mg/dL [facility] Comment:Desirable Triglyceri de: less than 150 mg/dLBorderline High Triglyceride 150-199 mg/dLHigh Triglyceride: 200-499 mg/dLVery High Triglyceride: greater than or equal to 5OO mg/dL Cholesterol 148 <200 mg/dL [facility] Comment:Desirable Cholestero l: less than 200 mg/dLBorderline High Cholesterol: 200-239 mg/dLHigh Cholesterol: greater than 239 mg/dL LDL Cholesterol Calculated 94 <100 mg/dL [facility] Comment:Desirable LDL: less than 100 mg/dLNear Optimal/Above Optimal LDL: 110- 129 mg/dLBorderline High LDL: 130-159 mg/dLHigh LDL: 160-189 mg/dLVery High LDL: greater than or equal to 190 mg/dL HDL Cholesterol 34(L) >40 mg/dL [facility] Comment:Desirable HDL: great er than 40 mg/dL Note: This HDL assay may give artificially low results in patients with liver disease. Blood Venous blood specimen / Unknown 06/03/2024 8:06 AM EST 06/03/2024 2:06 PM EST Christopher Krishnan MD LAB BLOOD ORDERABL ES Final Result Performing Organization Address City/[facility]/ZIP Co de Phone Number [facility] [address] [place] [address] [phone] * Hepatitis C Antibody with Reflex to HCV, RNA, Quantitative, Real-Time PCR (04/29/2023 1:00 PM EST) Hepatitis C Antibody Nonreactive Nonreactive [facility] Comment:Antibodies to HCV no t detected; does not exclude early acuteHCV infection. Blood Venous blood specimen / Unknown 04/29/2023 1:00 PM EST 04/29/2023 2:42 PM EST Christopher Krishnan MD LAB BLOOD ORDERABL ES Final Result Performing Organization Address City/[facility] Co de Phone Number [facility] [address] [place] [address] [phone] * MICROALBUMIN/CREATININE RATIO, RANDOM URINE (02/18/2022 9:05 AM EST) Creatinine Urine 49.61 mg/dL [facility] Microalbum/Creati nine Ratio Ur 56.4 ug/mg cr [facility] Comment: ?Albumin/Creatinine Ratio Reference Ranges: ? Normal: < 30 ug/mg creatinine ? Microalbuminuria: ??30 - 300 ug/mg creatinine Clinical Albuminuria: ??> 300 ug/mg creatinine Microalbumin Urine 28.0 mg/L [facility] 02/18/2022 9:05 AM EST Historical Provider HISTORICAL/NON ORDERABLE LABS Final Result Performing Organization Address City/[facility]/ZIP Co de Phone Number [facility] from Last 3 Months or Most Recently Relevant to Health Maintenance Insurance [facility] MEDICARE ADVANTAGE Care Teams Painter Supervisor Relationship Specialty Start Date End Date Christopher Boogie MD [address] [place] [phone] PCP - General Internal Medicine 09/07/19
[2024-09-03 09:41] VITALS: BP 168/85; PULSE 70; TEMP 36.6; O2SAT 98; BMI 38.6
== END 2024-09-03 10:14 | disposition home or self-care (01) ==
PROVIDERS: PCP Internal Medicine; Visit Provider Physician Assistant Surgical
DX: E66.9 Obesity, unspecified (principal); E66.812 Obesity, class 2; Z68.38 Body mass index [BMI] 38.0-38.9, adult; Z98.84 Bariatric surgery status
CPT/HCPCS: 99214; G2211

== ENCOUNTER → 2024-09-03 09:26 | Outpatient (BNVA) | payer MEDICARE, SELFPAY | PROVIDERS: PCP Internal Medicine; Visit Provider Physician Assistant Surgical | DX: Z98.84 Bariatric surgery status (principal) | CPT/HCPCS: 99212 ==

== ENCOUNTER 2024-10-11 09:16 | Outpatient (AMB) | payer MEDICARE, MEDICAID, SELFPAY ==
--- NOTE | 2024-10-11 09:23 | A.OFFVIS_ITS ---
VS Expanded 10/11/24 09:33 BP 183/89 H Blood Pressure Location Rt brachial Blood Pressure Position Sitting Pulse 74 Pulse Source Pulse Oximeter Temp 97.6 F Temperature Source Temporal Artery Scan Pulse Oximetry 97 Oxygen Delivery Method Room Air Height 5 ft 6 in Weight 245 lb BMI 39.5 Body Fat % 35.0 Body Fat Mass 85.8 Fat Free Mass 159.2 Visceral Fat Rating 12.0 Body Water % 46.1 Body Water Mass 112.8 Muscle Mass/Score 151.2 Basal Metabolic Rate/Score 2,163 Intake Visit Reasons: (OV) PO LSG 07/02/22 Air Conditioning Supervisor Required: No Allergies No Known Allergies Allergy (Verified 10/11/24 09:27) Medication List - Last Reconciled 10/11/24 by CASSY Ellsworth azelastine intranasal bisacodyl (Dulcolax (bisacodyl)) 20 mg (4 x 5 mg) PO ONCE 1 day blood pressure test kit-large As directed gabapentin 300 mg PO DAILY hydrochlorothiazide 25 mg PO DAILY losartan 100 mg PO DAILY metoprolol succinate ER 100 mg PO DAILY Held on 07/03/22. Instructions: Resume on 07/04/22. Check your blood pressure every evening and send it to Dr. Alvarado. Do not take the medication before you hear from Dr. Alvarado. Do not take the medication if your blood pressure is below 120/70 mmHg. wkjvrswpmxgo-rqi-lkel-FA-vit K 45 mg iron- 800 mcg-120 mcg (Bariatric Multivitamins) caps PO syringe with needle As directed weekly for testosterone administration syringe with needle As directed testosterone cypionate 80 mg IM QWEEK Held on 07/03/22. Instructions: Resume on 08/01/22. tirzepatide (weight loss) (Zepbound) 2.5 mg (0.5 mL) subcut QWEEK tramadol 50 mg PO Q8H PRN HPI Comments Details: This?a?64?yo male who is s/p LSG without hiatal hernia repair on?07/02/2022. Presents for 2 year 3 month post op visit. Weight today is 245 pounds, with a BMI of 39.6. There has been a 47.8 pound weight loss,(initial weight 292.8 pounds) since starting the program on 04/22/2022 reflecting a 16.3 % total body weight loss and a weight loss of 14.3 pounds since surgery (operative weight 259.3 pounds) reflecting a 5.5 % TBWL since surgery. No complaints of nausea, emesis, abdominal pain or reflux. Reports infrequent but normal bowel movements every 2-3 days and uses stool softeners regularly. He had not been seen in approximately a year, last seen in August 2024 and at that time he was given information regarding the right BMI seth. Reports some desire for food when he gets home from work around 2 pm. He has been having salad and at that time with 4 seasons salad dressing. Additionally, he has been having his bars and shakes over a more rapid time. Then the recommended 2 hours. At the bar would be eaten around 10-15 minutes and the shakes her over approximate ly 30-40 minutes. Would like to start GLP 1 medication. Meal plan: 7-9 premier protein rtd 6 oz 10-12 another shake 1-3 pure protein bar 4 pm meal 8 forks protein and 8 forks veg 7-9 pure protein bar Drinking 80 oz water ? Exercise routine includes: stationary bike 4 days per week, 200-250 rafal [employer] 1-2 x per week treadmill speed 3, incline 6-12, 40 min, 350 calories. ON LICENSE OF [facility] Medical History DJD (degenerative joint disease) Sleep apnea with use of continuous positive airway pressure (CPAP) Morbid obesity Obesity Goiter Hypogonadism male Vitamin D deficiency HLD (hyperlipidemia) HTN (hypertension) T2DM (type 2 diabetes mellitus) Surgical History History of sleeve gastrectomy H/O arthroscopy of left knee Hx of appendectomy Family History Father Coronary artery disease Hypertension Mother Coronary artery disease Hypertension Stroke Brother Cancer Social History Household Members: Family Housing: House Are you a primary manager medicare to a significant other at home: No Do you presently have visiting nurse or other home services: No Alcohol intake: current Alcohol intake frequency: holidays/special occasions only Alcohol type: wine Patient Tobacco Use Status: Never used Tobacco Advance Directives Date on File: 07/04/22 service: No Physical Exam Const General: healthy appearing and no acute distress Resp Effort & Inspection: normal respiratory effort Auscultation: clear to auscultation bilaterally Cardio Rate: regular rate Rhythm: regular rhythm GI Auscultation: normal bowel sounds Extrem General: Yes normal to inspection Assessment & Plan Assessment & Plan (1) S/P laparoscopic sleeve gastrectomy: Code(s): Z98.84 - Bariatric surgery status Category: Surgical Plan: Patient was following the meal plan by product however not following the meal plan I time. This was discussed with him and how it directly impacts his feelings of hunger. He additionally wants to start GLP 1 medication and we will initiate Zepbound 2.5 mg weekly. He will resume going to the gym so he may swim 4 laps and walk 4 laps in the pool. He states that he can only swim 4 laps at this time. The next day he will increase swimming laps by 1 and decrease walking laps by 1 until he is able to swim 8 laps, at which point he will swim 8 labs and walk 8 laps and follow the same pattern. We will have him return to the office in approximately 1 month. Encouraged to text weekly with weights and with any questions or concerns. Medications: New tirzepatide (weight loss) (Zepbound) for 4 weeks 2.5 mg (0.5 mL) subcut QWEEK 2 mL 0RF
[2024-10-11 09:33] VITALS: BP 183/89; PULSE 74; TEMP 36.4; O2SAT 97; BMI 39.5
--- OUTSIDE RECORDS SUMMARY | 2024-10-11 09:34 | XMS_ITS | Clinical Summary ---
Author Organization [employer] Address [address] [facility] 7t [place] [address] Care Team Providers Care Stakes Player Name Role Phone Christopher Boogie MD Primary Care Prov ider Allergies No known active allergies Medications fluticasone (Flonase) 50 MCG/ACT nasal spray inhale 1 spray by intranasal route every day in each nostril as needed for allergies 020 Active traMADol (Ultram) 50 MG tablet take 1 Tablet by Oral route every 6 hours Active Blood Pressure Monitor [facility] Check blood pressure on arm as directed [...] DRINK DAILY NEEDED / DIRECTED 024 Active metoprolol succinate XL (Toprol-XL) 100 [...] 14 DAYS 2 mL 2 025 Active Syringe/Needle, Disp, (B-D 3CC LUER-ALLYN SYR 22GX1 ) 22G X 1 3 ML misc USE WEEKLY FOR TESTOSTERONE ADMINISTRATION 14 each 025 Active B-D 3CC LUER-ALLYN SYR 22GX1 22G X 1 3 ML misc Use weekly for testosterone administration 14 each 024 2024 Discontinued(R eorder (will not trigger notification [...] recommended reduction of 20-30% of maintenance calories; beaver trapper referral offered. Recommended to decrease soda and [...] Encounters Date Type Department Care Team Description 09/17/2024 Refill [facility] [address] [place] [address] Christopher Boogie MD 08/18/2024 Refill [facility] [address] [place] [address] Christopher Boogie MD Hypogonadism in male 08/11/2024 Telephone [facility] [address] [place] [address] Christopher Boogie MD Prior Authorization 08/05/2024 Refill [facility] [address] [place] [address] Christopher Boogie MD 07/31/2024 Refill [facility] [address] [place] [address] Christopher Boogie MD 07/26/2024 Refill [facility] [address] [place] [address] Christopher Boogie MD from Last 3 Months [...] 63 07/02/2024 11:35 AM EDT Temperature 36.9 C (98.4 F) 07/02/2024 11:35 AM EDT Respiratory Rate 20 07/02/2024 11:35 AM EDT [...] history exists COVID-19 Vaccine ( season) 2023 Depression Screening 04/21/2024 04/21/2023, 07/31/19 23 Influenza Vaccine (Season Ended) 2024 03/24/2012, 04/16/2011, 04/16/2011 Diabetes: Hemoglobin A1C 01/02/2025 025, 04/29/2023, 02/04/2023, Additional history exists SDOH Screening 05/17/2025 05/17/2024 Tobacco Screening 05/17/2025 05/17/2024 Lipid Panel 06/03/2025 06/03/2024, 04/1 05/2023, 02/04/2023, Additional history exists DTaP/Tdap/Td Vaccines (2 [...] Date Blood 07/02/2024 11:4 7 AM EDT Christopher Krishnan MD POINT OF CARE TEST ENTER/EDIT ORDERABLES Final Result * HIV-1/2 Antigen and Antibodies, Fourth Generation, with Reflexes (06/03/2024 8:06 AM EST) HIV AB/AG Nonreactive Nonreactive [facility] Comment:HIV-1 p24 Ag and/or HIV-1/HIV-2 Ab not detected.A test result that is nonreactive does not exclude thepossibility of exposure to or infection with HIV-1 and/orHIV-2. Nonreactive results in this assay for individualswith prior exposure to HIV-1 and/or HIV-2 may be due toantigen and antibody levels that are below the limit ofdetection of this assay.The [employer] HIV Ag/Ab Combo assay result andsupplemental assay results should be interpreted inconjunction with the patient's clinical presentation,history and other laboratory results. If the results areinconsistent with clinical evidence, additional testing issuggested to confirm the result. Blood Venous blood specimen / Unknown 06/03/2024 8:06 AM EST 06/03/2024 2:06 PM EST us Christopher Krishnan MD LAB BLOOD ORDERABL ES Final Result [facility] [address] [place] [phone] * (ABNORMAL) Lipid Panel, Standard (06/03/2024 8:06 AM EST) Triglycerides 100 <150 mg/dL [facility] Comment:Desirable Triglyceri de: less than 150 mg/dLBorderline High Triglyceride 150-199 mg/dLHigh Triglyceride: 200-499 mg/dLVery High Triglyceride: greater than or equal to 5OO mg/dL Cholesterol 148 <200 mg/dL [facility] Comment:Desirable Cholestero l: less than 200 mg/dLBorderline High Cholesterol: 200-239 mg/dLHigh Cholesterol: greater than 239 mg/dL LDL Cholesterol Calculated 94 <100 mg/dL [facility] Comment:Desirable LDL: less than 100 mg/dLNear Optimal/Above Optimal LDL: 110- 129 mg/dLBorderline High LDL: 130-159 mg/dLHigh LDL: 160-189 mg/dLVery High LDL: greater than or equal to 190 mg/dL HDL Cholesterol 34(L) >40 mg/dL [facility] Comment:Desirable HDL: great er than 40 mg/dL Note: This HDL assay may give artificially low results in patients with liver disease. Blood Venous blood specimen / Unknown 06/03/2024 8:06 AM EST 06/03/2024 2:06 PM EST us Christopher Krishnan MD LAB BLOOD ORDERABL ES Final Result Performing Organization Address [facility] Co de Phone Number [facility] [address] [place] [address] [phone] * Hepatitis C Antibody with Reflex to HCV, RNA, Quantitative, Real-Time PCR (04/29/2023 1:00 PM EST) Hepatitis C Antibody Nonreactive Nonreactive [facility] Comment:Antibodies to HCV no t detected; does not exclude early acuteHCV infection. Blood Venous blood specimen / Unknown 04/29/2023 1:00 PM EST 04/29/2023 2:42 PM EST Christopher Krishnan MD LAB BLOOD ORDERABL ES Final Result Performing Organization Address [facility] Co de Phone Number [facility] [address] [place] [phone] * MICROALBUMIN/CREATININE RATIO, RANDOM URINE (02/18/2022 9:05 AM EST) Creatinine Urine 49.61 mg/dL [facility] Microalbum/Creati nine Ratio Ur 56.4 ug/mg cr [facility] Comment: Albumin/Creatinine Ratio Reference Ranges: Normal: < 30 ug/mg creatinine Microalbuminuria: 30 - 300 ug/mg creatinine Clinical Albuminuria: > 300 ug/mg creatinine Microalbumin Urine 28.0 mg/L [facility] 02/18/2022 9:05 AM EST Historical Provider HISTORICAL/NON ORDERABLE LABS Final Result Performing Organization Address [facility] Co de Phone Number [facility] from Last 3 Months or Most Recently Relevant to Health Maintenance Insurance [facility] [employer] MEDICARE ADVANTAGE Care Teams Stakes Player Relationship Specialty Start Date End Date Christopher Boogie MD [address] [place] [phone] PCP - General Internal Medicine 09/07/19
== END 2024-10-11 09:57 | disposition home or self-care (01) ==
LOC: HO.HBS 09:17
PROVIDERS: PCP Internal Medicine; Visit Provider Physician Assistant Surgical
DX: E66.9 Obesity, unspecified (principal); Z68.39 Body mass index [BMI] 39.0-39.9, adult; Z98.84 Bariatric surgery status; Z90.3 Acquired absence of stomach [part of]
CPT/HCPCS: 99213

== ENCOUNTER → 2024-10-11 09:16 | Outpatient (BNVA) | payer MEDICARE, MEDICAID, SELFPAY | PROVIDERS: PCP Internal Medicine; Visit Provider Physician Assistant Surgical | DX: Z98.84 Bariatric surgery status (principal); Z79.899 Other long term (current) drug therapy | CPT/HCPCS: 99212 ==

== ENCOUNTER 2024-11-08 13:31 | Outpatient (AMB) | payer MEDICARE, MEDICAID, SELFPAY ==
--- NOTE | 2024-11-08 13:36 | A.OFFVIS_ITS ---
VS Expanded 11/08/24 13:41 BP 165/83 H Blood Pressure Location Rt brachial Blood Pressure Position Sitting Pulse 69 Pulse Source Pulse Oximeter Temp 98.4 F Temperature Source Temporal Artery Scan Pulse Oximetry 96 Oxygen Delivery Method Room Air Height 5 ft 6 in Weight 245 lb 12.8 oz BMI 39.7 Body Fat % 33.1 Body Fat Mass 81.4 Fat Free Mass 164.2 Visceral Fat Rating 22.0 Body Water % 50.9 Body Water Mass 125.0 Muscle Mass/Score 156.0 Basal Metabolic Rate/Score 2,226 Intake Visit Reasons: (OV) PO LSG 07/02/22 Allergies No Known Allergies Allergy (Verified 11/08/24 13:37) HPI Comments Details: This?a?64?yo male who is s/p LSG without hiatal hernia repair on?07/02/2022. Presents for 2 year 3 month post op visit. Weight today is 245.8 pounds, with a BMI of 39.7. There has been a 47 pound weight loss,(initial weight 292.8 pounds) since starting the program on 04/22/2022 reflecting a 16 % total body weight loss and a weight loss of 13.5 pounds since surgery (operative weight 259.3 pounds) reflecting a 5 % TBWL since surgery. No complaints of nausea, emesis, abdominal pain or reflux. Reports infrequent but normal bowel movements every 2-3 days and uses stool softeners regularly. He had not been seen in approximately a year, reestablishing in August 2024. He had been given information regarding right BMI seth. also encouraged to exercise regularly as well as follow the meal plan. Patient states that he has been having a little bit more difficulty sleeping at night with his sleep apnea machine since he has gained weight over the last 10 to 12 months. We will repeat his sleep study to ensure his settings are accurate Meal plan: 7-9 premier protein rtd 6 oz 10-12 another shake 1-3 pure protein bar 4 pm meal 8 forks protein and 8 forks veg 7-9 pure protein bar Drinking 80 oz water ? Exercise routine includes: swimming 4 laps swim, walk 2 laps [employer] gym 3 x per week treadmill speed 3, incline 6-12, 40 min, 250-300 calories. [facility] Medical History DJD (degenerative joint disease) Sleep apnea with use of continuous positive airway pressure (CPAP) Morbid obesity Obesity Goiter Hypogonadism male Vitamin D deficiency HLD (hyperlipidemia) HTN (hypertension) T2DM (type 2 diabetes mellitus) Surgical History History of sleeve gastrectomy H/O arthroscopy of left knee Hx of appendectomy Family History Father Coronary artery disease Hypertension Mother Coronary artery disease Hypertension Stroke Brother Cancer Social History Household Members: Family Housing: House Are you a primary career development engineer to a significant other at home: No Do you presently have visiting nurse or other home services: No Alcohol intake: current Alcohol intake frequency: holidays/special occasions only Alcohol type: wine Patient Tobacco Use Status: Never used Tobacco Advance Directives Date on File: 07/04/22 service: No Physical Exam Const General: healthy appearing and no acute distress Resp Effort & Inspection: normal respiratory effort Auscultation: clear to auscultation bilaterally Cardio Rate: regular rate Rhythm: regular rhythm GI Auscultation: normal bowel sounds Extrem General: Yes normal to inspection Assessment & Plan Assessment & Plan (1) S/P laparoscopic sleeve gastrectomy: Code(s): Z98.84 - Bariatric surgery status Category: Surgical Plan: Patient continues to follow the right BMI seth. He did choose the aggressive plan, and we will have him reset this for the recommended plan. Additionally, encouraged to increase his exercise from 3 days to 4 days, increasing time on the bike from 30 minutes to 35 minutes, increasing swimming in the pool from 4 laps 2 5 laps as he is able, increasing consistently once weekly. We will have him return to the office in approximately 6 weeks. His Zepbound has been denied by his insurance company although he is currently in an appeal. (2) Sleep apnea with use of continuous positive airway pressure (CPAP): Code(s): G47.30 - Sleep apnea, unspecified Category: Medical Plan: Patient has been having difficulty with his sleep apnea machine. We will have him repeat his sleep study as the last 1 was done when he was 210 lb. Orders: Orders RT home sleep study Today E66.9 - Obesity, unspecified, G47.30 - Sleep apnea, unspecified
[2024-11-08 13:41] VITALS: BP 165/83; PULSE 69; TEMP 36.9; O2SAT 96; BMI 39.7
--- OUTSIDE RECORDS SUMMARY | 2024-11-08 14:14 | XMS_ITS | Clinical Summary ---
Author Organization [employer] Address [address] [facility] 7[address] [place] [address] Care Team Providers Care Child Nurse Name Role Phone Christopher Boogie MD Primary Care Prov ider Allergies No known active allergies Medications fluticasone (Flonase) 50 MCG/ACT nasal spray inhale 1 spray by intranasal route every day in each nostril as needed for allergies 020 Active traMADol (Ultram) 50 MG tablet take 1 Tablet by Oral route every 6 hours Active Blood Pressure Monitor [facility] Check blood pressure on arm as directed [...] EVERY MORNING 90 tablet 3 025 Active Syringe/Needle, Disp, (B-D 3CC LUER-ALLYN SYR 22GX1 ) 22G X 1 3 ML misc USE WEEKLY FOR TESTOSTERONE ADMINISTRATION 14 each 025 Active testosterone cypionate (Depo-Testoster one) 200 MG/ML injectionIndica tions:Hypogonad ism in male INJECT 0.5 ML INTO THE MUSCLES EVERY 14 DAYS 2 mL 2 025 Active topiramate 50 MG tablet TAKE TWO TABLETS TWICE DAILY 60 tablet 1 025 Active topiramate 50 MG tablet TAKE TWO TABLETS TWICE DAILY 60 tablet 1 025 2024 Discontinued testosterone cypionate (Depo-Testoster one) 200 MG/ML injectionIndica tions:Hypogonad ism in male INJECT 0.5 ML INTO THE MUSCLES EVERY 14 DAYS 2 mL 2 025 2024 Discontinued Active Problems Problem Noted [...] recommended reduction of 20-30% of maintenance calories; family and consumer education teacher referral offered. Recommended to decrease soda and [...] Encounters Date Type Department Care Team Description 11/05/2024 Refill [facility] [address] [place] [address] Christopher Boogie MD 10/20/2024 Refill [facility] [address] [place] [address] Christopher Boogie MD Hypogonadism in male 09/17/2024 Refill [facility] [address] [place] [address] Christopher Boogie MD 08/18/2024 Refill [facility] [address] [place] [address] Christopher Boogie MD Hypogonadism in male 08/11/2024 Telephone [facility] [address] [place] [address] Christopher Boogie MD Prior Authorization from Last 3 Months Immunizations Immunization Administration [...] 09/27/2020, Additional history exists COVID-19 Vaccine ( - season) 2023 Depression Screening 04/21/2024 04/21/2023, 07/31/19 23 Influenza Vaccine (#1) 2024 2, 04/16/2011, 04/16/2011 Diabetes: Hemoglobin A1C 01/02/2025 025, [...] 8:06 AM EST) HIV AB/AG Nonreactive Nonreactive [facility] Comment:HIV-1 p24 Ag and/or HIV-1/HIV-2 Ab not detected.A test result that is nonreactive does not exclude thepossibility of exposure to or infection with HIV-1 and/orHIV-2. Nonreactive results in this assay for individualswith prior exposure to HIV-1 and/or HIV-2 may be due toantigen and antibody levels that are below the limit ofdetection of this assay.The [employer] HIV Ag/Ab Combo assay result andsupplemental assay results should be interpreted inconjunction with the patient's clinical presentation,history and other laboratory results. If the results areinconsistent with clinical evidence, additional testing issuggested to confirm the result. Blood Venous blood specimen / Unknown 06/03/2024 8:06 AM EST 06/03/2024 2:06 PM EST us Christopher Krishnan MD LAB BLOOD ORDERABL ES Final Result [facility] [address] [place] [phone] * (ABNORMAL) Lipid Panel, Standard (06/03/2024 8:06 AM EST) Triglycerides 100 <150 mg/dL [facility] Comment:Desirable Triglyceri de: less than 150 mg/dLBorderline High Triglyceride 150-199 mg/dLHigh Triglyceride: 200-499 mg/dLVery High Triglyceride: greater than or equal to 5OO mg/dL Cholesterol 148 <200 mg/dL [facility] Comment:Desirable Cholestero l: less than 200 mg/dLBorderline High Cholesterol: 200-239 mg/dLHigh Cholesterol: greater than 239 mg/dL LDL Cholesterol Calculated 94 <100 mg/dL [facility] Comment:Desirable LDL: less than 100 mg/dLNear Optimal/Above Optimal LDL: 110- 129 mg/dLBorderline High LDL: 130-159 mg/dLHigh LDL: 160-189 mg/dLVery High LDL: greater than or equal to 190 mg/dL HDL Cholesterol 34(L) >40 mg/dL [facility] Comment:Desirable HDL: great er than 40 mg/dL Note: This HDL assay may give artificially low results in patients with liver disease. Blood Venous blood specimen / Unknown 06/03/2024 8:06 AM EST 06/03/2024 2:06 PM EST Christopher Krishnan MD LAB BLOOD ORDERABL ES Final Result Performing Organization Address [facility] Co de Phone Number [facility] [address] [place] [address] [phone] * Hepatitis C Antibody with Reflex to HCV, RNA, Quantitative, Real-Time PCR (04/29/2023 1:00 PM EST) Hepatitis C Antibody Nonreactive Nonreactive [facility] Comment:Antibodies to HCV no t detected; does not exclude early acuteHCV infection. Blood Venous blood specimen / Unknown 04/29/2023 1:00 PM EST 04/29/2023 2:42 PM EST Christopher Krishnan MD LAB BLOOD ORDERABL ES Final Result Performing Organization Address [facility] Co de Phone Number [facility] [address] [place] [phone] [phone] * MICROALBUMIN/CREATININE RATIO, RANDOM URINE (02/18/2022 [...] ORDERABLE LABS Final Result Performing Organization Address [facility] Co de Phone Number [facility] from Last 3 Months or Most Recently Relevant to Health Maintenance Insurance [facility] MEDICARE ADVANTAGE Care Teams Child Nurse Relationship Specialty Start Date End Date Christopher Boogie MD [address] [place] [phone] PCP - General Internal Medicine 09/07/19
--- OUTSIDE RECORDS SUMMARY | 2024-11-08 14:14 | XMS_ITS | Clinical Summary ---
Author Organization [facility] Address [address] [facility] [address] [place] [address] Phone Care Team Providers Care Solid Waste Manager Name Role Phone Christopher Garcia Primary Care Provider + [phone] Allergies No known active allergies Medications GABAPENTIN PO gabapentin Take No date recorded No form recorded No frequency recorded No route recorded No set duration recorded No set duration amount recorded active No dosage strength recorded No dosage strength units of measure recorded Active METOPROLOL SUCCINATE PO Take 100 mg by mouth 1 (one) time each day Active aspirin (ST DANNY) 81 MG EC tablet take 1 tablet by oral route every day 08/02/19 22 Active atorvastatin (LIPITOR) 40 MG tablet Take 40 mg by mouth in the morning. 04/22/19 23 Active baclofen (LIORESAL) 10 MG tablet prn Active cetirizine (ZyrTEC) 10 MG tablet take 1 tablet by oral route every day 01/30/20 22 Active clotrimazole (LOTRIMIN) 1 % cream apply by topical route 2 times every day to the affected and surrounding areas of skin in the morning and evening as needed for foot rash 06/24/19 21 Active diclofenac (VOLTAREN) 75 MG EC tablet Take 1 tablet by mouth 03/18/20 22 Active fluticasone (FLONASE) 50 MCG/ACT nasal spray inhale 1 spray by intranasal route every day in each nostril as needed for allergies 11/29/19 20 Active hydroCHLOROthi azide 25 MG tablet Take 1 tablet by mouth 1 (one) time each day 04/26/19 23 Active traMADol (ULTRAM) 50 MG tablet Take 50 mg by mouth every 6 (six) hours if needed for moderate pain Active sucralfate (CARAFATE) 1 GM/10ML suspension TAKE 10 ml's BY MOUTH TWICE DAILY 08/02/19 23 Active testosterone cypionate (DEPO-TESTOTER ONE) 200 MG/ML injection INJECT 0.4 ML INTRAMUSCULARLY EVERY WEEK 07/17/19 23 Active pantoprazole (PROTONIX) 40 MG EC tablet Take 1 tablet by mouth 1 (one) time each day 06/18/19 23 Active Active Problems Problem Noted Date Diagnosed Date Hypertension 05/01/2022 Pain 04/04/2022 Sprain of unspecified site of right knee, initia l encounter 03/18/2022 Strain of tendon of foot and ankle 03/14/2022 Seasonal allergy 01/02/2018 Uncontrolled type 2 diabetes mellitus 01/02/2018 Overview (01/13/2024): Last Assessment & Plan: Controlled, off DM medications, continue diet and exercise as tolerated, will follow up in 3 months Replacing diagnoses that were inactivated after the 01/13/24 Regulatory Import Resolved Problems Problem Noted Date Diagnosed Date Resolved Date Type 2 diabetes mellitus 05/01/2022 Vitamin D deficiency 03/27/2022 023 Chronic back pain 01/02/2018 05/01/2022 Testosterone level below reference range 01/02/2018 05/01/2022 Hyperlipidemia 01/02/2018 05/01/2022 Nonalcoholic steatohepatitis (GODINEZ) 01/02/2018 05/01/2022 Obstructive sleep apnea syndrome 01/02/2018 05/01/2022 Opioid dependence 01/02/2018 05/01/2022 Immunizations Immunization Administration Dates Next Due Influenza Split 03/24/2012 Influenza, Unspecified 04/16/2011 Pneumococcal Polysaccharide 06/30/2009 Td 06/30/2009 Tdap 10/22/2021 Social History Tobacco Use Types Packs/Day Years Used Date Smoking Tobacco: Never Smokeless Tobacco: Never Tobacco Cessation:Counseling Given: Not Answered Alcohol Use Standard Drinks/Week Comments Yes 0 (1 standard drink = 0.6 oz pur e alcohol) Sex and Gender Information Value Date Recorded Sex Assigned at Not on file Legal Sex Male 9:04 AM EDT Gender Identity Not on file Sexual Orientation Not on file Last Filed Vital Signs Vital Sign Reading Time Taken Comments Blood Pressure 128/64 08/05/2022 2:55 PM EDT Pulse 74 08/05/2022 2:55 PM EDT Temperature - - Respiratory Rate - - Oxygen Saturation 96% 05/06/2022 3:39 PM EST Inhaled Oxygen Concentration - - Weight 106 kg (233 lb 3.2 oz) 08/05/2022 2:55 PM EDT Height - - Body Mass Index - - Plan of Treatment Health Maintenance Due Date Last Done Comments Pneumococcal Vaccine: 50+ Years (2 of 2 - PCV) 06/30/2010 06/30/2009 Colorectal Cancer Screening: Annual FOBT 2011 Colorectal Cancer Screening: Colonoscopy 2011 Colorectal Cancer Screening: Sigmoidoscopy 2011 Diabetes: Ophthalmology Exam 05/01/2022 Diabetes: Pedal Pulse Checked 05/01/2022 Diabetes: Sensory Foot Exam 05/01/2022 Diabetes: Visual Foot Exam 05/01/2022 Diabetes: Hemoglobin A1C 10/29/2022 023, 04/23/2022 Influenza Vaccine (#1) 2024 2, 04/16/2011 Pneumococcal Vaccine: Peds ( 0 to 5 Years) and At-Risk Patients (6 to 49 Years) Discontinued 06/30/2009 Hepatitis B Vaccine Aged Out No longe r eligible based on patient's age to complete this topic Insurance UHC Medicare Member Subscriber Plan / Payer (Ef fective 2022-Present) Name:Demetris Byrd Relation to Subscriber:Self Name:Demetris Byrd Payer ID:[id number] (NAIC) Type:Not on file Address: [address] [phone] [place] [facility] Medicare Medicaid [place] Care Teams Solid Waste Manager Relationship Specialty Start Date End Date Christopher Garcia PCP - General Internal Medicine 01/30/22
== END 2024-11-08 14:01 | disposition home or self-care (01) ==
LOC: HO.HBS 13:32
PROVIDERS: PCP Internal Medicine; Visit Provider Physician Assistant Surgical
DX: G47.30 Sleep apnea, unspecified (principal); Z98.84 Bariatric surgery status
CPT/HCPCS: 99213; G2211

== ENCOUNTER → 2024-11-08 13:31 | Outpatient (BNVA) | payer MEDICARE, MEDICAID, SELFPAY | PROVIDERS: PCP Internal Medicine; Visit Provider Physician Assistant Surgical | DX: Z98.84 Bariatric surgery status (principal); G47.30 Sleep apnea, unspecified | CPT/HCPCS: 99212 ==

== ENCOUNTER 2024-12-06 10:49 | Outpatient (AMB) | payer MEDICARE, MEDICAID, SELFPAY ==
--- NOTE | 2024-12-06 10:54 | MHC.OFFVISWM ---
VS Expanded 12/06/24 11:05 BP 179/93 H Blood Pressure Location Lt brachial Blood Pressure Position Sitting Pulse 72 Pulse Source Pulse Oximeter Temp 96.7 F L Temperature Source Temporal Artery Scan Pulse Oximetry 96 Oxygen Delivery Method Room Air Height 5 ft 6 in Weight 239 lb 4 oz BMI 38.6 Body Fat % 34.7 Body Fat Mass 82.8 Fat Free Mass 156.4 Visceral Fat Rating 22.0 Body Water % 47.5 Body Water Mass 113.6 Muscle Mass/Score 148.6 Basal Metabolic Rate/Score 2,119 Intake Visit Reasons: (OV) PO LSG 07/02/22 Notching Press Operator Required: No Allergies No Known Allergies Allergy (Verified 11/08/24 13:37) Medication List - Last Reconciled 12/06/24 by CASSY Ellsworth blood pressure test kit-large As directed hydrochlorothiazide 25 mg PO DAILY losartan 100 mg PO DAILY metoprolol succinate ER 100 mg PO DAILY Held on 07/03/22. Instructions: Resume on 07/04/22. Check your blood pressure every evening and send it to Dr. Alvarado. Do not take the medication before you hear from Dr. Alvarado. Do not take the medication if your blood pressure is below 120/70 mmHg. ogermkshqijb-lbw-ydbk-FA-vit K 45 mg iron- 800 mcg-120 mcg (Bariatric Multivitamins) caps PO syringe with needle As directed weekly for testosterone administration syringe with needle As directed testosterone cypionate 80 mg IM QWEEK Held on 07/03/22. Instructions: Resume on 08/01/22. tirzepatide (weight loss) (Zepbound) 2.5 mg (0.5 mL) subcut QWEEK tramadol 50 mg PO Q8H PRN HPI Comments Details: This?a?64?yo male who is s/p LSG without hiatal hernia repair on?07/02/2022. Presents for 2 year 5 month post op visit. Weight today is 239.4 pounds, with a BMI of 38.6. There has been a 53.4 pound weight loss,(initial weight 292.8 pounds) since starting the program on 04/22/2022 reflecting a 22.3 % total body weight loss and a weight loss of 19.9 pounds since surgery (operative weight 259.3 pounds) reflecting a 7.6 % TBWL since surgery. No complaints of nausea, emesis, abdominal pain or reflux. Reports infrequent but normal bowel movements every 2-3 days and uses stool softeners regularly. He had not been seen in approximately a year, reestablishing in August 2024. He had been given information regarding right BMI seth. also encouraged to exercise regularly as well as follow the meal plan. Patient states that he has been having a little bit more difficulty sleeping at night with his sleep apnea machine since he has gained weight over the last 10 to 12 months. He is scheduled for sleep study 12/12/24. Not following meal plan over last 10 days with fasting 16 hours home at 2 pm then has a bar or shake entire bottle mixed with 8 oz black coffee, meal at 6-7 pm 8 forks and 8 forks another bar or shake at 9 pm Meal plan: 7-9 premier protein rtd 6 oz 10-12 another shake 1-3 pure protein bar 4 pm meal 8 forks protein and 8 forks veg 7-9 pure protein bar Drinking 80 oz water ? Exercise routine includes: swimming 4 laps swim, walk 2 laps [employer] [facility] 3 x per week treadmill speed 3, incline 6-12, 20 min, 150 calories. [facility] Medical History DJD (degenerative joint disease) Sleep apnea with use of continuous positive airway pressure (CPAP) Morbid obesity Obesity Goiter Hypogonadism male Vitamin D deficiency HLD (hyperlipidemia) HTN (hypertension) T2DM (type 2 diabetes mellitus) Surgical History History of sleeve gastrectomy H/O arthroscopy of left knee Hx of appendectomy Family History Father Coronary artery disease Hypertension Mother Coronary artery disease Hypertension Stroke Brother Cancer Social History Household Members: Family Housing: House Are you a primary memory care director to a significant other at home: No Do you presently have visiting nurse or other home services: No Alcohol intake: current Alcohol intake frequency: holidays/special occasions only Alcohol type: wine Patient Tobacco Use Status: Never used Tobacco Advance Directives Date on File: 07/04/22 service: No Physical Exam Const General: healthy appearing and no acute distress Resp Effort & Inspection: normal respiratory effort Auscultation: clear to auscultation bilaterally Cardio Rate: regular rate Rhythm: regular rhythm GI Auscultation: normal bowel sounds Extrem General: Yes normal to inspection Assessment & Plan Assessment & Plan (1) S/P laparoscopic sleeve gastrectomy: Code(s): Z98.84 - Bariatric surgery status Category: Surgical Plan: Patient has been doing intermittent fasting. Discussed the negative aspects to this including longevity and his reliance on caffeinated beverages until 2 in the afternoon when he begins his 1st shake. Discussed returning to right [employer] seth as a more sustainable long-term plan. Additionally, regarding his exercise, he has been using the treadmill only 20 minutes because of his ongoing right hip pain. He is being followed by pain management. Discussed utilizing the pool as he had been doing previously, walking in the pool as well as swimming. Discussed moving his while it from his right back pocket to his left front pocket to alleviate additional strain on the SI joint. Return to clinic as scheduled.
[2024-12-06 11:05] VITALS: BP 179/93; PULSE 72; TEMP 35.9; O2SAT 96; BMI 38.6
--- OUTSIDE RECORDS SUMMARY | 2024-12-06 12:04 | XMS_ITS | Clinical Summary ---
Author Organization [facility] Address [address] [facility] [address] [place] [address] Phone Care Team Providers Care Table And Desk Finisher Name Role Phone Christopher Garcia Primary Care Provider + [phone] Allergies No known active allergies Medications GABAPENTIN [...] Payer ID:[id number] (NAIC) Type:Not on file Address: [address] [address] [place] [facility] Medicare Medicaid [place] Care Teams Table And Desk Finisher Relationship Specialty Start Date End Date Christopher Garcia PCP - General Internal Medicine 01/30/22
--- OUTSIDE RECORDS SUMMARY | 2024-12-06 12:04 | XMS_ITS | Clinical Summary ---
Author Organization [employer] Address [address] [facility] 7t [place] [address] Care Team Providers Care Silversmith Apprentice Name Role Phone Christopher Boogie MD Primary Care Prov ider Allergies No known active allergies Medications fluticasone (Flonase) 50 MCG/ACT nasal spray inhale 1 spray by intranasal route every day in each nostril as needed for allergies 020 Active traMADol (Ultram) 50 MG tablet take 1 Tablet by Oral route every 6 hours Active Blood Pressure Monitor [facility] Check blood pressure on arm as directed [...] JUICE, AND DRINK DAILY NEEDED / DIRECTED Active hydroCHLOROthia zide (HYDRODiuril) 25 MG tabletIndicatio [...] TWICE DAILY 60 tablet 1 025 Active metoprolol succinate XL (Toprol-XL) 100 MG 24 hr tablet TAKE ONE TABLET EVERY MORNING, DO NOT BREAK, CRUSH, DISSOLVE OR CHEW 90 tablet 3 025 Active metoprolol succinate XL (Toprol-XL) 100 MG 24 hr tablet TAKE ONE TABLET EVERY MORNING, DO NOT BREAK, CRUSH, DISSOLVE OR CHEW 90 tablet 3 024 2024 Discontinued Active Problems Problem Noted Date [...] recommended reduction of 20-30% of maintenance calories; account services associate referral offered. Recommended to decrease soda and [...] Encounters Date Type Department Care Team Description 11/20/2024 Refill [facility] [address] [place] [address] Jeanette Bean MD 11/05/2024 Refill [facility] [address] [place] [address] Christopher Boogie MD 10/20/2024 Refill [facility] [address] [place] [address] Christopher Boogie MD Hypogonadism in male 09/17/2024 Refill [facility] [address] [place] [address] Christopher Boogie MD from Last 3 Months [...] Media Lot # [id number] Lot# Expiration Date 102 Blood 07/02/2024 11:4 7 AM EDT Christopher Krishnan MD POINT OF CARE TEST ENTER/EDIT ORDERABLES Final Result * HIV-1/2 Antigen and Antibodies, Fourth Generation, with Reflexes (06/03/2024 8:06 AM EST) HIV AB/AG Nonreactive Nonreactive [facility] Comment:HIV-1 p24 Ag and/or HIV-1/HIV-2 Ab not detected.A test result that is nonreactive does not exclude thepossibility of exposure to or infection with HIV-1 and/orHIV-2. Nonreactive results in this assay for individualswith prior exposure to HIV-1 and/or HIV-2 may be due toantigen and antibody levels that are below the limit ofdetection of this assay.The [employer] HIV Ag/Ab Combo assay result andsupplemental assay results should be interpreted inconjunction with the patient's clinical presentation,history and other laboratory results. If the results areinconsistent with clinical evidence, additional testing issuggested to confirm the result. Blood Venous blood specimen / Unknown 06/03/2024 8:06 AM EST 06/03/2024 2:06 PM EST us Christopher Krishnan MD LAB BLOOD ORDERABL ES Final Result Performing Organization Address [facility] Co de Phone Number [facility] [address] [place] [phone] * (ABNORMAL) Lipid Panel, Standard (06/03/2024 8:06 AM EST) Triglycerides 100 <150 mg/dL [facility] Comment:Desirable Triglyceri de: less than 150 mg/dLBorderline High Triglyceride 150-199 mg/dLHigh Triglyceride: 200-499 mg/dLVery High Triglyceride: greater than or equal to 5OO mg/dL Cholesterol 148 <200 mg/dL [facility] Comment:Desirable Cholestero l: less than 200 mg/dLBorderline High Cholesterol: 200-239 mg/dLHigh Cholesterol: greater than 239 mg/dL LDL Cholesterol Calculated 94 <100 mg/dL [facility] Comment:Desirable LDL: less than 100 mg/dLNear Optimal/Above Optimal LDL: 110- 129 mg/dLBorderline High LDL: 130-159 mg/dLHigh LDL: 160-189 mg/dLVery High LDL: greater than or equal to 190 mg/dL HDL Cholesterol 34(L) >40 mg/dL [facility] Comment:Desirable HDL: great er than 40 mg/dL Note: This HDL assay may give artificially low results in patients with liver disease. Blood Venous blood specimen / Unknown 06/03/2024 8:06 AM EST 06/03/2024 2:06 PM EST us Christopher Krishnan MD LAB BLOOD ORDERABL ES Final Result Performing Organization Address City/[facility]/ZIP Co de Phone Number [facility] [address] [place] [phone] * Hepatitis C Antibody with Reflex to HCV, RNA, Quantitative, Real-Time PCR (04/29/2023 1:00 PM EST) Hepatitis C Antibody Nonreactive Nonreactive [facility] Comment:Antibodies to HCV no t detected; does not exclude early acuteHCV infection. Blood Venous blood specimen / Unknown 04/29/2023 1:00 PM EST 04/29/2023 2:42 PM EST Christopher Krishnan MD LAB BLOOD ORDERABL ES Final Result Performing Organization Address City/[facility]/ZIP Co de Phone Number [facility] [address] [place] [phone] * MICROALBUMIN/CREATININE RATIO, RANDOM URINE (02/18/2022 [...] ORDERABLE LABS Final Result Performing Organization Address City/[facility] Co de Phone Number [facility] from Last 3 Months or Most Recently Relevant to Health Maintenance Insurance COUNT INCLUDES THE [facility] MEDICARE ADVANTAGE Care Teams Silversmith Apprentice Relationship Specialty Start Date End Date Christopher Boogie MD [address] [place] [address] [place] [id number] PCP - General Internal Medicine 09/07/19
== END 2024-12-06 11:36 | disposition home or self-care (01) ==
LOC: HO.HBS 10:50
PROVIDERS: PCP Internal Medicine; Visit Provider Physician Assistant Surgical
DX: E66.9 Obesity, unspecified (principal); Z68.38 Body mass index [BMI] 38.0-38.9, adult; Z90.3 Acquired absence of stomach [part of]; Z98.84 Bariatric surgery status
CPT/HCPCS: 99213

== ENCOUNTER → 2024-12-06 10:49 | Outpatient (BNVA) | payer MEDICARE, MEDICAID, SELFPAY | PROVIDERS: PCP Internal Medicine; Visit Provider Physician Assistant Surgical | DX: Z98.84 Bariatric surgery status (principal) | CPT/HCPCS: 99212 ==

== ENCOUNTER → 2024-12-12 19:30 | Outpatient (REF) | payer MEDICARE, MEDICAID, SELFPAY ==
--- OUTSIDE RECORDS SUMMARY | 2024-12-12 21:22 | XMS_ITS | Encounter Summary ---
Author Organization [employer] Address [address] [facility] 7t [place] [address] Care Team Providers Care Mechanical Reliability Engineer Name Role Phone Christopher Boogie MD Primary Care Prov ider Encounter Details Date Type Department Care Team ([facility] st Contact Info) Description 08/20/2022 Orders Only [facility] [address] [place], [place] [phone] Christopher Boogie MD [address] [place], [place] [phone] Chronic midline low back pain with bilateral [...] Recorded In the last 10 days, have nica u been in contact with someone who [...] documented as of this encounter Care Teams Mechanical Reliability Engineer Relationship Specialty Start Date End Date GarciaChristopher Kurtz MD [address] [place] [phone] PCP - General Internal Medicine 09/07/19 documented as of this encounter
--- OUTSIDE RECORDS SUMMARY | 2024-12-12 21:22 | XMS_ITS | Encounter Summary ---
Author Organization [employer] Address [address] [facility] 7t [place] [address] Care Team Providers Care Executive Administrative Asst Name Role Phone Christopher Boogie MD Primary Care Prov ider Encounter Details Date Type Department Care Team (Late st Contact Info) Description 12/05/2022 Orders Only [facility] [address] [place] [address] Christopher Boogie MD [address] [place] [address] Social History Tobacco Use Types Packs/Day Years [...] documented as of this encounter Care Teams Executive Administrative Asst Relationship Specialty Start Date End Date Christopher Boogie MD [address] [place] [address] PCP - General Internal Medicine 09/07/19 documented as of this encounter
--- OUTSIDE RECORDS SUMMARY | 2024-12-12 21:22 | XMS_ITS | Clinical Summary ---
Author Organization [facility] Address [address] [facility] [address] [place] [address] Phone Care Team Providers Care Aviation Project Manager Name Role Phone Christopher Garcia Primary Care Provider + [phone] Allergies No known active allergies Medications GABAPENTIN [...] Payer ID:[id number] (NAIC) Type:Not on file Address: [address] [phone] [place] [facility] [place] [phone] Medicaid [place] Care Teams Aviation Project Manager Relationship Specialty Start Date End Date Christopher Garcia PCP - General Internal Medicine 01/30/22
--- OUTSIDE RECORDS SUMMARY | 2024-12-12 21:22 | XMS_ITS | Clinical Summary ---
Author Organization [employer] Address [address] [facility] 7[address] [place] [address] Care Team Providers Care Lingo Cleaner Name Role Phone Christopher Boogie MD Primary Care Prov ider Allergies No known active allergies Medications fluticasone (Flonase) 50 MCG/ACT nasal spray inhale 1 spray by intranasal route every day in each nostril as needed for allergies 020 Active traMADol (Ultram) 50 MG tablet take 1 Tablet by Oral route every 6 hours Active Blood Pressure Monitor [facility] [place] [place] Check blood pressure on arm as directed [...] recommended reduction of 20-30% of maintenance calories; rags laborer referral offered. Recommended to decrease soda and [...] Type Department Care Team Description 11/20/2024 Refill [facility] [address] [place] [address] Jeanette Bean MD 11/05/2024 Refill [facility] [address] [place] [address] Christopher Boogie MD 10/20/2024 Refill [facility] [address] [place] [address] Christopher Boogie MD Hypogonadism in male 09/17/2024 Refill [facility] [address] [place] [address] Christopher Boogie MD from Last 3 Months [...] Media Lot # [id number] Lot# Expiration Date 622 Blood 07/02/2024 11:4 7 AM EDT Christopher Krishnan MD POINT OF CARE TEST ENTER/EDIT ORDERABLES Final Result * HIV-1/2 Antigen and Antibodies, Fourth Generation, with Reflexes (06/03/2024 8:06 AM EST) HIV AB/AG Nonreactive Nonreactive [facility] Comment:HIV-1 p24 Ag and/or HIV-1/HIV-2 Ab not detected.A test result that is nonreactive does not exclude thepossibility of exposure to or infection with HIV-1 and/orHIV-2. Nonreactive results in this assay for individualswith prior exposure to HIV-1 and/or HIV-2 may be due toantigen and antibody levels that are below the limit ofdetection of this assay.The [employer] HIV Ag/Ab Combo assay result andsupplemental assay results should be interpreted inconjunction with the patient's clinical presentation,history and other laboratory results. If the results areinconsistent with clinical evidence, additional testing issuggested to confirm the result. Blood Venous blood specimen / Unknown 06/03/2024 8:06 AM EST 06/03/2024 2:06 PM EST us Christopher Krishnan MD LAB BLOOD ORDERABL ES Final Result Performing Organization Address [facility] Co de Phone Number [facility] [address] [place] [phone] * (ABNORMAL) Lipid Panel, Standard (06/03/2024 8:06 AM EST) Triglycerides 100 <150 mg/dL [facility] Comment:Desirable Triglyceri de: less than 150 mg/dLBorderline High Triglyceride 150-199 mg/dLHigh Triglyceride: 200-499 mg/dLVery High Triglyceride: greater than or equal to 5OO mg/dL Cholesterol 148 <200 mg/dL [facility] Comment:Desirable Cholestero l: less than 200 mg/dLBorderline High Cholesterol: 200-239 mg/dLHigh Cholesterol: greater than 239 mg/dL LDL Cholesterol Calculated 94 <100 mg/dL [facility] Comment:Desirable LDL: less than 100 mg/dLNear Optimal/Above Optimal LDL: 110- 129 mg/dLBorderline High LDL: 130-159 mg/dLHigh LDL: 160-189 mg/dLVery High LDL: greater than or equal to 190 mg/dL HDL Cholesterol 34(L) >40 mg/dL [facility] Comment:Desirable HDL: great er than 40 mg/dL Note: This HDL assay may give artificially low results in patients with liver disease. Blood Venous blood specimen / Unknown 06/03/2024 8:06 AM EST 06/03/2024 2:06 PM EST us Christopher Krishnan MD LAB BLOOD ORDERABL ES Final Result Performing Organization Address City/[facility]/ZIP Co de Phone Number [facility] [address] [place] [phone] * Hepatitis C Antibody with Reflex to HCV, RNA, Quantitative, Real-Time PCR (04/29/2023 1:00 PM EST) Hepatitis C Antibody Nonreactive Nonreactive [facility] Comment:Antibodies to HCV no t detected; does not exclude early acuteHCV infection. Blood Venous blood specimen / Unknown 04/29/2023 1:00 PM EST 04/29/2023 2:42 PM EST Christopher Krishnan MD LAB BLOOD ORDERABL ES Final Result Performing Organization Address City/[facility]/ZIP Co de Phone Number [facility] [address] [place] [phone] * MICROALBUMIN/CREATININE RATIO, RANDOM URINE (02/18/2022 [...] ORDERABLE LABS Final Result Performing Organization Address City/[facility] Co de Phone Number [facility] from Last 3 Months or Most Recently Relevant to Health Maintenance Insurance [facility] MEDICARE ADVANTAGE Care Teams Lingo Cleaner Relationship Specialty Start Date End Date Christopher Boogie MD [address] [place] [address] [place] [address] PCP - General Internal Medicine 09/07/19
== END ==
LOC: HO.SL 19:30
PROVIDERS: PCP Internal Medicine; Visit Provider Physician Assistant Surgical
DX: G47.33 Obstructive sleep apnea (adult) (pediatric) (principal); R06.83 Snoring
CPT/HCPCS: 95811

== ENCOUNTER → 2024-12-12 20:35 | Outpatient (BNV) | payer MEDICARE, MEDICAID, SELFPAY | PROVIDERS: PCP Internal Medicine; Visit Provider Internal Medicine | DX: G47.33 Obstructive sleep apnea (adult) (pediatric) (principal); R06.83 Snoring | CPT/HCPCS: 95811 ==

== ENCOUNTER 2024-12-27 13:35 | Outpatient (AMB) | payer MEDICARE, MEDICAID, SELFPAY ==
--- NOTE | 2024-12-27 13:23 | MHC.OFFVISWM ---
VS Expanded 12/27/24 13:34 Height 5 ft 6 in Weight 236 lb BMI 38.1 Intake Visit Reasons: TV PO LSG 07/02/22 Allergies No Known Allergies Allergy (Verified 11/08/24 13:37) Medication List - Last Reconciled 12/27/24 by CASSY Bolton blood pressure test kit-large As directed hydrochlorothiazide 25 mg PO DAILY losartan 100 mg PO DAILY metoprolol succinate ER 100 mg PO DAILY Held on 07/03/22. Instructions: Resume on 07/04/22. Check your blood pressure every evening and send it to Dr. Alvarado. Do not take the medication before you hear from Dr. Alvarado. Do not take the medication if your blood pressure is below 120/70 mmHg. vhiwcbxkvakh-txz-yyii-FA-vit K 45 mg iron- 800 mcg-120 mcg (Bariatric Multivitamins) caps PO syringe with needle As directed weekly for testosterone administration syringe with needle As directed testosterone cypionate 80 mg IM QWEEK Held on 07/03/22. Instructions: Resume on 08/01/22. tirzepatide (weight loss) (Zepbound) 2.5 mg (0.5 mL) subcut QWEEK tramadol 50 mg PO Q8H PRN HPI Comments Details: This?is a?64?yo M who is s/p LSG 07/02/2022. He had not been seen in approximately a year, reestablishing in August 2024. Had been able to get weight down to 215lbs previously. He had been given information regarding [employer] seth. He does have the seth but has not been using strictly. He was scheduled for sleep study 12/12/24 and had confirmed ongoing VERONICA with over 20 episodes of apnea- qualified as severe. Not following meal plan over last 10 days with fasting 16 hours home at 2 pm then has a bar or shake entire bottle mixed with 8 oz black coffee meal at 6-7 pm 8 forks and 8 forks another bar or shake at 9 pm thinks he is getting 80g protein; the seth had told him to have an additional shake and bar in AM but he skips this Meal plan given previously: 7-9am premier protein rtd 6 oz 10-12am another shake 1-3pm pure protein bar 4pm meal 8 forks protein and 8 forks veg 7-9pm pure protein bar Drinking 80 oz water Exercise routine includes: swimming 4 laps swim, walk 2 laps [employer] gym 3 x per week treadmill speed 3, incline 6-12, 20 min, 150 calories. PFSH Medical History DJD (degenerative joint disease) Sleep apnea with use of continuous positive airway pressure (CPAP) Morbid obesity Obesity Goiter Hypogonadism male Vitamin D deficiency HLD (hyperlipidemia) HTN (hypertension) T2DM (type 2 diabetes mellitus) Surgical History History of sleeve gastrectomy H/O arthroscopy of left knee Hx of appendectomy Family History Father Coronary artery disease Hypertension Mother Coronary artery disease Hypertension Stroke Brother Cancer Social History Household Members: Family Housing: House Are you a primary director long term care to a significant other at home: No Do you presently have visiting nurse or other home services: No Alcohol intake: current Alcohol intake frequency: holidays/special occasions only Alcohol type: wine Patient Tobacco Use Status: Never used Tobacco Advance Directives Date on File: 07/04/22 service: No Telehealth Telehealth Telehealth Platform: Telephone Location of provider rendering services: other Location of patient: address on file Patient Identification confirmed using: Name, : Yes Telehealth method: voice only Patient verbally consented to treatment: Yes Patient verbally consented to billing insurance company: Yes Patient informed of any privacy concerns related to visit: Yes Minutes spent on Phone/Video with Pt.: 16 Assessment & Plan Assessment & Plan (1) Obesity: Code(s): E66.9 - Obesity, unspecified Category: Medical Qualifiers: Obesity type: due to excess calories (2) S/P laparoscopic sleeve gastrectomy: Code(s): Z98.84 - Bariatric surgery status Category: Surgical Plan Will resubmit for Zepbound based on recent sleep study results showing severe VERONICA. Again reiterated that intermittent fasting is not ideal or sustainable and he would do better to follow the meal plan as prescribed by the [employer] seth. He is likely not getting enough protein as recommended by the seth if he is skipping 2 protein items each day. RTC Oct 17 11am (15min visit) at which point pt will hopefully be approved for Zepbound.
[2024-12-27 13:34] VITALS: BMI 38.1
--- OUTSIDE RECORDS SUMMARY | 2024-12-27 18:49 | XMS_ITS | Encounter Summary ---
Author Organization [employer] Address [address] [facility] 7t [place] [address] Care Team Providers Care Head Librarian Name Role Phone Christopher Boogie MD Primary Care Prov ider Encounter Details Date Type Department Care Team ([facility] st Contact Info) Description 08/20/2022 Orders Only [facility] CHC MED & PEDS [address] [place], [place] [phone] Christopher Boogie MD 505 [place], [place] [phone] Chronic midline low back pain with bilateral [...] documented as of this encounter Care Teams Head Librarian Relationship Specialty Start Date End Date GarciaChristopher Kurtz MD [address] [place] [phone] PCP - General Internal Medicine 09/07/19 documented as of this encounter
--- OUTSIDE RECORDS SUMMARY | 2024-12-27 18:49 | XMS_ITS | Clinical Summary ---
Author Organization [facility] Address [address] [facility] 20 0 [place] [address] Phone Care Team Providers Care Home Health Aide Name Role Phone Christopher Garcia Primary Care Provider + [phone] Allergies No known active allergies Medications GABAPENTIN [...] Payer ID:[id number] (NAIC) Type:Not on file Address: [address] [address] Medicaid [place] [facility] [place] [address] Medicaid [place] Care Teams Home Health Aide Relationship Specialty Start Date End Date Christopher Garcia PCP - General Internal Medicine 01/30/22
--- OUTSIDE RECORDS SUMMARY | 2024-12-27 18:49 | XMS_ITS | Encounter Summary ---
Author Organization [employer] Address [address] [facility] 7t [place] [address] Care Team Providers Care Storm Chaser Name Role Phone Christopher Boogie MD Primary Care Prov ider Encounter Details Date Type Department Care Team (Late st Contact Info) Description 12/05/2022 Orders Only [facility] CHC MED & PEDS 505 [place] [address] Christopher Boogie MD 505 [place] [address] Social History Tobacco Use Types Packs/Day Years [...] documented as of this encounter Care Teams Storm Chaser Relationship Specialty Start Date End Date Christopher Boogie MD [address] [place] [address] PCP - General Internal Medicine 09/07/19 documented as of this encounter
--- OUTSIDE RECORDS SUMMARY | 2024-12-27 18:49 | XMS_ITS | Clinical Summary ---
Author Organization [employer] Address 75 [facility] 7t [place] [address] Care Team Providers Care Hydrographic Engineer Name Role Phone Christopher Boogie MD Primary Care Prov ider Allergies No known active allergies Medications fluticasone (Flonase) 50 MCG/ACT nasal spray inhale 1 spray by intranasal route every day in each nostril as needed for allergies 11/29/19 20 Active traMADol (Ultram) 50 MG tablet take 1 Tablet by Oral route every 6 hours Active Blood Pressure Monitor [facility] [place] Check blood pressure on arm as directed 12/05/19 22 Active pantoprazole (ProtoNix) 40 MG EC tablet TAKE ONE TABLET DAILY 06/18/19 23 Active sucralfate (Carafate) 1 GM/10ML suspension TAKE 10 ml's BY MOUTH TWICE DAILY 06/18/19 23 Active clotrimazole (Lotrimin) 1 % cream apply by topical route 2 times every day to the affected and surrounding areas of skin in the morning and evening as needed for foot rash 60 g 1 04/21/19 24 Active Bisacodyl EC 5 MG EC tablet TAKE FOUR TABLETS BY MOUTH upon awakening followed by large GLASS of WATER ON DAY ONE FOR COLONOSCOPY prep 03/12/20 23 Active cyclobenzaprine (Flexeril) 5 MG tablet TAKE 1 TABLET BY MOUTH 3 TIMES A DAY NEEDED MUSCLE SPASM 08/19/19 23 Active diclofenac (Voltaren) 75 MG EC tablet Take 75 mg by mouth if needed in the morning and at bedtime. 05/28/19 24 Active Diclofenac Sodium 1 % gel APPLY 1 APPLICATION ON THE SKIN TWICE A DAY NEEDED APPLY 2 GRAMS 03/26/20 23 Active docusate sodium (Colace) 100 MG capsule TAKE TWO CAPSULES AT BEDTIME 03/12/20 23 Active polyethylene glycol, PEG, 3350 (Glycolax) 17 GM/SCOOP powder STIR 17GM INTO 8 OUNCES OF WATER, OR JUICE, AND DRINK DAILY NEEDED / DIRECTED 04/16/19 24 Active hydroCHLOROthiaz yeni (HYDRODiuril) 25 MG tabletIndication s:Primary hypertension Take 1 tablet (25 mg) by mouth in the morning. 90 tablet 3 05/24/19 25 Active azelastine (Astelin) 0.1 % nasal spray Administer 1 spray into each nostril 2 times daily. Use in each nostril as directed 30 mL 12 07/03/19 25 026 Active Tirzepatide-Weig ht Management (Zepbound) 2.5 MG/0.5ML solution auto-injector Inject 0.5 mL (2.5 mg) under the skin 1 (one) time per week. 3 mL 07/03/19 25 Active cetirizine (ZyrTEC) 10 MG tablet TAKE ONE TABLET DAILY 90 tablet 2 07/06/19 25 Active phentermine 15 MG capsule Take 1 capsule (15 mg) by mouth before breakfast. 30 capsule 07/27/19 25 Active losartan (Cozaar) 100 MG tablet TAKE ONE TABLET EVERY MORNING 90 tablet 3 08/05/19 25 Active Syringe/Needle, Disp, (B-D 3CC LUER-ALLYN SYR 22GX1 ) 22G X 1 3 ML misc USE WEEKLY FOR TESTOSTERONE ADMINISTRATION 14 each 09/18/19 25 Active testosterone cypionate (Depo-Testostero ne) 200 MG/ML injectionIndicat ions:Hypogonadis m in male INJECT 0.5 ML INTO THE MUSCLES EVERY 14 DAYS 2 mL 2 10/22/19 25 Active topiramate 50 MG tablet TAKE TWO TABLETS TWICE DAILY 60 tablet 1 11/06/19 25 Active metoprolol succinate XL (Toprol-XL) 100 MG 24 hr tablet TAKE ONE TABLET EVERY MORNING, DO NOT BREAK, CRUSH, DISSOLVE OR CHEW 90 tablet 3 11/24/19 25 Active Active Problems Problem Noted Date Diagnosed [...] recommended reduction of 20-30% of maintenance calories; nuclear medicine chief technologist referral offered. Recommended to decrease soda and [...] Type Department Care Team Description 11/20/2024 Refill C [facility] MED [facility] PEDS [address] [place] [address] Jeanette Bean MD 11/05/2024 Refill [facility] CHC MED & PEDS 505 [place] [address] Christopher Boogie MD 10/20/2024 Refill C [facility] MED & PEDS 505 [place] [address] Christopher Boogie MD Hypogonadism in male from Last 3 Months Immunizations Immunization Administration [...] 02/18/2023 02/18/2022, 10/22/2021, 09/27/2020, Additional history exists Depression Screening 04/21/2024 04/21/2023, 07/31/19 23 COVID-19 Vaccine ( season) 2024 Influenza Vaccine (#1) 2024 2, 04/16/2011, 04/16/2011 Diabetes: Hemoglobin A1C 01/02/2025 025, 04/29/2023, 02/04/2023, Additional history exists SDOH Screening 05/17/2025 05/17/2024 Tobacco Screening 05/17/2025 05/17/2024 Lipid Panel 06/03/2025 06/03/2024, 0405/2023, 02/04/2023, Additional history exists DTaP/Tdap/Td Vaccines (2 [...] 8:06 AM EST) HIV AB/AG Nonreactive Nonreactive [facility] Comment:HIV-1 p24 Ag and/or HIV-1/HIV-2 Ab not detected.A test result that is nonreactive does not exclude thepossibility of exposure to or infection with HIV-1 and/orHIV-2. Nonreactive results in this assay for individualswith prior exposure to HIV-1 and/or HIV-2 may be due toantigen and antibody levels that are below the limit ofdetection of this assay.The [employer] you [employer]? HIV Ag/Ab Combo assay result andsupplemental assay results should be interpreted inconjunction with the patient's clinical presentation,history and other laboratory results. If the results areinconsistent with clinical evidence, additional testing issuggested to confirm the result. Blood Venous blood specimen / Unknown 06/03/2024 8:06 AM EST 06/03/2024 2:06 PM EST us Christopher Krishnan MD LAB BLOOD ORDERABL ES Final Result [facility] [address] [place] [phone] * (ABNORMAL) Lipid Panel, Standard (06/03/2024 8:06 AM EST) Triglycerides 100 <150 mg/dL [facility] Comment:Desirable Triglyceri de: less than 150 mg/dLBorderline High Triglyceride 150-199 mg/dLHigh Triglyceride: 200-499 mg/dLVery High Triglyceride: greater than or equal to 5OO mg/dL Cholesterol 148 <200 mg/dL [facility] Comment:Desirable Cholestero l: less than 200 mg/dLBorderline High Cholesterol: 200-239 mg/dLHigh Cholesterol: greater than 239 mg/dL LDL Cholesterol Calculated 94 <100 mg/dL [facility] Comment:Desirable LDL: less than 100 mg/dLNear Optimal/Above Optimal LDL: 110- 129 mg/dLBorderline High LDL: 130-159 mg/dLHigh LDL: 160-189 mg/dLVery High LDL: greater than or equal to 190 mg/dL HDL Cholesterol 34(L) >40 mg/dL [facility] Comment:Desirable HDL: great er than 40 mg/dL Note: This HDL assay may give artificially low results in patients with liver disease. Blood Venous blood specimen / Unknown 06/03/2024 8:06 AM EST 06/03/2024 2:06 PM EST us Christopher Krishnan MD LAB BLOOD ORDERABL ES Final Result [facility] [address] [place] [phone] * Hepatitis C Antibody with Reflex to HCV, RNA, Quantitative, Real-Time PCR (04/29/2023 1:00 PM EST) Hepatitis C Antibody Nonreactive Nonreactive [facility] Comment:Antibodies to HCV no t detected; does not exclude early acuteHCV infection. Blood Venous blood specimen / Unknown 04/29/2023 1:00 PM EST 04/29/2023 2:42 PM EST us Christopher Krishnan MD LAB BLOOD ORDERABL ES Final Result [facility] [address] [place] [phone] * MICROALBUMIN/CREATININE RATIO, RANDOM URINE (02/18/2022 [...] ORDERABLE LABS Final Result Performing Organization Address City/[facility]/ZIP Co de Phone Number CONVERTED LEGACY LABS from Last 3 Months or Most Recently Relevant to Health Maintenance Insurance [facility] MEDICARE ADVANTAGE Care Teams Hydrographic Engineer Relationship Specialty Start Date End Date Christopher Boogie MD [address] [place] [phone] PCP - General Internal Medicine 09/07/19
== END 2024-12-27 13:51 | disposition home or self-care (01) ==
LOC: HO.HBS 13:35
PROVIDERS: PCP Internal Medicine; Visit Provider Physician Assistant Surgical
DX: E66.9 Obesity, unspecified (principal); Z98.84 Bariatric surgery status
CPT/HCPCS: 99214; G2211

== ENCOUNTER 2024-12-28 08:48 | Outpatient (AMB) | payer MEDICARE, MEDICAID, SELFPAY ==
--- NOTE | 2024-12-28 08:57 | MHC.OFFVIS ---
Vital Signs 12/28/24 09:01 Height 5 ft 6 in Weight 240 lb BMI 38.7 BP 158/83 H Blood Pressure Location Lt brachial Position Sitting Pulse 65 Pulse Oximetry (%) 98 Oxygen Delivery Method Room Air Intake Visit Reasons: Colonoscopy Screening Intake Note: Patient complex follow up for 2nd pre Colonoscopy screening. Jazlyn dempsey ashly was 03/12/2023. Dr. Mcallister did the first one 11 yrs ago. Patient denies any GI issues. Supervisor [employer] Mottle Required: No Accompanied by: Self / Same As Patient Allergies No Known Allergies Allergy (Verified 11/08/24 13:37) Medication List - Last Reconciled 12/28/24 by Korina Buitrago CNP blood pressure test kit-large As directed hydrochlorothiazide 25 mg PO DAILY losartan 100 mg PO DAILY meloxicam 15 mg PO DAILY metoprolol succinate ER 100 mg PO DAILY Held on 07/03/22. Instructions: Resume on 07/04/22. Check your blood pressure every evening and send it to Dr. Alvarado. Do not take the medication before you hear from Dr. Alvarado. Do not take the medication if your blood pressure is below 120/70 mmHg. wnmimolodwcd-rzu-zcrw-FA-vit K 45 mg iron- 800 mcg-120 mcg (Bariatric Multivitamins) caps PO syringe with needle As directed weekly for testosterone administration syringe with needle As directed testosterone cypionate 80 mg IM QWEEK Held on 07/03/22. Instructions: Resume on 08/01/22. tirzepatide (weight loss) (Zepbound) 2.5 mg (0.5 mL) subcut QWEEK tramadol 50 mg PO Q8H PRN HPI HPI Colonoscopy Screening: Details: Patient is a 64-year-old male with PMH of obesity, hypertension, hyperlipidemia, diabetes, sleep apnea with CPAP. Last visit with CASSY Cramer 03/12/2023 for pre colonoscopy screening He reports the colonoscopy scheduled for 2022 was cancelled due to Covid19 illness. Demetris reports daily bowel movements, occasionally every other day, without constipation, diarrhea, or hematochezia. He denies abdominal pain, nausea, heartburn, dysphagia, or change in appetite. No recent febrile illness. Weight is in the 240?b range; he previously underwent sleeve gastrectomy (preop weight 310lb,postop 215lb) and is currently experiencing modest weight regain. Shares prescription for zepbound is pending. No new GI symptoms since his prior colonoscopy in 2014 (normal, noted internal hemorrhoids). Social hx: -rare ETOH use, occasionally 1-2 glasses of wine -denies recreational drug use -non-smoker - family hx as below -denies personal hx of CA -tolerated anesthesia in the past without difficulty. PFSH Medical History DJD (degenerative joint disease) Sleep apnea with use of continuous positive airway pressure (CPAP) Morbid obesity Obesity Goiter Hypogonadism male Vitamin D deficiency HLD (hyperlipidemia) HTN (hypertension) T2DM (type 2 diabetes mellitus) Surgical History History of sleeve gastrectomy H/O arthroscopy of left knee Hx of appendectomy Family History (Updated 12/28/24 @ 09:16 by Korina Buitrago CNP) Father Coronary artery disease Hypertension Mother Coronary artery disease Hypertension Stroke Brother Cancer Social History Household Members: Family Housing: House Are you a primary childcare center director to a significant other at home: No Do you presently have visiting nurse or other home services: No Alcohol intake: current Alcohol intake frequency: holidays/special occasions only Alcohol type: wine Patient Tobacco Use Status: Never used Tobacco Advance Directives Date on File: 07/04/22 service: No Review of Systems Const Reports as per HPI ENT Reports as per HPI Card Reports as per HPI Resp Reports as per HPI GI Reports as per HPI Reports as per HPI Physical Exam Vital Signs: Last Vital Signs Pulse 65 12/28/24 09:01 BP 158/83 H 12/28/24 09:01 Pulse Ox 98 12/28/24 09:01 Oxygen Delivery Method Room Air 12/28/24 09:01 BMI result Body Mass Index 38.7 Const General: healthy appearing, no acute distress and well developed Nutritional Appearance: obese Orientation/consciousness: patient oriented x3 HEENT Head: Yes normal to inspection, Yes normocephalic and Yes atraumatic Face and sinus: Yes normal facial exam Eyes General: appearance normal, both eyes and all related structures Neck Neck: Yes normal visual inspection Resp Effort & Inspection: normal respiratory effort, able to speak in complete sentences, no tracheal deviation and symmetric chest movement Neuro General: patient oriented x3 Gait exam (Neuro): Normal gait present Psych Appearance: grossly normal Mental Status: mental status grossly normal Speech and movement: Normal speech and movement present Affect: normal affect Attitude: cooperative Thought process: Normal thought process present Thought content: Normal thought content present Insight: Good insight present (Psych) Judgement: Good judgement present (Psych) Assessment & Plan Assessment & Plan (1) Encounter for screening colonoscopy: Comment: 09/28/2013 colonoscopy (Esvin) complete with adequate prep-large external hemorrhoids. Code(s): Z12.11 - Encounter for screening for malignant neoplasm of colon Category: Medical Plan: Due for routine screening. No alarm features. Medications: -prescriptions for laxative tablets and MiraLax sent to pharmacy; instructions for Gatorade purchase and clear liquid diet given. - understands wieght loss medications and meloxicam will need to be held days prior to procedure. Nurse to review med holds per protocol. Patient educated on scheduling process, procedure preparation, including avoiding certain foods and ensuring clear liquid intake Advised on necessity for ride post-procedure due to sedation. Plan Follow-up after colonoscopy as warranted or sooner if needed Time: I spent a total of 30 minutes on the date of encounter which includes: Preparing to see the patient (reviewed previous documentation, test results and medical history) Performing a medically appropriate exam and/or evaluation Ordering medications, tests, and procedures Documenting clinical information in the health record Orders: Referrals GI Procedure Notification Z12.11 - Encounter for screening for malignant neoplasm of colon Medications: New bisacodyl Take per colonoscopy instructions 5 mg PO ONCE 4 tabs 0RF polyethylene glycol 3350 (Miralax) per colonoscopy prep instructions 238 grams PO ONCE 238 grams 0RF Coding Level of Care Code Established Pt New Pt Level 3 (34011) Patient Type Established Diagnoses Encounter for screening colonoscopy Z12.11
[2024-12-28 09:01] VITALS: BP 158/83; PULSE 65; O2SAT 98; BMI 38.7
--- OUTSIDE RECORDS SUMMARY | 2024-12-28 10:47 | XMS_ITS | Encounter Summary ---
Author Organization [employer] Address 75 [facility] 7t [place] [address] Care Team Providers Care Pump Erector Name Role Phone Christopher Boogie MD Primary Care Prov ider Encounter Details Date Type Department Care Team ([facility] st Contact Info) Description 08/20/2022 Orders Only [facility] CHC MED & PEDS [address] [place], [place] [phone] Christopher Boogie MD 505 [place], [place] [phone] Chronic midline low back pain with bilateral [...] documented as of this encounter Care Teams Pump Erector Relationship Specialty Start Date End Date GarciaChristopher Kurtz MD [address] [place] [id number] PCP - General Internal Medicine 09/07/19 documented as of this encounter
--- OUTSIDE RECORDS SUMMARY | 2024-12-28 10:47 | XMS_ITS | Encounter Summary ---
Author Organization [employer] Address 75 [facility] 7t [place] [address] Care Team Providers Care Information And Data Architect Analyst Name Role Phone Chirstopher Boogie MD Primary Care Prov ider Encounter Details Date Type Department Care Team (Late st Contact Info) Description 12/05/2022 Orders Only [facility] CHC MED & PEDS [address] [place] [address] Christopher Boogie MD [address] [place] [address] Social History Tobacco Use Types Packs/Day Years [...] documented as of this encounter Care Teams Information And Data Architect Analyst Relationship Specialty Start Date End Date Christopher Boogie MD [address] [place] [address] PCP - General Internal Medicine 09/07/19 documented as of this encounter
--- OUTSIDE RECORDS SUMMARY | 2024-12-28 10:47 | XMS_ITS | Clinical Summary ---
Author Organization [facility] Address [address] [facility] [address] 0 [place] [address] Phone Care Team Providers Care Mink Rancher Name Role Phone Christopher Garcia Primary Care Provider + [phone] Allergies No known active allergies Medications GABAPENTIN [...] Payer ID:[id number] (NAIC) Type:Not on file Address: [address] [phone] [place] [facility] Medicare Medicaid [place] Care Teams Mink Rancher Relationship Specialty Start Date End Date Christopher Garcia PCP - General Internal Medicine 01/30/22
--- OUTSIDE RECORDS SUMMARY | 2024-12-28 10:47 | XMS_ITS | Clinical Summary ---
Author Organization [employer] Address 75 [facility] 7t [place] [address] Care Team Providers Care Sports Media Name Role Phone Christopher Boogie MD Primary Care Prov ider Allergies No known active allergies Medications fluticasone (Flonase) 50 MCG/ACT nasal spray inhale 1 spray by intranasal route every day in each nostril as needed for allergies 11/29/19 20 Active traMADol (Ultram) 50 MG tablet take 1 Tablet by Oral route every 6 hours Active Blood Pressure Monitor [facility] Check blood pressure on arm as directed [...] recommended reduction of 20-30% of maintenance calories; technical instructor referral offered. Recommended to decrease soda and [...] C [facility]S [address] [place] [address] Jeanette Bean MD 11/05/2024 Refill [facility] MED & PEDS [address] [place] [address] Christopher Boogie MD 10/20/2024 Refill C [facility] MED & PEDS [address] [place] [address] Christopher Boogie MD Hypogonadism in male from [...] 8:06 AM EST) HIV AB/AG Nonreactive Nonreactive [facility] Comment:HIV-1 p24 Ag and/or HIV-1/HIV-2 Ab not detected.A test result that is nonreactive does not exclude thepossibility of exposure to or infection with HIV-1 and/orHIV-2. Nonreactive results in this assay for individualswith prior exposure to HIV-1 and/or HIV-2 may be due toantigen and antibody levels that are below the limit ofdetection of this assay.The [employer] HIV Ag/Ab Combo assay result andsupplemental assay results should be interpreted inconjunction with the patient's clinical presentation,history and other laboratory results. If the results areinconsistent with clinical evidence, additional testing issuggested to confirm the result. Blood Venous blood specimen / Unknown 06/03/2024 8:06 AM EST 06/03/2024 2:06 PM EST us Christopher Krishnan MD LAB BLOOD ORDERABL ES Final Result [facility] [address] [place] [phone] * (ABNORMAL) Lipid Panel, Standard (06/03/2024 8:06 AM EST) Triglycerides 100 <150 mg/dL [facility] Comment:Desirable Triglyceri de: less than 150 mg/dLBorderline High Triglyceride 150-199 mg/dLHigh Triglyceride: 200-499 mg/dLVery High Triglyceride: greater than or equal to 5OO mg/dL Cholesterol 148 <200 mg/dL [facility] Comment:Desirable Cholestero l: less than 200 mg/dLBorderline High Cholesterol: 200-239 mg/dLHigh Cholesterol: greater than 239 mg/dL LDL Cholesterol Calculated 94 <100 mg/dL [facility] Comment:Desirable LDL: less than 100 mg/dLNear Optimal/Above Optimal LDL: 110- 129 mg/dLBorderline High LDL: 130-159 mg/dLHigh LDL: 160-189 mg/dLVery High LDL: greater than or equal to 190 mg/dL HDL Cholesterol 34(L) >40 mg/dL [facility] Comment:Desirable HDL: great er than 40 mg/dL Note: This HDL assay may give artificially low results in patients with liver disease. Blood Venous blood specimen / Unknown 06/03/2024 8:06 AM EST 06/03/2024 2:06 PM EST us Christopher Krishnan MD LAB BLOOD ORDERABL ES Final Result [facility] [address] [place] [phone] * Hepatitis C Antibody with Reflex to HCV, RNA, Quantitative, Real-Time PCR (04/29/2023 1:00 PM EST) Hepatitis C Antibody Nonreactive Nonreactive [facility] Comment:Antibodies to HCV no t detected; does not exclude early acuteHCV infection. Blood Venous blood specimen / Unknown 04/29/2023 1:00 PM EST 04/29/2023 2:42 PM EST us Christopher Krishnan MD LAB BLOOD ORDERABL ES Final Result [facility] [address] [place] [phone] [phone] * MICROALBUMIN/CREATININE RATIO, RANDOM URINE (02/18/2022 [...] ORDERABLE LABS Final Result Performing Organization Address City/[facility]/ZIP Co de Phone Number CONVERTED LEGACY LABS from Last 3 Months or Most Recently Relevant to Health Maintenance Insurance [facility] MEDICARE ADVANTAGE Care Teams Sports Media Relationship Specialty Start Date End Date Christopher Boogie MD [address] [place] [phone] PCP - General Internal Medicine 09/07/19
== END 2024-12-28 10:07 | disposition home or self-care (01) ==
LOC: HO.HGI 08:49
PROVIDERS: PCP Internal Medicine; Visit Provider Nurse Practitioner Family
DX: Z01.818 Encounter for other preprocedural examination (principal); Z12.11 Encounter for screening for malignant neoplasm of colon
CPT/HCPCS: 99024

== ENCOUNTER → 2024-12-28 08:48 | Outpatient (BNVA) | payer MEDICARE, MEDICAID, SELFPAY | PROVIDERS: PCP Internal Medicine; Visit Provider Nurse Practitioner Family | DX: Z01.818 Encounter for other preprocedural examination (principal) | CPT/HCPCS: 99212 ==

== ENCOUNTER 2025-01-25 08:25 | Day surgery (SDC) | payer MEDICARE, MEDICAID, SELFPAY ==
--- OUTSIDE RECORDS SUMMARY | 2024-12-30 15:19 | XMS_ITS | Encounter Summary ---
Author Organization [employer] Address [address] [facility] 7t [place] [address] Care Team Providers Care Sales Associate Name Role Phone Christopher Boogie MD Primary Care Prov ider Encounter Details Date Type Department Care Team ([facility] st Contact Info) Description 08/20/2022 Orders Only [facility] CHC MED & PEDS [address] [place], [place] [phone] Christopher Boogie MD [address] [place], [place] [phone] Chronic midline low back pain with bilateral [...] documented as of this encounter Care Teams Sales Associate Relationship Specialty Start Date End Date GarciaChristopher Kurtz MD [address] [place] [phone] PCP - General Internal Medicine 09/07/19 documented as of this encounter
--- OUTSIDE RECORDS SUMMARY | 2024-12-30 15:19 | XMS_ITS | Clinical Summary ---
Author Organization [employer] Address [address] [facility] 7[address] [place] [address] Care Team Providers Care Public Health Teacher Name Role Phone Christopher Boogie MD Primary Care Prov ider Allergies No known active allergies Medications fluticasone (Flonase) 50 MCG/ACT nasal spray inhale 1 spray by intranasal route every day in each nostril as needed for allergies 11/29/19 20 Active traMADol (Ultram) 50 MG tablet take 1 Tablet by Oral route every 6 hours Active Blood Pressure Monitor [facility] [place] Check blood pressure on arm as directed [...] recommended reduction of 20-30% of maintenance calories; promotion producer referral offered. Recommended to decrease soda and [...] [facility] [address] [place] [address] Jeanette Bean MD 11/05/2024 Refill [facility] [address] [place] [address] Christopher Boogie MD 10/20/2024 Refill [facility] [address] [place] [address] Christopher Boogie MD Hypogonadism in male from [...] 8:06 AM EST) HIV AB/AG Nonreactive Nonreactive [facility] Comment:HIV-1 p24 Ag and/or HIV-1/HIV-2 Ab not detected.A test result that is nonreactive does not exclude thepossibility of exposure to or infection with HIV-1 and/orHIV-2. Nonreactive results in this assay for individualswith prior exposure to HIV-1 and/or HIV-2 may be due toantigen and antibody levels that are below the limit ofdetection of this assay.The [employer] Connect HIV Ag/Ab Combo assay result andsupplemental assay results should be interpreted inconjunction with the patient's clinical presentation,history and other laboratory results. If the results areinconsistent with clinical evidence, additional testing issuggested to confirm the result. Blood Venous blood specimen / Unknown 06/03/2024 8:06 AM EST 06/03/2024 2:06 PM EST us Christopher Krishnan MD LAB BLOOD ORDERABL ES Final Result [facility] [address] [place] [phone] * (ABNORMAL) Lipid Panel, Standard (06/03/2024 8:06 AM EST) Triglycerides 100 <150 mg/dL [facility] Comment:Desirable Triglyceri de: less than 150 mg/dLBorderline High Triglyceride 150-199 mg/dLHigh Triglyceride: 200-499 mg/dLVery High Triglyceride: greater than or equal to 5OO mg/dL Cholesterol 148 <200 mg/dL [facility] Comment:Desirable Cholestero l: less than 200 mg/dLBorderline High Cholesterol: 200-239 mg/dLHigh Cholesterol: greater than 239 mg/dL LDL Cholesterol Calculated 94 <100 mg/dL [facility] Comment:Desirable LDL: less than 100 mg/dLNear Optimal/Above Optimal LDL: 110- 129 mg/dLBorderline High LDL: 130-159 mg/dLHigh LDL: 160-189 mg/dLVery High LDL: greater than or equal to 190 mg/dL HDL Cholesterol 34(L) >40 mg/dL [facility] Comment:Desirable HDL: great er than 40 mg/dL Note: This HDL assay may give artificially low results in patients with liver disease. Blood Venous blood specimen / Unknown 06/03/2024 8:06 AM EST 06/03/2024 2:06 PM EST us Christopher Krishnan MD LAB BLOOD ORDERABL ES Final Result [facility] [address] [place] [phone] * Hepatitis C Antibody with Reflex to HCV, RNA, Quantitative, Real-Time PCR (04/29/2023 1:00 PM EST) Hepatitis C Antibody Nonreactive Nonreactive [facility] Comment:Antibodies to HCV no t detected; does not exclude early acuteHCV infection. Blood Venous blood specimen / Unknown 04/29/2023 1:00 PM EST 04/29/2023 2:42 PM EST us Christopher Krishnan MD LAB BLOOD ORDERABL ES Final Result [facility] [address] [place] [phone] * MICROALBUMIN/CREATININE RATIO, RANDOM URINE (02/18/2022 [...] ORDERABLE LABS Final Result Performing Organization Address City/[facility]/ZIP Co de Phone Number [facility]VERT[facility] from Last 3 Months or Most Recently Relevant to Health Maintenance Insurance [facility] MEDICARE ADVANTAGE Care Teams Public Health Teacher Relationship Specialty Start Date End Date Christopher Boogie MD [address] [place] [phone] PCP - General Internal Medicine 09/07/19
--- OUTSIDE RECORDS SUMMARY | 2024-12-30 15:19 | XMS_ITS | Encounter Summary ---
Author Organization [employer] Address [address] [facility] [address] [place] [address] Care Team Providers Care Hand Printed Circuit Board Assembler Name Role Phone Christopher Boogie MD Primary Care Prov ider Encounter Details Date Type Department Care Team (Late st Contact Info) Description 12/05/2022 Orders Only [facility] [address] [place] [address] Christopher Boogie MD [address] [place] [address] Social History Tobacco Use Types Packs/Day Years [...] documented as of this encounter Care Teams Hand Printed Circuit Board Assembler Relationship Specialty Start Date End Date Christopher Boogie MD [address] [place] [address] PCP - General Internal Medicine 09/07/19 documented as of this encounter
--- OUTSIDE RECORDS SUMMARY | 2024-12-30 15:19 | XMS_ITS | Clinical Summary ---
Author Organization [facility] Address [address] [facility] [address] [place] [address] Phone Care Team Providers Care Java Sybase Developer Name Role Phone Christopher Garcia Primary Care Provider + [phone] Allergies No known active allergies Medications GABAPENTIN [...] Payer ID:[id number] (NAIC) Type:Not on file Address: [address] [id number] [place] [facility] Medicare Medicaid [place] Care Teams Java Sybase Developer Relationship Specialty Start Date End Date Christopher Garcia PCP - General Internal Medicine 01/30/22
--- NOTE | 2025-01-21 09:43 | HO.ANESPROP2 ---
Documented by User: Lety Mosquera NP 01/21/25 09:44 HPI - Anesthesia Eval Consult details Narrative: 64yo M for Colonoscopy Anesthesia Pre-Procedure Meds Is the patient on any of the following meds?: GLP1/DPP4 PMFSH Active Problems Active Problems: All Active Problems Hemorrhoids (Acute) Diverticulosis of colon (Acute) Encounter for screening colonoscopy (Acute) Hepatomegaly (Acute) S/P laparoscopic sleeve gastrectomy (Acute) Aortic dilatation (Acute) Liver fibrosis (Acute) Steatosis, liver (Acute) Inferior myocardial infarction (Acute) Vitamin B12 deficiency (Acute) Binge-eating disorder, in partial remission, mild (Acute) DJD (degenerative joint disease) (Acute) Sleep apnea with use of continuous positive airway pressure (CPAP) (Acute) Morbid obesity (Acute) Obesity (Acute) Goiter (Acute) Hypogonadism male (Acute) Vitamin D deficiency (Acute) HLD (hyperlipidemia) (Acute) HTN (hypertension) (Acute) T2DM (type 2 diabetes mellitus) (Acute) Past Medical History Medical History DJD (degenerative joint disease) Sleep apnea with use of continuous positive airway pressure (CPAP) Morbid obesity Obesity Goiter Hypogonadism male Vitamin D deficiency HLD (hyperlipidemia) HTN (hypertension) T2DM (type 2 diabetes mellitus) Family History Family History Father Coronary artery disease Hypertension Mother Coronary artery disease Hypertension Stroke Brother Cancer Family history of problems with anesthesia: No Surgical History Surgical History History of sleeve gastrectomy H/O arthroscopy of left knee Hx of appendectomy History of Problems with Anesthesia: No Social History Social History Household Members: Family Housing: House Are you a primary animal care attendant to a significant other at home: No Do you presently have visiting nurse or other home services: No Alcohol intake: current Alcohol intake frequency: holidays/special occasions only Alcohol type: wine Patient Tobacco Use Status: Never used Tobacco Have you been hit, kicked, punched, or otherwise hurt by someone within the past year? If so, by whom?: No Are you DNR?: No Advance Directives: No Advance Directives Information Provided: Yes Advance Directives Date on File: 07/04/22 Poor oral hygiene: No service: No Meds Allergies Allergy/AdvReac Type Severity Reaction Status Date / Time No Known Allergies Allergy Verified 01/25/25 09:05 Home Medications ?Medication ?Instructions ?Recorded ?Confirmed ?Last Taken ?Type blood pressure test kit-large #1 09/27/20 01/25/25 Unknown History metoprolol succinate 100 mg 100 mg PO DAILY 09/27/20 01/25/25 07/02/22 04:30 History tablet,extended release 24 hr Held on 07/03/22. Instructions: Resume on 07/04/22. Check your blood pressure every evening and send it to Dr. Alvarado. Do not take the medication before you hear from Dr. Alvarado. Do not take the medication if your blood pressure is below 120/70 mmHg. syringe with needle 3 mL 22 gauge #1 09/27/20 01/25/25 Unknown History x 1 syringe with needle 3 mL 25 gauge #1 09/27/20 01/25/25 Unknown History x 1 testosterone cypionate 200 mg/mL 80 mg IM QWEEK 09/27/20 01/25/25 06/18/22 History intramuscular oil Held on 07/03/22. Instructions: Resume on 08/01/22. tramadol 50 mg tablet 50 mg PO Q8H PRN Pain 09/27/20 01/25/25 07/01/22 History hydrochlorothiazide 12.5 mg capsule 25 mg PO DAILY 07/25/22 01/25/25 Unknown History losartan 100 mg tablet 100 mg PO DAILY 09/03/24 01/25/25 Unknown History ckafoqwh-lkmhoetn-cxch 45 mg-folic cap PO 09/03/24 12/29/24 Unknown History acid 800 mcg-vit K 120 mcg capsule (Bariatric Multivitamins) meloxicam 15 mg tablet 15 mg PO DAILY 12/28/24 01/25/25 01/23/25 History Assessment and Plan Assessment Anesthesia Assessment: Chart Reviewed Final Anesthetic Review Family History of Problems with Anesthesia: No History of Problems with Anesthesia: No Documented by User: Alec Naylor MD 01/25/25 10:28 [facility] Past Medical History Medical History DJD (degenerative joint disease) Sleep apnea with use of continuous positive airway pressure (CPAP) Morbid obesity Obesity Goiter Hypogonadism male Vitamin D deficiency HLD (hyperlipidemia) HTN (hypertension) T2DM (type 2 diabetes mellitus) Functional capacity: independent ambulation Family History Family History Father Coronary artery disease Hypertension Mother Coronary artery disease Hypertension Stroke Brother Cancer Surgical History Surgical History History of sleeve gastrectomy H/O arthroscopy of left knee Hx of appendectomy Social History Social History Household Members: Family Housing: House Are you a primary animal care attendant to a significant other at home: No Do you presently have visiting nurse or other home services: No Alcohol intake: current Alcohol intake frequency: holidays/special occasions only Alcohol type: wine Patient Tobacco Use Status: Never used Tobacco Have you been hit, kicked, punched, or otherwise hurt by someone within the past year? If so, by whom?: No Are you DNR?: No Advance Directives: No Advance Directives Information Provided: Yes Advance Directives Date on File: 07/04/22 Poor oral hygiene: No service: No Travel History History of recent travel: No Recent Travel in [facility] Within the Last 8 Weeks: No Recent Out of Country Travel Within the Last 8 Weeks: No Exposure or Possible Exposure to Illness During Travel: No History of Being in a Healthcare Facility as a Patient, Worker, or Visitor during Travel: No Medical Treatment Received for Symptoms/Illness Related to Travel: No Meds Allergies Allergy/AdvReac Type Severity Reaction Status Date / Time No Known Allergies Allergy Verified 01/25/25 09:05 Home Medications ?Medication ?Instructions ?Recorded ?Confirmed ?Last Taken ?Type blood pressure test kit-large #1 ea 09/27/20 01/25/25 Unknown History metoprolol succinate 100 mg 100 mg PO DAILY 09/27/20 01/25/25 07/02/22 04:30 History tablet,extended release 24 hr Held on 07/03/22. Instructions: Resume on 07/04/22. Check your blood pressure every evening and send it to Dr. Alvarado. Do not take the medication before you hear from Dr. Alvarado. Do not take the medication if your blood pressure is below 120/70 mmHg. syringe with needle 3 mL 22 gauge #1 09/27/20 01/25/25 Unknown History x 1 syringe with needle 3 mL 25 gauge #1 09/27/20 01/25/25 Unknown History x 1 testosterone cypionate 200 mg/mL 80 mg IM QWEEK 09/27/20 01/25/25 06/18/22 History intramuscular oil Held on 07/03/22. Instructions: Resume on 08/01/22. tramadol 50 mg tablet 50 mg PO Q8H PRN Pain 09/27/20 01/25/25 07/01/22 History hydrochlorothiazide 12.5 mg capsule 25 mg PO DAILY 07/25/22 01/25/25 Unknown History losartan 100 mg tablet 100 mg PO DAILY 09/03/24 01/25/25 Unknown History yrknuqva-grdsxpry-pznj 45 mg-folic cap PO 09/03/24 12/29/24 Unknown History acid 800 mcg-vit K 120 mcg capsule (Bariatric Multivitamins) meloxicam 15 mg tablet 15 mg PO DAILY 12/28/24 01/25/25 01/23/25 History Exam Exam Date and Time: 01/25/2025 Airway Mallampati Class: II TM Dist: >3cm Neck ROM: Full Loose/Missing/Broken Teeth: No Heart: normal Lungs: normal Other: normal Assessment and Plan Final Anesthetic Review NPO: Yes ASA Class: II and III Final Preanesthetic Review: No Changes in Pt Med Stat, Meds/Allgs Chart Reviewed, Consent Obtained/Reviewed and Anes Risks/Benef Reviewed Patient Risk: Intermediate Procedure Risk: Low Anesthetic Plan Anesthetic Plan: MAC: Disposition: Standard PACU
[2025-01-25 09:04] VITALS: BMI 38.1
[2025-01-25] MEDS: Lactated Ringers 1,000 ML 100 ML IVCONT (09:16)
--- NOTE | 2025-01-25 09:17 | PC.NURSE ---
patient states taking zepbound for weight loss. no longer takes diabetic medications after gastric sleeve years ago. no poc required.
[2025-01-25 09:21] VITALS: BP 159/86; PULSE 70; RESP 18; TEMP 36.7; O2SAT 99
--- NOTE | 2025-01-25 09:51 | MHC.SHP ---
Pre-Procedural Eval Section A - 24 Hr Update-Section A only Date of Service: 01/25/25 Section B - Complete if H&P > 30 days Chief Complaint: screening Relevant Family History (Specify if Yes): No Relevant Social History: None Present Medications: see Short Stay Collaborative assessment Medical History: Significant History (DJD (degenerative joint disease) Sleep apnea with use of continuous positive airway pressure (CPAP) Morbid obesity Obesity Goiter Hypogonadism male Vitamin D deficiency HLD (hyperlipidemia) HTN (hypertension) T2DM (type 2 diabetes mellitus)) History of Previous Operations: Relevant previous surgery/procedure and date(s) ( History of sleeve gastrectomy H/O arthroscopy of left knee Hx of appendectomy) Allergies: Allergies Allergy/AdvReac Type Severity Reaction Status Date / Time No Known Allergies Allergy Verified 01/25/25 09:05 Review of Systems Sugical H&P ROS: Negative: Constitution, Cardiovascular, Respiratory, Neurological, Psychiatric, Hem-Onc, Allergic/Immunologic, Gastrointestinal, Genitourinary, Musculoskeletal, Integumentary, Endocrine and Eyes/Ears/Nose/Throat Exam Surgical H&P Exam: Normal: HEENT, Normal: Heart, Normal: Lungs, Normal: Extremities, Normal: Abdomen, Normal: Skin and Normal: Neurological Plan Diagnosis/Plan: Unchanged I have reviewed the history and physical and performed a pertinent physical examination on my patient. No changes have occurred unless specified. Time Spent With Patient Time: Total time managing care of this patient today ____ minutes.
--- NOTE | 2025-01-25 10:43 | P.OPN-COLO_ITS ---
Colonoscopy Operative Note Operative Note Date of Service: 01/25/25 Narrative: Operative Information Procedure Description: Colonoscopy Indication: screening Anesthesia: MAC COLONOSCOPY Instrument: Olympus variable stiffness adult scope 190L Colonoscopy Monitoring: Vital signs and clinical assessment, continuous EKG monitoring, Pulse oximetry, Carbon Dioxide monitoring and blood pressure monitoring were done throughout the procedure. Colon withdrawal time was 24 minutes. Procedure: The patient was placed in the left lateral decubitis position and pre-procedure medications were administered. After a digital rectal examination of the ano-rectum, the video colonoscope was inserted into the rectum and advanced through the colon to the cecum/TI. The colonoscope was slowly withdrawn in a retrograde panoramic fashion and the colon mucosa was carefully examined including a retroflexed view of the rectum. Findings and interventions are described below. Procedure Difficulty: moderate Findings: Terminal Ileum-normal Cecum:normal right sided retroflexion- normal Ascending Colon: 3-4 mm sessile polyp removed with cold forceps, mild diverticulosis Transverse Colon -normal Descending Colon:normal Sigmoid Colon: mdoerate diverticulosis Rectum: Retroflexion with small internal hemorrhoids seen, grade I Anorectum - normal Intervention: cold forceps Colon preparation: [place] Bowel Preparation Scale Right colon; 2 Transverse colon: 2 Left colon; 1-2 (0 = Unprepared colon segment with mucosa not seen due to solid stool that cannot be cleared. 1 = Portion of mucosa of the colon segment seen, but other areas of the colon segment not well seen due to staining, residual stool and/or opaque liquid. 2 = Minor amount of residual staining, small fragments of stool and/or opaque liquid, but mucosa of colon segment seen well. 3 = Entire mucosa of colon segment seen well with no residual staining, small fragments of stool or opaque liquid) Impression and Post Procedure Diagnosis: diverticulosis colon polyp x 1 internal hemorrhoids Plan: High fiber diet leaflet Avoid straining at stool, epsom salts and sitz bath, anusol supps or cream Repeat Colonoscopy in 5 years due to fair prep on left and polyp or earlier if clinically indicated Above findings were reviewed with the patient and relevant handouts were provided if indicated.
[2025-01-25 10:46] VITALS: BP 110/70; PULSE 80; RESP 20; TEMP 37.2; O2SAT 97
[2025-01-25 11:01] VITALS: BP 129/75; PULSE 80; RESP 20; TEMP 36.9; O2SAT 97
== END 2025-01-25 11:36 | disposition home or self-care (01) ==
PROVIDERS: PCP Internal Medicine; Visit Provider Internal Medicine Gastroenterology
PROC: 0DJD8ZZ Inspection of Lower Intestinal Tract, Via Natural or Artificial Opening Endoscopic (ICD-10-PCS; CPT 45378; principal; 2025-01-25 10:30)
DX: Z12.11 Encounter for screening for malignant neoplasm of colon (principal); K64.0 First degree hemorrhoids; D12.2 Benign neoplasm of ascending colon
CPT/HCPCS: 45380; 88305; J2003; J2704; J3010

== ENCOUNTER → 2025-01-25 08:25 | Outpatient (BNV) | payer MEDICARE, MEDICAID, SELFPAY | PROVIDERS: PCP Internal Medicine; Visit Provider Internal Medicine Gastroenterology | DX: Z12.11 Encounter for screening for malignant neoplasm of colon (principal); D12.2 Benign neoplasm of ascending colon; K57.90 Diverticulosis of intestine, part unspecified, without perforation or abscess without bleeding; K64.0 First degree hemorrhoids | CPT/HCPCS: 45380 ==

== ENCOUNTER 2025-01-28 11:01 | Outpatient (AMB) | payer MEDICARE, MEDICAID, SELFPAY ==
--- NOTE | 2025-01-28 11:07 | A.OFFVIS_ITS ---
VS Expanded 01/28/25 11:11 Height 5 ft 6 in Weight 232 lb BMI 37.4 Intake Visit Reasons: PHONE- PO LSG 07/02/22 Allergies No Known Allergies Allergy (Verified 01/25/25 09:05) Medication List - Last Reconciled 01/28/25 by CASSY Bolton blood pressure test kit-large As directed hydrochlorothiazide 25 mg PO DAILY losartan 100 mg PO DAILY meloxicam 15 mg PO DAILY metoprolol succinate ER 100 mg PO DAILY Held on 07/03/22. Instructions: Resume on 07/04/22. Check your blood pressure every evening and send it to Dr. Alvarado. Do not take the medication before you hear from Dr. Alvarado. Do not take the medication if your blood pressure is below 120/70 mmHg. whejzgedrros-hbw-ieej-FA-vit K 45 mg iron- 800 mcg-120 mcg (Bariatric Multivitamins) caps PO syringe with needle As directed weekly for testosterone administration syringe with needle As directed testosterone cypionate 80 mg IM QWEEK Held on 07/03/22. Instructions: Resume on 08/01/22. tirzepatide (weight loss) (Zepbound) 5 mg (0.5 mL) subcut QWEEK tramadol 50 mg PO Q8H PRN HPI Comments Details: This?is a?64?yo M who is s/p LSG 07/02/2022. He had not been seen in approximately a year, reestablishing in August 2024. Had been able to get weight down to 215lbs previously. He had been given information regarding [employer] seth. He does have the seth but has not been using strictly. He was scheduled for sleep study 12/12/24 and had confirmed ongoing VERONICA with over 20 episodes of apnea- qualified as severe. Not following meal plan over last 10 days with fasting 16 hours Now taking Zepbound, was approved by insurance. Tolerating well, took one dose so far at 5mg. home at 2 pm then has a bar or shake entire bottle mixed with 8 oz black coffee meal at 6-7 pm 8 forks and 8 forks another bar or shake at 9 pm thinks he is getting 80g protein; the seth had told him to have an additional shake and bar in AM but he skips this has been working on getting protein in even when not hungry- makes sure to prioritize protein Meal plan given previously: 7-9am premier protein rtd 6 oz 10-12am another shake 1-3pm pure protein bar 4pm meal 8 forks protein and 8 forks veg 7-9pm pure protein bar Drinking 80 oz water Exercise routine includes: swimming 4 laps swim, walk 2 laps [employer] gym 3 x per week treadmill speed 3, incline 6-12, 20 min, 150 calories PFSH Medical History DJD (degenerative joint disease) Sleep apnea with use of continuous positive airway pressure (CPAP) Morbid obesity Obesity Goiter Hypogonadism male Vitamin D deficiency HLD (hyperlipidemia) HTN (hypertension) T2DM (type 2 diabetes mellitus) Surgical History History of sleeve gastrectomy H/O arthroscopy of left knee Hx of appendectomy Family History Father Coronary artery disease Hypertension Mother Coronary artery disease Hypertension Stroke Brother Cancer Social History Household Members: Family Housing: House Are you a primary post anesthesia care unit nurse to a significant other at home: No Do you presently have visiting nurse or other home services: No Alcohol intake: current Alcohol intake frequency: holidays/special occasions only Alcohol type: wine Patient Tobacco Use Status: Never used Tobacco Advance Directives Date on File: 07/04/22 service: No Telehealth Telehealth Telehealth Platform: Telephone Location of provider rendering services: other Location of patient: address on file Patient Identification confirmed using: Name, : Yes Telehealth method: voice only Patient verbally consented to treatment: Yes Patient verbally consented to billing insurance company: Yes Patient informed of any privacy concerns related to visit: Yes Minutes spent on Phone/Video with Pt.: 16 Assessment & Plan Assessment & Plan (1) Obesity: Code(s): E66.9 - Obesity, unspecified Category: Medical Qualifiers: Obesity type: due to excess calories (2) S/P laparoscopic sleeve gastrectomy: Code(s): Z98.84 - Bariatric surgery status Category: Surgical Plan Pt has done well on Zepbound. No side effects. Tolerating 5mg currently. Again discussed the importance of adequate protein intake and a structured meal plan as shown by the [employer] seth. RTC June for annual visit, pt will continue to text me with weight measurements and when refills needed.
[2025-01-28 11:11] VITALS: BMI 37.4
== END 2025-01-28 11:22 | disposition home or self-care (01) ==
LOC: HO.HBS 11:01
PROVIDERS: PCP Internal Medicine; Visit Provider Physician Assistant Surgical
DX: E66.9 Obesity, unspecified (principal); Z68.37 Body mass index [BMI] 37.0-37.9, adult; Z90.3 Acquired absence of stomach [part of]; Z98.84 Bariatric surgery status
CPT/HCPCS: 99213; G2211